=== PATIENT | male | born 1945 | race Caucasian/White ===

== ENCOUNTER 2024-08-31 13:39 | Inpatient (IN) ==
[2024-08-31] MEDS: OPTIRAY 320 125ml IV ONE (13:58)
--- NOTE | 2024-08-31 14:08 | CT Scan Report ---
CT head/brain wo con CLINICAL HISTORY: 79 years-old Male with neuro deficit, acute stroke suspected. Acute stroke like sy mptoms TECHNIQUE: Multiple axial CT images of the head were obtained without contrast. A dose lowering tech nique was utilized adhering to the principles of ALARA. COMPARISON: None FINDINGS: No acute intracranial hemorrhage, midline shift, intracranial mass, hydrocephalus, territorial ischem ia or abnormal extra-axial collection. Involutional changes with chronic microvascular ischemic disea se. Cerebral vascular calcifications. Calcifications are noted within the right lentiform nucleus. 12 mm hypodense focus in the posterior right mid cerebellar hemisphere on image 7 series 2. The calvarium is intact. The paranasal sinuses, mastoid air cells, and middle ear cavities are clear . IMPRESSION: 1. No acute intracranial hemorrhage, midline shift or acute territorial infarct. 2. Involutional changes with chronic microvascular ischemic disease. 3. Age-indeterminate right cerebellar lacunar infarct. ACT 112: Negative or not required by law. The above report was generated using voice recognition software. It may contain grammatical, syntax o r spelling errors. Electronically signed by: Fredis Teixeira M.D. 08/31/2024 2:06 PM
--- NOTE | 2024-08-31 14:16 | Emergency Department Note ---
Impression & Plan Stroke-like symptom, Second degree heart block, Elevated troponin I level, Carotid artery stenosis ED Provider Note NAME: JANELL MARION AGE: 79 SEX: M : 1945 ARRIVES VIA: Walk-In INFORMANT: Patient, the patient's significant other ED PROVIDER(S): Erich Zapien DO CHIEF COMPLAINT: Strokelike symptoms HPI: The patient is an 79-year-old male who presented to the emergency department for an evaluation of strokelike symptoms. The patient started having symptoms at approximately noon today. The patient was doing work with his significant other as well as his stepdaughter. 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 They got back together again approximately 1 PM. That is when they noticed that the patient was not acting appropriately. He seemed to be having difficulty speaking. He seemed to have weakness and was leaning to the side and was having trouble ambulating. The patient has a history of TIA. He does take Plavix. Reportedly he does not take any other blood thinners. His last known well was when they were split up at approximately noon. The patient himself denies having any headache. He denies having any nausea or vomiting. ROS: See above HPI for pertinent positives & negatives. A total of 10 systems reviewed and were otherwise negative. PAST MEDICAL HISTORY: See Below PAST SURGICAL HISTORY: See Below FAMILY HISTORY: See Below SOCIAL HISTORY: See Below HOME MEDICATIONS: See Below ALLERGIES: See Below VITALS: See Below PHYSICAL EXAMINATION: GENERAL: The patient is awake and alert. The patient is somewhat anxious appearing. EYES: The conjunctivae are clear. The pupils are round and reactive. EARS, NOSE, MOUTH AND THROAT: The nose is without any evidence of any deformity. NECK: The neck is nontender and supple. RESPIRATORY: Normal respiratory effort is noted there is no evidence of wheezing rhonchi or rales CARDIOVASCULAR: Irregular heart sounds were noted to auscultation. There is no definite murmur. GASTROINTESTINAL: The abdomen is soft. Abdomen is nontender. MUSCULOSKELETAL/EXTREMITIES: There is no evidence of gross deformity full range of motion is noted in the hips and shoulders. SKIN: There is no obvious evidence of any rash. There are no petechiae, pallor or cyanosis noted. NEUROLOGIC: Patient is awake alert and oriented x3. There was a slight right- sided facial droop. There appears to be forehead sparing. Speech is pressured but the words that the patient is able to make are clear. Upon standing the patient has difficulty with his right leg. The patient is able to hold each leg off of the bed for greater than 5 seconds. [employer]st strength is diminished in the right hand compared to the left. MEDICAL DECISION MAKING: The patient is an 79-year-old male who presented to the emergency department for an evaluation of strokelike symptoms. The patient had a last known well time that was approximately noon. He was inside the TNK window. On my initial evaluation the patient did have findings of right sided weakness and some word finding. The patient was made a stroke alert from triage. I evaluated the patient in CAT scan. I talked to the telestroke neurologist and when the patient was evaluated in the resuscitation room he appeared to have significant improvement of his symptoms. On my evaluation he was speaking normally. He was answering questions well. He had no further weakness in either upper or lower extremity. His significant other states that his symptoms did return at 1 point and he had some pressured speech but it quickly resolved. The patient was not a candidate for TNK because of his rapidly improving symptoms. Blood pressure did not require intervention. I discussed the patient's other laboratory and radiographic studies with him. He appears to have right-sided carotid artery disease. He also has an elevated troponin. He was found to be in second-degree heart block which could explain the patient's TIA. Ultimately I discussed his case with the on-call [facility] hospitalist. They have agreed to evaluate the patient in the emergency department for further management and disposition. Triage Nursing notes reviewed. Prior medical records reviewed Vital Signs: reviewed and remarkable for elevated blood pressure Differential diagnosis: Infection, dehydration, metabolic abnormality, hypo/hyperglycemia, electrolyte disturbance, anemia, hypoxia, cardiac sources, intracerebral event, toxicologic, neurologic, as well as other pathologies. ER treatment provided: See below Diagnostics interpreted by me: ECG: EKG was obtained in the emergency department. My interpretation is sinus rhythm at 61 bpm. No PVCs were noted. LVH was suggested by voltage criteria. There was a right bundle branch block pattern noted. No previous tracing was available. Cardiac Monitoring: An order was placed for continuous cardiac monitoring. The monitor shows a rate of 73 bpm with sinus rhythm. Second-degree heart block was noted at times. Laboratory studies: As stated above and show below. Imaging studies: See below. Radiographic imaging was reviewed by myself Consultation(s): I discussed this case with Dr. Lovelace who is on for telestroke neurology. I discussed this case with Mellissa who is on for the [facility] hospitalist group. ED COURSE: Procedures: none Critical Care: I have personally spent greater than 35 minutes of critical care time in the direct management of this patient. This includes bedside care, interpretation of diagnostic studies, and testing, discussion with consultants, patient, and family members, and other required patient management activities. This 35 minutes is in excess of all separately billable procedures. Past Med/Surg History Problem List (Updated 08/31/24 @ 15:06 by Erich Zapien DO) Carotid artery stenosis (Acute) Elevated troponin I level (Acute) Second degree heart block (Acute) Stroke-like symptom (Acute) Medical History Hypertension TIA (transient ischemic attack) Social History Smoking Status: Never smoker Preferred Language: Norwegian Feels Safe at Home: Yes Home Meds Home Medications Medication Instructions Recorded Confirmed clopidogrel 75 mg tablet 75 mg PO DAILY 08/31/24 doxycycline hyclate 20 mg tablet 20 mg PO BID 08/31/24 lisinopril 20 1 tab PO DAILY 08/31/24 mg-hydrochlorothiazide 12.5 mg tablet mirabegron 50 mg tablet,extended 50 mg PO DAILY 08/31/24 release 24 hr (Myrbetriq) pantoprazole 40 mg tablet,delayed 40 mg PO DAILY 08/31/24 release Results & Data (ED) Vital Signs Vital Signs - 24 hr 08/31/24 13:44 08/31/24 14:05 08/31/24 14:16 Temperature 36.6 C Temperature Source Temporal Artery Scan Pulse Rate 72 Pulse Rate [Apical] 62 65 Pulse Rhythm [Apical] Regular Pulse Strength [Apical] Normal Respiratory Rate 20 22 20 Respiratory Effort / Characteristics Non-Labored Spontaneous Non-Labored Spontaneous Non-Labored Spontaneous Respiratory Depth Normal Normal Normal Respiratory Pattern Regular Regular Blood Pressure [Right Arm] 141/110 H 145/94 H Blood Pressure Mean [Right Arm] 120 111 Blood Pressure Position [Right Arm] Sitting Pulse Oximetry 94 96 Oxygen Delivery Method Room Air Room Air Room Air Sepsis Recent Fever Within 48 Hours No Sepsis New/Unexplained Change in Mental Status No Sepsis Action Taken by Nursing No Action Required Home Medications Current Medication List: was personally reviewed by me Laboratory Data Attestation: I reviewed the patient's lab results. 08/31/24 14:04 08/31/24 14:04 Lab Results 08/31/24 08/31/24 Range/Units 14:04 14:11 WBC 9.21 (4.8-10.8) K/ul RBC 4.97 (4.70-6.10) M/uL Hgb 14.5 (14.0-18.0) g/dl Hct 43.4 (42.0-52.0) % MCV 87.3 (80.0-100.0) fL MCH 29.2 (25.0-34.0) pg MCHC 33.4 (32.0-36.0) g/dL RDW Std Deviation 45.9 (36.4-46.3) fL RDW Coeff of Jhoan 14.4 (11.5-14.5) % Plt Count 273 (130-400) K/uL MPV 11.5 (9.4-12.4) fL Immature Gran % (Auto) 0.4 % Neut % (Auto) 60.0 % Lymph % (Auto) 24.1 % [place] % (Auto) 11.4 % Eos % (Auto) 3.1 % Baso % (Auto) 1.0 % Neut # (Auto) 5.52 (1.40-6.50) K/uL Lymph # (Auto) 2.22 (1.20-3.40) K/uL [place] # (Auto) 1.05 H (0.11-0.59) K/uL Eos # (Auto) 0.29 (0.00-0.50) K/uL Baso # (Auto) 0.09 (0.00-0.20) K/uL Immature Gran # (Auto) 0.04 (0.01-0.20) K/uL PT 11.2 (9.0-12.0) Seconds INR 1.0 (0.9-1.1) APTT 27 (21-31) Seconds PTT Ratio 1.0 Sodium 138 (136-145) mmol/L Potassium 3.8 (3.5-5.1) mmol/L Chloride 105 (98-107) mmol/L Carbon Dioxide 25 (21-32) mmol/L Anion Gap 8 (3-11) BUN 19 (6-23) mg/dl Creatinine 1.14 (0.6-1.4) mg/dl Est Cr Clr Drug Dosing 60.7 ml/min eGFR 64.61 BUN/Creatinine Ratio 16.7 (10-20) Glucose 102 H (70-99(Fasting)) mg/dl POC Glucose 113 H (70-99) mg/dl Calcium 8.9 (8.6-10.3) mg/dl Magnesium 1.9 (1.7-2.4) mg/dl Total Bilirubin 1.8 H (0.2-1.0) mg/dl AST 32 (13-39) U/L ALT 22 (7-52) U/L Alkaline Phosphatase 69 (34-104) U/L Troponin I High Sens 503.0 H* (0-20) pg/ml Total Protein 6.9 (6.0-8.3) gm/dl Albumin 4.1 (3.4-5.0) gm/dl Globulin 2.8 (2.5-4.0) gm/dl Albumin/Globulin Ratio 1.5 (0.9-2) Administered Medications Discontinued Medications Ioversol (Optiray 320 125ml) 120 ml IV ONCE ONE Stop: 08/31/24 13:59 Last Admin: 08/31/24 13:58 Dose: 120 ml Documented By: EDK Imaging Data Attestation: I personally reviewed and interpreted this imaging study as follows: My Impression: 1 view chest x-ray was obtained in the emergency department. My interpretation is no free air or definite infiltrate, final report below. CT the brain was obtained in the emergency department. My interpretation is no intracranial hemorrhage or mass effect, final report below. Radiologist's Impression: Chest X-Ray 08/31/24 13:49 XR chest 1V portable HISTORY: 79 years-old Male neuro deficit, acute stroke suspected COMPARISON: None TECHNIQUE: AP view of the chest FINDINGS: Cardiac silhouette is enlarged. Descending thoracic aortic tortuosity. Mild coarsening of interstitium is likely chronic. No pneumothorax, pleural effusion or airspace consolidation. Bones appear grossly intact. Mild right hemidiaphragmatic elevation. IMPRESSION: Cardiomegaly without acute process. ACT 112: Negative or not required by law. The above report was generated using voice recognition software. It may contain grammatical, syntax or spelling errors. Electronically signed by: Fredis Teixeira M.D. 08/31/2024 2:[address] 08/31/24 13:49 CT head/brain wo con CLINICAL HISTORY: 79 years-old Male with neuro deficit, acute stroke suspected. Acute stroke like symptoms TECHNIQUE: Multiple axial CT images of the head were obtained without contrast. A dose lowering technique was utilized adhering to the principles of ALARA. COMPARISON: None FINDINGS: No acute intracranial hemorrhage, midline shift, intracranial mass, hydrocephalus, territorial ischemia or abnormal extra-axial collection. Involutional changes with chronic microvascular ischemic disease. Cerebral vascular calcifications. Calcifications are noted within the right lentiform nucleus. 12 mm hypodense focus in the posterior right mid cerebellar hemisphere on image 7 series 2. The calvarium is intact. The paranasal sinuses, mastoid air cells, and middle ear cavities are clear. IMPRESSION: 1. No acute intracranial hemorrhage, midline shift or acute territorial infarct. 2. Involutional changes with chronic microvascular ischemic disease. 3. Age-indeterminate right cerebellar lacunar infarct. ACT 112: Negative or not required by law. The above report was generated using voice recognition software. It may contain grammatical, syntax or spelling errors. Electronically signed by: Fredis Teixeira M.D. 08/31/2024 2:06 PM Head CTA 08/31/24 13:49 CT angio head w con, CT angio neck with con CLINICAL HISTORY: 79 years-old Male with neuro deficit, acute stroke suspected. Acute strokelike symptoms COMPARISON STUDY: Head CT same day TECHNIQUE: Following the IV administration of 120 cc of Optiray, CT angiogram of the head and neck was performed. Images are reviewed in the axial, sagittal, and coronal planes. 3-D MIPS images are created and assessed. IV contrast was administered without complication. All measurements were obtained according to NASCET criteria. A dose lowering technique was utilized adhering to the principles of ALARA. CT DOSE: 1126.42 mGy.cm FINDINGS: CT ANGIOGRAM OF THE HEAD AND NECK: Patent common carotid arteries. Atherosclerosis of the carotid bulbs, right greater than left. There is less than 50% stenosis of the proximal cervical segment left ICA. There is approximately 80% stenosis at the origin of the right ICA. The remainder of the right ICA is patent. The bilateral anterior and middle cerebral arteries are also patent. The vertebrobasilar system and posterior cerebral arteries are widely patent. There is no aneurysm, high-grade stenosis, or proximal branch occlusion identified. Dural sinuses appear patent. Involutional changes with chronic microvascular ischemic disease. Multilevel degenerative changes of the cervical spine. When apices are clear without pneumothorax. IMPRESSION: 1. High-grade stenosis of the proximal cervical segment right ICA secondary to prominent atherosclerotic plaque. 2. No additional high-grade stenosis, aneurysm, dissection or arterial occlusion identified within the head or neck. ACT 112: Negative or not required by law. The above report was generated using voice recognition software. It may contain grammatical, syntax or spelling errors. Electronically signed by: Fredis Teixeira M.D. 08/31/2024 2:17 PM Neck CTA 08/31/24 13:49 CT angio head w con, CT angio neck with con CLINICAL HISTORY: 79 years-old Male with neuro deficit, acute stroke suspected. Acute strokelike symptoms COMPARISON STUDY: Head CT same day TECHNIQUE: Following the IV administration of 120 cc of Optiray, CT angiogram of the head and neck was performed. Images are reviewed in the axial, sagittal, and coronal planes. 3-D MIPS images are created and assessed. IV contrast was administered without complication. All measurements were obtained according to NASCET criteria. A dose lowering technique was utilized adhering to the principles of ALARA. CT DOSE: 1126.42 mGy.cm FINDINGS: CT ANGIOGRAM OF THE HEAD AND NECK: Patent common carotid arteries. Atherosclerosis of the carotid bulbs, right greater than left. There is less than 50% stenosis of the proximal cervical segment left ICA. There is approximately 80% stenosis at the origin of the right ICA. The remainder of the right ICA is patent. The bilateral anterior and middle cerebral arteries are also patent. The vertebrobasilar system and posterior cerebral arteries are widely patent. There is no aneurysm, high-grade stenosis, or proximal branch occlusion identified. Dural sinuses appear patent. Involutional changes with chronic microvascular ischemic disease. Multilevel degenerative changes of the cervical spine. When apices are clear without pneumothorax. IMPRESSION: 1. High-grade stenosis of the proximal cervical segment right ICA secondary to prominent atherosclerotic plaque. 2. No additional high-grade stenosis, aneurysm, dissection or arterial occlusion identified within the head or neck. ACT 112: Negative or not required by law. The above report was generated using voice recognition software. It may contain grammatical, syntax or spelling errors. Electronically signed by: Fredis Teixeira M.D. 08/31/2024 2:17 PM Discharge Plan Visit Data Chief Complaint: TIA Symptoms Stated Complaint: WEAKNESS, DIZZINESS, SLURRED SPEECH, NUMBNESS ED Provider: Erich Zapien Discharge Problem: Stroke-like symptom, Second degree heart block, Elevated troponin I level, Carotid artery stenosis Patient Disposition: Being Evaluated by Hospitalist Forms Stand Alone Forms: My [facility] Prescriptions Prescriptions: No Action lisinopril-hydrochlorothiazide 20-12.5 mg tablet 1 tab PO DAILY clopidogrel 75 mg tablet 75 mg PO DAILY pantoprazole 40 mg tablet,delayed release (DR/EC) 40 mg PO DAILY doxycycline hyclate 20 mg tablet 20 mg PO BID mirabegron [Myrbetriq] 50 mg tablet extended release 24 hr 50 mg PO DAILY Referrals Referrals: PCP,NO [Physician] - Discharge Problem: Carotid artery stenosis Qualifiers: Laterality: right Qualified Code(s): I65.21 - Occlusion and stenosis of right carotid artery
[2024-08-31 14:17] LABS: Basophils # (auto) 0.09 K/uL (0.00-0.20); Eosinophils # (auto) 0.29 K/uL (0.00-0.50); Eosinophils % (auto) 3.1 %; Hematocrit (blood only) 43.4 % (42.0-52.0); Hemoglobin 14.5 g/dl (14.0-18.0); Immature Granulocytes # (auto) 0.04 K/uL (0.01-0.20); Immature Granulocytes % (auto) 0.4 %; Lymphocytes # (auto) 2.22 K/uL (1.20-3.40); Lymphocytes % (auto) 24.1 %; Mean Corpuscular Hemoglobin 29.2 pg (25.0-34.0); Mean Corpuscular Hgb Conc 33.4 g/dL (32.0-36.0); Mean Corpuscular Volume 87.3 fL (80.0-100.0); Mean Platelet Volume 11.5 fL (9.4-12.4); Monocytes # (auto) 1.05 K/uL (0.11-0.59); Monocytes % (auto) 11.4 %; Neutrophils # (auto) 5.52 K/uL (1.40-6.50); Platelet Count 273 K/uL (130-400); RDW Coefficient of Variation 14.4 % (11.5-14.5); RDW Standard Deviation 45.9 fL (36.4-46.3); Red Blood Count 4.97 M/uL (4.70-6.10); White Blood Count 9.21 K/ul (4.8-10.8)
--- NOTE | 2024-08-31 14:19 | CT Scan Report ---
CT angio head w con, CT angio neck with con CLINICAL HISTORY: 79 years-old Male with neuro deficit, acute stroke suspected. Acute strokelike s ymptoms COMPARISON STUDY: Head CT same day TECHNIQUE: Following the IV administration of 120 cc of Optiray, CT angiogram of the head and neck wa s performed. Images are reviewed in the axial, sagittal, and coronal planes. 3-D MIPS images are crea lisa and assessed. IV contrast was administered without complication. All measurements were obtained a ccording to NASCET criteria. A dose lowering technique was utilized adhering to the principles of ALA RA. CT DOSE: 1126.42 mGy.cm FINDINGS: CT ANGIOGRAM OF THE HEAD AND NECK: Patent common carotid arteries. Atherosclerosis of the carotid bulbs, right greater than left. There is less than 50% stenosis of the proximal cervical segment left ICA. There is approximately 80% steno sis at the origin of the right ICA. The remainder of the right ICA is patent. The bilateral anterior and middle cerebral arteries are also patent. The vertebrobasilar system and posterior cerebral arter ies are widely patent. There is no aneurysm, high-grade stenosis, or proximal branch occlusion identi fied. Dural sinuses appear patent. Involutional changes with chronic microvascular ischemic disease. Multilevel degenerative changes of the cervical spine. When apices are clear without pneumothorax. IMPRESSION: 1. High-grade stenosis of the proximal cervical segment right ICA secondary to prominent atherosclero tic plaque. 2. No additional high-grade stenosis, aneurysm, dissection or arterial occlusion identified within th e head or neck. ACT 112: Negative or not required by law. The above report was generated using voice recognition software. It may contain grammatical, syntax o r spelling errors. Electronically signed by: Fredis Teixeira M.D. 08/31/2024 2:17 PM
[2024-08-31 14:35] LABS: Albumin Globulin Ratio 1.5 (0.9-2); Albumin Level 4.1 gm/dl (3.4-5.0); BUN Creatinine Ratio 16.7 (10-20); Bilirubin,Total 1.8 mg/dl (0.2-1.0); Calcium 8.9 mg/dl (8.6-10.3); Creatinine Clr Calc Pharmacy 60.7 ml/min; Globulin 2.8 gm/dl (2.5-4.0); Magnesium 1.9 mg/dl (1.7-2.4); Potassium 3.8 mmol/L (3.5-5.1); Total Protein 6.9 gm/dl (6.0-8.3)
[2024-08-31 14:44] LABS: Partial Thromboplastin Time 27 Seconds (21-31); Prothrombin Time 11.2 Seconds (9.0-12.0)
--- NOTE | 2024-08-31 14:48 | XRay Report ---
XR chest 1V portable HISTORY: 79 years-old Male neuro deficit, acute stroke suspected COMPARISON: None TECHNIQUE: AP view of the chest FINDINGS: Cardiac silhouette is enlarged. Descending thoracic aortic tortuosity. Mild coarsening of interstitiu m is likely chronic. No pneumothorax, pleural effusion or airspace consolidation. Bones appear grossl y intact. Mild right hemidiaphragmatic elevation. IMPRESSION: Cardiomegaly without acute process. ACT 112: Negative or not required by law. The above report was generated using voice recognition software. It may contain grammatical, syntax o r spelling errors. Electronically signed by: Fredis Teixeira M.D. 08/31/2024 2:46 PM
--- NOTE | 2024-08-31 15:09 | History & Physical Report ---
Date of Service August 31, 2024 Assessment & Plan (1) Stroke-like symptoms: (2) Elevated troponin I level: Plan Roldan Raphael is an 79y/o M with PMHx significant for hypertensive heart disease without evidence of congestive heart failure, history of cryptogenic CVA/TIA in 2017 chronically treated with dual antiplatelet therapy, moderate right internal carotid artery stenosis, underlying conduction disease (right bundle branch block, left anterior fascicular block, first-degree AV block), moderate aortic root enlargement, mild ascending aortic enlargement, dyslipidemia, GERD, history of prostate cancer s/p radiation therapy, urinary incontinence and HTN who presented to the ED for evaluation of stroke-like symptoms. Patient was made a stroke alert on arrival to the ED. Telestroke was consulted and recommended against TNK use given that his last known well was around 12PM this afternoon. Stroke-Like Symptoms & High-Grade Right Internal Carotid Artery Stenosis: Vitals stable on presentation. Labs rather unremarkable except for elevated trop onin I level as per below. Head CT negative for acute intracranial hemorrhage or territorial infarct but does note involutional changes with chronic microvascular ischemic disease in addition to an age-indeterminate right cerebellar lacunar infarct. Head and neck CTA imaging revealed high-grade stenosis (80%) of the proximal cervical segment right ICA secondary to prominent atherosclerotic plaque. Lyme screen negative. Brain MRI pending. Echocardiogram pending. Neuro consult pending. Routine neurochecks, speech evaluation pending. NPO for now pending speech evaluation. Continue home Plavix and ASA. Starting patient on atorvastatin 40mg daily tomorrow morning - he was not previously on any cholesterol medications. Follow AM labs including lipid panel, Hgb A1c. PT/OT evaluations pending. Elevated Troponin I Level, Hypertensive Heart Disease & Conduction Disease: Troponin 503 on presentation. Initial EKG showed sinus rhythm with marked sinus arrhythmia with first-degree AV block and bifascicular block. Patient is without any chest pain. CXR revealed cardiomegaly without acute process. He recently established with [facility] at [facility] last month [Dr. Carpio]. Patient with known history of first-degree AV block, RBBB and left anterior fascicular block and LVH. Previous echocardiogram report from 08/28/2023 --> LVEF of 55 to 60%, mildly dilated left ventricle, moderate left ventricular hypertrophy, mild left atrial dilatation, moderately dilated aortic root and mildly dilated ascending aorta and arch. Will continue to trend troponin closely. If troponin were to rise any further, patient will most likely need to be started on IV heparin. Cardiology consult pending for further input/recommendations. EKG with chest pain PRN. Repeat EKG tomorrow AM. Updated echocardiogram pending as per above. Other Chronic Medical Conditions: GERD, urinary incontinence --> Can continue home medications for these specific conditions. DVT Prophylaxis: SCDs for now in addition to ASA/Plavix. Code Status: FULL CODE PCP: Snow Aguayo DO Disposition: Admit to PCU/Telemetry Patient seen in collaboration with Dr. Weaver. Please see addendum. I spent a total of 60 minutes coordinating, documenting, and providing care for this patient excluding time spent in the performance of separately billed services. This included personally reviewing all current laboratories and imaging studies, medical reconciliation, outpatient chart review and discussion with specialists. This chart was completed in part utilizing Speech Voice Recognition Software. Grammatical errors, random word insertions, pronoun errors, and incomplete sentences are an occasional consequence of this system due to software limitations, ambient noise, and hardware issues. Any formal questions or concerns about the content, text, or information contained within the body of this dictation should be directly addressed to the provider for clarification. History of Present Illness Chief Complaint: Stroke-Like Symptoms Primary Care Provider: Snow Aguayo DO Roldan Raphael is an 79y/o M with PMHx significant for hypertensive heart disease without evidence of congestive heart failure, history of cryptogenic CVA/TIA in 2017 chronically treated with dual antiplatelet therapy, moderate right internal carotid artery stenosis, underlying conduction disease (right bundle branch block, left anterior fascicular block, first-degree AV block), moderate aortic root enlargement, mild ascending aortic enlargement, dyslipidemia, GERD, peripheral neuropathy, history of prostate cancer s/p radiation therapy, urinary incontinence and HTN who presented to the ED for evaluation of stroke-like symptoms. History obtained from patient, family at bedside and associated chart review. Symptoms seemed to have started around 1PM this afternoon. Family at bedside mentions he had some slurring of his speech in addition to a delay in his speech during conversation. He also had some numbness and tingling in both of his upper extremities (R>L) - which has not yet fully resolved. Family noticed some lower right-sided facial drooping once they got to the ED but mentions it has seemed to improve. Patient had previously noticed some brightness in his vision yesterday that lasted approximately 45 minutes to an hour and resolved without any intervention. The visual disturbance eventually did reoccur later in the day and lasted for about 45 minutes before resolving without any intervention once again. He was having trouble walking when this all started around 1PM. Family reports that he had no balance at all when this started, mentions he couldn't even take a step forward or move around without leaning on nearby objects for support in order to prevent him from falling. No loss of bladder or bowel control after this all started. Patient reports that he has some balance issues at baseline due to his peripheral neuropathy, family mentions that he frequently stumbles at baseline. Patient did have some lightheadedness when his other symptoms started this afternoon. He does have a history of TIA but no known history of CVA. He denies any chest pain or discomfort. Patient was actually made a stroke alert on arrival to the ED. Telestroke was consulted and recommended against TNK use given that his last known well was around 12PM this afternoon. Allergies Allergy/AdvReac Type Severity Reaction Status Date / Time No Known Allergies Allergy Verified 08/31/24 16:29 Home Medications Medication Instructions Recorded Confirmed Type amlodipine 5 mg tablet 5 mg PO QAM 08/31/24 08/31/24 History aspirin 81 mg PO DAILY 08/31/24 08/31/24 History clopidogrel 75 mg tablet 75 mg PO DAILY 08/31/24 08/31/24 History lisinopril 20 1 tab PO DAILY 08/31/24 08/31/24 History mg-hydrochlorothiazide 12.5 mg tablet mirabegron 50 mg tablet,extended 50 mg PO DAILY 08/31/24 08/31/24 History release 24 hr (Myrbetriq) pantoprazole 40 mg tablet,delayed 40 mg PO DAILY 08/31/24 08/31/24 History release Past Med/Surg History Problem List Stroke-like symptoms Carotid artery stenosis (Acute) Elevated troponin I level (Acute) Second degree heart block (Acute) Stroke-like symptom (Acute) Medical History Hypertension TIA (transient ischemic attack) Social History Smoking Status: Never smoker Hx Alcohol Use: Yes Alcohol type: hard liquor Hx Substance Use: No Preferred Language: Mosotho Communication Ability: Effective Cuff Runner Required: No Beliefs That Will Affect Care: None Current Living Situation: Spouse Other Information That Helps Us Care for You: No Feels Safe at Home: Yes Safety Concerns: Feels Safe At This Time Assistive Devices: Glasses Review of Systems Review of Systems: At least ten systems reviewed and negative, except as noted in the HPI. Physical Exam Physical Exam: Please refer to Dr. Weaver's addendum for physical examination findings. Results & Data Results & Data Vital Signs (Past 12 Hours) Vital Signs Temp Pulse Pulse Resp BP Pulse Ox O2 Del Method 08/31/24 14:16 65 20 145/94 H 96 Room Air 08/31/24 14:05 62 22 141/110 H Room Air 08/31/24 13:44 36.6 C 72 20 94 Room Air Laboratory Results Short CBC 08/31/24 Range/Units 14:04 WBC 9.21 (4.8-10.8) K/ul Hgb 14.5 (14.0-18.0) g/dl Hct 43.4 (42.0-52.0) % Plt Count 273 (130-400) K/uL BMP 08/31/24 14:04 Sodium 138 Potassium 3.8 Chloride 105 Carbon Dioxide 25 BUN 19 Creatinine 1.14 Glucose 102 H Calcium 8.9 Liver Function 08/31/24 Range/Units 14:04 Total Bilirubin 1.8 H (0.2-1.0) mg/dl AST 32 (13-39) U/L ALT 22 (7-52) U/L Alkaline Phosphatase 69 (34-104) U/L Albumin 4.1 (3.4-5.0) gm/dl Diagnostic Findings Chest X-Ray 08/31/24 13:49 XR chest 1V portable HISTORY: 79 years-old Male neuro deficit, acute stroke suspected COMPARISON: None TECHNIQUE: AP view of the chest FINDINGS: Cardiac silhouette is enlarged. Descending thoracic aortic tortuosity. Mild coarsening of interstitium is likely chronic. No pneumothorax, pleural effusion or airspace consolidation. Bones appear grossly intact. Mild right hemidiaphragmatic elevation. IMPRESSION: Cardiomegaly without acute process. ACT 112: Negative or not required by law. The above report was generated using voice recognition software. It may contain grammatical, syntax or spelling errors. Electronically signed by: Fredis Teixeira M.D. 08/31/2024 2:[address] 08/31/24 13:49 CT head/brain wo con CLINICAL HISTORY: 79 years-old Male with neuro deficit, acute stroke suspected. Acute stroke like symptoms TECHNIQUE: Multiple axial CT images of the head were obtained without contrast. A dose lowering technique was utilized adhering to the principles of ALARA. COMPARISON: None FINDINGS: No acute intracranial hemorrhage, midline shift, intracranial mass, hydrocephalus, territorial ischemia or abnormal extra-axial collection. Involutional changes with chronic microvascular ischemic disease. Cerebral vascular calcifications. Calcifications are noted within the right lentiform nucleus. 12 mm hypodense focus in the posterior right mid cerebellar hemisphere on image 7 series 2. The calvarium is intact. The paranasal sinuses, mastoid air cells, and middle ear cavities are clear. IMPRESSION: 1. No acute intracranial hemorrhage, midline shift or acute territorial infarct. 2. Involutional changes with chronic microvascular ischemic disease. 3. Age-indeterminate right cerebellar lacunar infarct. ACT 112: Negative or not required by law. The above report was generated using voice recognition software. It may contain grammatical, syntax or spelling errors. Electronically signed by: Fredis Teixeira M.D. 08/31/2024 2:06 PM Head CTA 08/31/24 13:49 CT angio head w con, CT angio neck with con CLINICAL HISTORY: 79 years-old Male with neuro deficit, acute stroke suspected. Acute strokelike symptoms COMPARISON STUDY: Head CT same day TECHNIQUE: Following the IV administration of 120 cc of Optiray, CT angiogram of the head and neck was performed. Images are reviewed in the axial, sagittal, and coronal planes. 3-D MIPS images are created and assessed. IV contrast was administered without complication. All measurements were obtained according to NASCET criteria. A dose lowering technique was utilized adhering to the principles of ALARA. CT DOSE: 1126.42 mGy.cm FINDINGS: CT ANGIOGRAM OF THE HEAD AND NECK: Patent common carotid arteries. Atherosclerosis of the carotid bulbs, right greater than left. There is less than 50% stenosis of the proximal cervical segment left ICA. There is approximately 80% stenosis at the origin of the right ICA. The remainder of the right ICA is patent. The bilateral anterior and middle cerebral arteries are also patent. The vertebrobasilar system and posterior cerebral arteries are widely patent. There is no aneurysm, high-grade stenosis, or proximal branch occlusion identified. Dural sinuses appear patent. Involutional changes with chronic microvascular ischemic disease. Multilevel degenerative changes of the cervical spine. When apices are clear without pneumothorax. IMPRESSION: 1. High-grade stenosis of the proximal cervical segment right ICA secondary to prominent atherosclerotic plaque. 2. No additional high-grade stenosis, aneurysm, dissection or arterial occlusion identified within the head or neck. ACT 112: Negative or not required by law. The above report was generated using voice recognition software. It may contain grammatical, syntax or spelling errors. Electronically signed by: Fredis Teixeira M.D. 08/31/2024 2:17 PM Neck CTA 08/31/24 13:49 CT angio head w con, CT angio neck with con CLINICAL HISTORY: 79 years-old Male with neuro deficit, acute stroke suspected. Acute strokelike symptoms COMPARISON STUDY: Head CT same day TECHNIQUE: Following the IV administration of 120 cc of Optiray, CT angiogram of the head and neck was performed. Images are reviewed in the axial, sagittal, and coronal planes. 3-D MIPS images are created and assessed. IV contrast was administered without complication. All measurements were obtained according to NASCET criteria. A dose lowering technique was utilized adhering to the principles of ALARA. CT DOSE: 1126.42 mGy.cm FINDINGS: CT ANGIOGRAM OF THE HEAD AND NECK: Patent common carotid arteries. Atherosclerosis of the carotid bulbs, right greater than left. There is less than 50% stenosis of the proximal cervical segment left ICA. There is approximately 80% stenosis at the origin of the right ICA. The remainder of the right ICA is patent. The bilateral anterior and middle cerebral arteries are also patent. The vertebrobasilar system and posterior cerebral arteries are widely patent. There is no aneurysm, high-grade stenosis, or proximal branch occlusion identified. Dural sinuses appear patent. Involutional changes with chronic microvascular ischemic disease. Multilevel degenerative changes of the cervical spine. When apices are clear without pneumothorax. IMPRESSION: 1. High-grade stenosis of the proximal cervical segment right ICA secondary to prominent atherosclerotic plaque. 2. No additional high-grade stenosis, aneurysm, dissection or arterial occlusion identified within the head or neck. ACT 112: Negative or not required by law. The above report was generated using voice recognition software. It may contain grammatical, syntax or spelling errors. Electronically signed by: Fredis Teixeira M.D. 08/31/2024 2:17 PM Medications Administered Discontinued Medications Ioversol (Optiray 320 125ml) 120 ml IV ONCE ONE Stop: 08/31/24 13:59 Last Admin: 08/31/24 13:58 Dose: 120 ml Documented By: EDK Code Status & VTE Plan Code Status FULL CODE Supervising Physician Co-Signing Physician Notes Patient is an 79-year-old male with history of hypertension, TIA, hyperlipidemia, right carotid artery stenosis, bifascicular block, aortic root enlargement, prostate cancer s/p radiation and other medical problems presents with history of strokelike symptoms. Patient states that he first noticed to have bright light " flares" of both eyes yesterday transiently and resolved spontaneously. At around 1 PM today patient had slurring of speech, numbness and tingling of both legs upper extremities right greater than left and some right facial droop which resolved while in ED. He still have some right upper extremity tingling sensation. Family also noted to have balance issues associated with ambulatory dysfunction and has been leaning to objects while ambulating. 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 He did not admit to have some dizziness this afternoon as well. Please review HPI for complete details of presentation. He denies any chest pain, dyspnea, nausea, vomiting, abdominal pain, fever, chills. I personally reviewed blood work and imaging studies. Blood work showed elevated total bilirubin 1.8, elevated troponin 503. Lyme screen is negative. Chest x- ray showed no acute process. CT head showed findings suggestive of chronic microvascular ischemic disease, age indeterminant right cerebellar lacunar infarct. Head and neck CTA showed high-grade stenosis of the proximal cervical segment of the right RCA. EKG showed sinus rhythm with marked sinus arrhythmia with first-degree AV block, right bundle branch block, left anterior fascicular block, QTc 469, nonspecific ST-T wave changes. Physical Exam: Vitals signs as noted above General Appearance:Moderately built and nourished, no apparent distress Head: normocephalic, Atraumatic Eyes: normal inspection, EOMI Neck: supple, Trachea midline Respiratory/Chest: Normal breath sounds, CTA, No accessory muscle use Cardiovascular: S1, S2, No murmur Abdomen/GI:Soft, Non tender, Bowel sounds present Extremities/Musculoskeletal:normal inspection, no edema Neurologic/Psych:AAOX3,? Minimal right facial droop, speech clear, +Dysmetria,Adiadochokinesia, gait not performed otherwise grossly no focal deficits Skin: normal color, warm Strokelike symptoms concerning for acute CVA H/O R high-grade internal carotid artery stenosis H/O TIA Age indeterminant right cerebellar lacunar infarct Ambulatory dysfunction Troponin elevation : Concern for NSTEMI Chronic bifascicular block Stroke work up including lipid panel, A1C, MRI Brain, ECHO Speech and swallow eval Continue aspirin, Plavix Discussed with neurologist on-call--given CVA likely cardioembolic, advised to start IV heparin Start on Lipitor 40 mg daily Neuro checks, Neurology consult PT/OT eval Allow permissive HTN in setting of acute CVA Trend troponins Cardiology consulted as well Fall precautions I personally interviewed and examined at bedside. Patient's care is coordinated with Mellissa Johnson PA-C. I have reviewed the advanced practitioner's documentation, and I agree with plan of care. Please refer to the documentation above for details of patient's presentation and for discussion of other issues. I spent a total [id number] coordinating, documenting, and providing care for this patient excluding time spent in the performance of separately billed services.
[2024-08-31] MEDS ORDERED: POLYETHYLENE (MIRALAX) 17 GM PACK PO PRN (16:28)
--- OUTSIDE RECORDS SUMMARY | 2024-08-31 16:29 | External Medical Summary | Summary of Care ---
Author Name Unknown Organization [facility] Address [address] [place] [address] Phone [phone] Care Team Providers Care Acid Cutter Name Role Phone Snow Aguayo DO Primary Care Provider [phone] Reason for Referral * Evaluate & Treat - Unlimited Visits (Within 30 days (routine)) - Authorized Specialty Diagnoses / Procedures Referred By Gautam viera Referred To Contact Dermatology Diagnoses Skin aging Seborrheic keratosis Skin lesion Snow Aguayo DO [address] [place] [address] Referral ID Status Reason Start Date Expiration Date Visits Requested Visits Authorized [id number] Authorized Specialty Services Required 08/14/2024 999 999 Question Answer Referral Priority Within 30 days (routine) Where should this appointment be scheduled? [facility] Are you referring the patient for Mohs Surgery and have a current positive skin cancer biopsy result? No What is the reason for the patient referral? Rash/Skin Check/Eval of Lesion or Mole Reason for Visit * Reason Onset Date Comments Follow Up Immunization RSV Vaccine 08/14/2024 Encounter Details Date Type Department Care Team (Late st Contact Info) Description 08/14/2024 11:20 AM EDT Office Visit Family Practice [address] [facility], [place] [address] [place] [address] Snow Aguayo DO [address] [place] [address] Skin aging*; Seborrheic keratosis; Skin lesion; Rib deformity; Need for RSV vaccination Allergies No known active allergiesdocumented as of this encounter (statuses as of 08/14/2024) Medications Medication Sig Dispensed Refills Start Date End Date Status Aspirin 81 MG Oral Tablet Delayed Release (Aspirin 81) Take 1 Tablet by mouth every evening. Active Myrbetriq 50 MG Oral Tablet Extended Release 24 Hour (Mirabegron ER)Indications:Histor y of prostate cancer Take 1 Tablet by mouth daily. 100 Tablet 3 01/15/2024 Active amLODIPine Besylate 5 MG Oral Tablet (Norvasc)Indications: Hypertension goal BP (blood pressure) < 140/90 Take 1 Tablet by mouth in the morning. 100 Tablet 3 01/17/2024 Active Clopidogrel Bisulfate 75 MG Oral Tablet (pLAVix)Indications:H istory of TIA (transient ischemic attack) Take 1 Tablet by mouth in the morning. 100 Tablet 3 01/17/2024 Active Doxycycline Hyclate 20 MG Oral Tablet Take 1 Tablet by mouth in the morning and 1 Tablet before bedtime. 200 Tablet 3 01/17/2024 Active Lisinopril 20 MG Oral Tablet (Prinivil)Indications :Hypertension goal BP (blood pressure) < 140/90 Take 1 Tablet by mouth every evening. 100 Tablet 3 01/17/2024 Active Pantoprazole Sodium 40 MG Oral Tablet Delayed Release (Protonix)Indications :Gastroesophageal reflux disease, unspecified whether esophagitis present Take 1 Tablet by mouth in the morning. 100 Tablet 3 01/17/2024 Active Metamucil 4 in 1 Fiber 43 % Oral Powder (Psyllium) Take by mouth daily. Active Lisinopril-hydroCHLOR Othiazide 20-12.5 MG Oral TabletIndications:Ess ential hypertension with goal blood pressure less than 140/90 Take 1 Tablet by mouth in the morning. 100 Tablet 1 04/09/2024 Active RSV Pre-Fusion F A&B Vac Rcmb 120 MCG/0.5ML Intramuscular Solution Reconstituted (Abrysvo)Indications: Need for RSV vaccination Inject 0.5 mL into a large muscle once for 1 dose. 1 Each 08/14/2024 08/15/2024 Active documented as of this encounter (statuses as of 08/14/2024) Active Problems Problem Noted Date Diagnosed Date Aortic dilatation 01/09/2024 History of TIA (transient ischemic attack) 01/09 Essential hypertension with goal blood pressure less than 140/90 01/08/2024 History of prostate cancer 01/08/2024 GERD (gastroesophageal reflux disease) 4 documented as of this encounter (statuses as of 08/14/2024) Immunizations Name Administration Dates Next Due COVID-19 mRNA, LNP-s, No Pre serve, 2-Dose Series (Moderna) 10/08/2021,02/05/2021,01/08/2021 Pneumococcal Conjugate Vacci ne, 20-valent ([id number]) 10/02/2022 RSV Vac., Bivalent, Perfusio n F, Pf,0.5 Ml (Abrysvo) 08/14/2024 Seasonal Influenza, Quadriva lent Hd (Fluzone Hd) 10/16/2023 TDAP (age 10 and older)(Boostrix) 01/15/2024 Zoster Vaccine Recombinant (Shingrix) 02/12/2023 ,09/25/2019 documented as of this encounter Social History Tobacco Use Types Packs/Day Years Used Date Smoking Tobacco: Former Cigarettes 0.3 42.9 1 11/1980 - 09/1979 Passive Smoke Exposure: Never Smokeless Tobacco: Never Tobacco Cessation:Counseling Given: Yes Alcohol Use Standard Drinks/Week Comments Yes 7 (1 standard drink = 0.6 oz pur e alcohol) 1 bourbon drink a day PHQ-2 Answer Date Recorded PHQ Adult Total Score 0 05/27/2024 Hunger Vital Sign Answer Date Recorded Within the past 12 months, y ou worried that your food would run out before you got the money to buy more. Never true 01/08/20 24 Within the past 12 months, t he food you bought just didn't last and you didn't have money to get more. Never true 01/08/2024 Childcare Answer Date Recorded Do you feel overwhelmed with taking care of a child, family member or friend? No 01/08/2024 Does your family need help f inding childcare? (Household - for ages 0-17 years) Not on file 01/08/2024 Clothing Answer Date Recorded Have you been unable to get clothing when it was really needed? No 01/08/2024 Is your family able to get c lothes or diapers when needed? (Household - for ages 0-17 years) Not on file 01/08/2024 Personal Safety Answer Date Recorded Do you feel unsafe or have concerns for your saf ety? No 01/08/2024 Do you have concerns for you r family's safety? (Household - for ages 0-17 years) Not on file 01/08/2024 Utilities Answer Date Recorded Do you have trouble paying y our heating, water, or electric bill? No 01/08/2024 Is your family able to pay t he heat, water, or electric bill? (Household - for ages 0-17 years) Not on file 01/08/2024 Does your family have access to good internet? (Household - for ages 0-17 years) Not on file 01/08/2024 Employment Status Answer Date Recorded Are you unemployed or without regular income? No 01/08/2024 [facility] the [facility] have a [facility] income? (Household - for ages 0-17 years) Not on file 01/08/2024 Social Connections Answer Date Recorded How often do you feel lonely or isolated from th ose around you? Never 01/08/2024 Financial Resource Strain Answer Date R ecorded Do you have any trouble payi ng for your medications, or do you think you might in the future? No 01/08/2024 Does your family have troubl e paying for medicine? (Household - for ages 0-17 years) Not on file 01/08/2024 Transportation Needs Answer Date Record ed READ ONLY Do you have troubl e getting a ride to medical visits or work? Never True 01/08/2024 Does your family have a hard time getting a ride to doctors visits? (Household - for ages 0-17 years) Not on file 01/08/2024 Has lack of transportation k ept you from medical appointments, meetings, work, or from getting things needed for daily living? Check all that apply. (Adult - for ages 18 years and over) Not on file 01/08/2024 Do you (or your family) have trouble finding or paying for a ride (transportation)? (Household - for ages 0-17 years) Not on file 01/08/2024 Housing Stability Answer Date Recorded Do you currently live in a s helter or have no steady place to sleep at night? No 01/08/2024 READ ONLY Do you think you a re at risk of becoming homeless? No 01/08/2024 Does your family worry about paying for your home or becoming homeless? (Household - for ages 0-17 years) Not on file 0 01/08/2024 Are you homeless or worried that you might be in the future? (Adult - for ages 18 years and over) Not on file Are you (or your family) alejandra eless or worried that you might be in the future? (Household - for ages 0-17 years) Not on file Food Insecurity Answer Date Recorded Do you need food for this week? No 01/08/2024 Are you able to get enough f ood for your family? (Household - for ages 0-17 years) Not on file 01/08/2024 Does your family need food t his week? (Household - for ages 0-17 years) Not on file 01/08/2024 Do you always have enough fo od for your family? (Household - for ages 0-17 years) Not on file 01/08/2024 Sex and Gender Information Value Date Recorded Sex Assigned at Male 04/18/2024 4:35 PM EDT Gender Identity Male 04/18/2024 4:35 PM EDT Sexual Orientation Straight 04/18/2024 4: 35 PM EDT Job Start Date Occupation Industry Not on file Not on file Not on file documented as of this encounter Last Filed Vital Signs Vital Sign Reading Time Taken Comments Blood Pressure 132/88 08/14/2024 11:25 AM EDT Pulse 70 08/14/2024 11:25 AM EDT Temperature 36.6 C (97.8 F) 08/14/2024 11:25 AM E DT Respiratory Rate 16 08/14/2024 11:25 AM EDT Oxygen Saturation 95% 08/14/2024 11:25 AM EDT Inhaled Oxygen Concentration - - Weight 104 kg (229 lb 3.2 oz) 08/14/2024 11:25 A M EDT Height 176.5 cm (5' 9.5") 08/14/2024 11:25 AM ED T Body Mass Index 33.36 08/14/2024 11:25 AM EDT documented in this encounter Patient Instructions * Patient Instructions* Spencer, Aneta, PEACE OFFICER - 08/14/2024 11:58 AM EDT Possible side effects of RSV vaccine, (Respiratory Syncytial Virus), are usually mild and can include: Soreness, swelling or redness at injection site Low grade fever Body aches or joint pain Headache Nausea or diarrhea You may use a fever/pain reducing medication for these symptoms. LET YOUR DOCTOR KNOW IMMEDIATELY IF YOU HAVE DIFFICULTY BREATHING OR SWALLOWING, EXPERIENCE ITCHINGOF FEET OR HANDS, HAVE SWELLING OF EYES, FACE OR INSIDE OF NOSE. documented in this encounter Progress Notes * Aneta Palmer LPN - 08/14/2024 11:58 AM EDT Does the patient have an illness today with a fever more than 101F? No Has the patient ever had a serious allergic reaction after receiving a vaccination? No Does the patient have Medicare Part D? No Verified patient has prescription/drug coverage. Patient has been informed that [employer] co-pays are close to $0. In most cases co-pays will be around $10. The maximum co-pay patients may get could be as high as $200 not applicable. RSV Vaccine Information Sheet has been provided. Aneta Palmer LPN 08/14/2024 11:58 AM IMMUNIZATION ADMINISTRATION DOCUMENTATION Time Out Procedure Performed: Yes Patient Identified (Ask Name/Date of ): Yes Patient allergic to latex?No VFC Stock? No Immunization(s) verified: Yes, Immunization Name: RSV, VIS Sheet(s) given: Yes Verified Side and Site: Yes Verified Shot(s) with Parent(s)/Patient: Yes RSV was administered per clinic protocol. Patient received the RSV VIS (Vaccine Information Sheet). Aneta Palmer LPN, 08/14/2024, 11:58 AM * Snow Aguayo DO - 08/14/2024 11:15 AM EDT SUBJECTIVE: Chief Complaint Patient presents with Follow Up HPI: Roldan Raphael is a 79 year old male who presents today for regular return. Pt states that he would like to see a monologist. He notes a number of lesions on his skin that he would like removed. He notes he is using a liquid every day that is not working. It was OTC. Pt would like to establish in this area. Pt notes that his left rib cage. He notes that it sticks out further. Has a history of rib fracture. Not sure which side. Pt had his flu vaccine at [facility]. He would like RSV vaccine today. PHM: Patient Active Problem List Diagnosis Essential hypertension with goal blood pressure less than 140/90 History of prostate cancer GERD (gastroesophageal reflux disease) Aortic dilatation (HCC) History of TIA (transient ischemic attack) Current Outpatient Medications Medication Sig Dispense Refill Aspirin 81 MG Oral Tablet Delayed Release (Aspirin 81) Take 1 Tablet by mouth every evening. Myrbetriq 50 MG Oral Tablet Extended Release 24 Hour (Mirabegron ER) Take 1 Tablet by mouth daily. 100 Tablet 3 amLODIPine Besylate 5 MG Oral Tablet (Norvasc) Take 1 Tablet by mouth in the morning. 100 Tablet 3 Clopidogrel Bisulfate 75 MG Oral Tablet (pLAVix) Take 1 Tablet by mouth in the morning. 100 Tablet 3 Doxycycline Hyclate 20 MG Oral Tablet Take 1 Tablet by mouth in the morning and 1 Tablet before bedtime. 200 Tablet 3 Lisinopril 20 MG Oral Tablet (Prinivil) Take 1 Tablet by mouth every evening. 100 Tablet 3 Pantoprazole Sodium 40 MG Oral Tablet Delayed Release (Protonix) Take 1 Tablet by mouth in the morning. 100 Tablet 3 Metamucil 4 in 1 Fiber 43 % Oral Powder (Psyllium) Take by mouth daily. Lisinopril-hydroCHLOROthiazide 20-12.5 MG Oral Tablet Take 1 Tablet by mouth in the morning. 100 Tablet 1 No current facility-administered medications for this visit. Past Medical History: Diagnosis Date GERD (gastroesophageal reflux disease) History of prostate cancer Hypertension goal BP (blood pressure) < 140/90 Peripheral neuropathy TIA (transient ischemic attack) x2, he feels it was stress related Past Surgical History: Procedure Laterality Date CATARACT SURGERY[place] [address] - REMOVE TONSILS INFORMATION prostate radiation INFORMATION bilateral knee replacements INFORMATION cut thumb off with a saw, does well Review of patient's allergies indicates: No Known Allergies Family History Problem Relation Name Age of Onset Other (Other) Mother Occipital glioma Diabetes Father Hypertension Brother Diabetes Brother Family Status Relation Status Mo (Not Specified) Fa (Not Specified) Bro (Not Specified) Bro Alive Beau Alive Beau Alive Social History Tobacco Use Smoking status: Former Current packs/day: 0.25 Average packs/day: 0.3 packs/day for 42.9 years (10.7 ttl pk-yrs) Types: Cigarettes Start date: 09/1981 Quit date: 09/1979 Passive exposure: Never Smokeless tobacco: Never Substance Use Topics Alcohol use: Yes Alcohol/week: 7.0 standard drinks of alcohol Types: 7 1.5 oz of liquor per week Comment: 1 bourbon drink a day Vaping/E-Cigarette Use Vaping/E-Cigarette Use Never User Vaping/E-Cigarette Substances Vaping/E-Cigarette Devices REVIEW OF SYSTEMS: Review of Systems Constitutional: Negative for chills, fatigue, fever and unexpected weight change. Respiratory: Negative for cough, chest tightness, shortness of breath and wheezing. Cardiovascular: Negative for chest pain, palpitations and leg swelling. Gastrointestinal: Negative for abdominal pain, constipation, diarrhea, nausea and vomiting. Musculoskeletal: Negative for arthralgias, gait problem and joint swelling. As per HPI Skin: Negative for color change, pallor and rash. As per HPI OBJECTIVE: BP 132/88 (BP Site: Left Arm, BP Position: Sitting, BP Cuff Size: Large) | Pulse 70 | Temp 36.6 C(97.8 F) (Tympanic) | Resp 16 | Ht 1.765 m (5' 9.5") | Wt 104 kg (229 lb 3.2 oz) | SpO2 95% | BMI33.36 kg/m | BSA 2.26 m PHYSICAL EXAM: Physical Exam Constitutional: General: He is not in acute distress. Appearance: He is well-developed. Cardiovascular: Rate and Rhythm: Normal rate and regular rhythm. Heart sounds: Normal heart sounds. No murmur heard. No friction rub. No gallop. Pulmonary: Effort: Pulmonary effort is normal. No respiratory distress. Breath sounds: Normal breath sounds. No wheezing or rales. Abdominal: General: Bowel sounds are normal. There is no distension. Palpations: Abdomen is soft. Tenderness: There is no abdominal tenderness. There is no guarding. Musculoskeletal: General: Deformity (lower left ribcage sticking out some) present. No tenderness. Normal range of motion. Skin: General: Skin is warm and dry. Coloration: Skin is not pale. Findings: No erythema or rash. Neurological: Mental Status: He is alert and oriented to person, place, and time. ASSESSMENT/PLAN: (L90.8) Skin aging (primary encounter diagnosis) (L82.1) Seborrheic keratosis (L98.9) Skin lesion Plan: DERMATOLOGY REFERRAL OP Multiple skin tags and SKs noted. ?some actinic keratosis on scalp. Pt would like to establish withdermatology here. (M95.4) Rib deformity Plan: XR RIBS UNILATERAL W/PA CHEST MINIMUM 3 VIEWS Pt will complete rib x-ray. ?if related to previous rib fractures. (Z29.11) Need for RSV vaccination Plan: RSV Pre-Fusion F A&B Vac Rcmb 120 MCG/0.5ML Intramuscular Solution Reconstituted (Abrysvo), RSV VAC, BIVALENT, PERF, PF, 0.5 ML, 60YRS AND ABOVE Vaccine given. See admin record. Follow-up: 4 months Total time today including reviewing chart before the visit, pertinent labs, imaging reports, face to face time, and documentation time was 34 minutes. Snow Aguayo DO documented in this encounter Nursing Notes * Aneta Palmer LPN - 08/14/2024 11:19 AM EDT Patient here for routine follow up visit. Pt reports he is taking a supplement for neuropathy - does not know the name of it. Would like derm referral for exam of skin tags. Reports incontinence since prostate radiation. Pt thinks he had Flu vaccine at [facility] this season. Declined COVID vaccine. Will consider RSV vaccine. documented in this encounter Plan of Treatment Upcoming Encounters Date Type Department Care Team (Late st Contact Info) Description 08/14/2024 12:30 PM EDT Imaging XR Imaging [address], [place] [address] [place] [address] Arrived 09/02/2024 11:00 AM EDT Office Visit Urology, [facility] [address] [facility] [place] [id number] Teddy Steinberg MD [address] [place] [address] 10/07/2024 2:30 PM EST Cardiac Studies Cardiac Studies, [facility] [address] [facility] [place] [address] 10/07/2024 3:30 PM EST Imaging Vascular Lab, [facility] 2nd Floor, [place] [address] [facility] [place] [address] 11/10/2024 9:20 AM EST Office Visit Family Practice [address], [place] [address] [place] [address] Snow Aguayo, DO [address] [place] [address] 02/12/2025 3:30 PM EDT Office Visit Cardiology, [facility] [address] [facility] [place] [address] En Carpio, DO [address] [facility] [address] Pending Results Name Type Priority Associated Diagnoses Date /Time XR RIBS UNILATERAL W/PA CHEST MINIMUM 3 VIEWS Medical Imaging Routine Rib deformity 08/14/2024 12:18 PM EDT Scheduled Referrals Name Type Priority Associated Diagnoses Orde r Schedule DERMATOLOGY REFERRAL OP Referral Within 30 days (routine) Skin aging Seborrheic keratosis Skin lesion Ordered: 08/14/2024 Health Maintenance Due Date Last Done Comments Influenza Vaccine (FLU shot) (#1) 2024 10/16/2023 COVID-19 Vaccine (2023-2 5 season) 2024 10/08/2021, 02/05/2021, 01/08/2021 Postponed from 07/20/2024 (Patient Declined After Education) GFR 04/09/2025 04/09/2024, 02/27/2019, 02/27/2019 Adult Wellness Visit 05/27/2025 05/27/2024 Depression Screening 05/27/2025 05/27/2024, 04/09/2024 Albumin/Creatinine Ratio 04/09/2027 04/09/2024 DTap/Tdap Vaccines (2 - Td o r Tdap) 01/15/2034 01/15/2024 Pneumococcal Vaccine: 65+ Years Completed 10/02/2022 Zoster Vaccines Completed 02/12/2023, 09/25/2019 HPV (Gardasil) Vaccine Aged Out No lo nger eligible based on patient's age to complete this topic Hepatitis B Vaccine Aged Out No longe r eligible based on patient's age to complete this topic MENINGOCOCCAL (MENACTRA/MENVEO) Aged Out No longer eligible b ased on patient's age to complete this topic documented as of this encounter Medical Devices Not on filedocumented as of this encounter Visit Diagnoses Diagnosis Skin aging- Primary Other specified hypertrophic and atrophic condition of skin Seborrheic keratosis Other seborrheic keratosis Skin lesion Unspecified disorder of skin and subcutaneous tissue Rib deformity Acquired deformity of chest and rib Need for RSV vaccination Need for prophylactic vaccination and inoculation against respiratory syncytial virus documented in this encounter Care Teams Acid Cutter Relationship Specialty Start Date End Date Snow Aguayo DO [address] [place] [address] PCP - General Family Medicine 05/26/24 documented as of this encounter
--- OUTSIDE RECORDS SUMMARY | 2024-08-31 16:30 | External Medical Summary | Summary of Care ---
Author Name Unknown Organization [facility] Address [address] [facility] [address] Phone [phone] Care Team Providers Care Dispatch Manager Name Role Phone Dede Snow Tristan DO Primary Care Provider + [phone] Reason for Visit * Reason Onset Date Comments Adult Annual Wellness Visit, Initial Visit Adult Annual Wellness Visit, Initial Visit 05/27 Encounter Details Date Type Department Care Team (Late st Contact Info) Description 05/27/2024 10:00 AM EDT Nurse Only Ancillary [facility] [address] [place] [address] College, Nurse Annual Wellness Visit [address] [address] Adult Annual Wellness Visit, Initial Visit... Allergies No known active allergiesdocumented as of this encounter (statuses as of 05/27/2024) Medications Medication Sig Dispensed Refills Start Date [...] 43 % Oral Powder (Psyllium) Take by mouth. Act malcolm Lisinopril-hydroCHLOR Othiazide 20-12.5 MG Oral TabletIndications:Ess ential hypertension with goal blood pressure less than 140/90 Take 1 Tablet by mouth in the morning. 100 Tablet 1 04/09/2024 Active documented as of this encounter (statuses as of 05/27/2024) Active Problems Problem Noted Date Diagnosed Date Aortic dilatation 01/09/2024 History of TIA (transient ischemic attack) 01/09 Essential hypertension with goal blood pressure less than 140/90 01/08/2024 History of prostate cancer 01/08/2024 GERD (gastroesophageal reflux disease) 4 documented as of this encounter (statuses as of 05/27/2024) Immunizations Name Administration Dates Next Due COVID-19 mRNA, LNP-s, No Pre serve, 2-Dose Series (Moderna) 10/08/2021,02/05/2021,01/08/2021 Pneumococcal Conjugate Vacci ne, 20-valent ([id number]) 10/02/2022 Seasonal Influenza, Quadriva lent Hd (Fluzone Hd) 10/16/2023 TDAP (age 10 and older)(Boostrix) 01/15/2024 Zoster Vaccine Recombinant (Shingrix) 02/12/2023 ,09/25/2019 documented as of this encounter Social History Tobacco Use Types Packs/Day Years Used Date Smoking Tobacco: Former Cigarettes 0.3 42.7 1 11/1980 - 09/1979 Passive Smoke Exposure: Never Smokeless Tobacco: Never Tobacco Cessation:Counseling Given: Not Answered Alcohol Use Standard Drinks/Week Comments Yes 7 [...] No 01/08/2024 Does the household have a re gular source of income? (Household - for ages [...] Sign Reading Time Taken Comments Blood Pressure 122/78 05/27/2024 10:35 AM EDT Pulse 68 05/27/2024 10:35 AM EDT Temperature 35.8 C (96.5 F) 05/27/2024 10:35 AM E DT Respiratory Rate - - Oxygen Saturation 97% 05/27/2024 10:35 AM EDT Inhaled Oxygen Concentration - - Weight 101 kg (222 lb 9.6 oz) 05/27/2024 10:35 A M EDT Height 176.5 cm (5' 9.5") 05/27/2024 10:35 AM ED T Body Mass Index 32.4 05/27/2024 10:35 AM EDT documented in this encounter Patient Instructions * Patient Instructions* India Hawk RN - 05/27/2024 11:06 AM EDT Hi Mr. Raphael, As your primary care physician, I know that regular visits with my patients who have several chronic conditions can go a long way in helping you stay healthy. Many times, the clinic team and I are in touch with you and/or other care team members between office visits to adjust medications, discuss any changes in your health, and review our care plan to make sure it is still meeting your needs. I am dedicated to helping you take a more active role in your overall care. It is important that there are resources available to you, so I created a personalized plan of care with a Health Calendar for you, which is included on the next page of this letter. Below is a list that summarizes your electronic health record: Health Maintenance Due: There are no preventive care reminders to display for this patient. Current Medication List: (as of Visit date not found (in office), Visit date not found (telemedicine) ) Current Outpatient Medications Medication Sig Dispense Refill [...] mouth in the morning and 1 Tablet beforebedtime. 200 Tablet 3 Lisinopril 20 MG Oral Tablet (Prinivil) Take 1 Tablet by mouth every evening. 100 Tablet 3 Pantoprazole Sodium 40 MG Oral Tablet Delayed Release (Protonix) Take 1 Tablet by mouth in the morning. 100 Tablet 3 Metamucil 4 in 1 Fiber 43 % Oral Powder (Psyllium) Take by mouth. Lisinopril-hydroCHLOROthiazide 20-12.5 MG Oral Tablet Take 1 Tablet by mouth in the morning. 100 Tablet 1 No current facility-administered medications for this visit. Current List of Allergies: (as of Visit date not found (in office), Visit date not found (telemedicine) ) Review of patient's allergies indicates: No Known Allergies Most Recent Lab Results: Results for orders placed or performed in visit on 05/01/24 BILIRUBIN, TOTAL Result Value Ref Range Bilirubin, Total 1.3 (H) <=1.2 mg/dL Sincerely, Snow Aguayo, DO 05/27/2024 [facility] (as of Visit date not found (in office), Visit date not found (telemedicine) ) Care needs Care needs Last completed Due next COVID-19 Vaccine ( season) 2021 05/28/2024 (Originally 07/20/2023) Flu vaccine (recommended) (1) 10/16/2023 07/20/2024 Kidney Function Test 04/09/2024 04/09/2025 Urine albumin/creatinine test 04/09/2024 04/09/2027 Diphtheria, tetanus & pertussis vaccines (2 - Td or Tdap) 01/15/2024 01/15/2034 As you look over the recommended services, be sure to check with your insurance company to determine what's covered. [employer] is a great tool that helps you review your medical record online, including test results, doctor notes and your health summary. You can also schedule appointments with me and other members of your care team, request prescription refills and ask for advice related to your medical conditions at [email or web address]. documented in this encounter Progress Notes * India Hawk RN - 05/27/2024 10:37 AM EDT AD8 Dementia Screening Interview Person answering questions: patient Remember, "Yes, a change" indicates that there has been a change in the last several years caused by cognitive (thinking and memory) problems 1. Problems with judgement (eg: problems making decisions, bad financial decisions, problems with thinking). No (0) 2. Less interest in hobbies/activities. No (0) 3. Repeats the same things over and over (questions, stories, or statements). No (0) 4. Trouble learning how to use a tool, appliance, or gadget (eg: VCR, computer, microwave, remote control). No (0) 5. Forgets correct month or year. No (0) 6. Trouble handling complicated financial affairs (eg: balancing checkbook, income taxes, paying bills). No (0) 7. Trouble remembering appointments. No (0) 8. Daily problems with thinking and/or memory. No (0) TOTAL AD8: 0 - AD8 Dementia Screening Score The final score is a sum of the number items marked "Yes, A Change". 0 - 1: Normal cognition; 2 or greater: Cognitive impairments is likely to be present - further testing required Adult Annual Wellness Visit: Roldan Raphael is a 79 year old male who presents for an Adult Annual Wellness Visit. Depression Screening: Did the patient complete the screening questionnaire for Depression? Yes Is the patient's total score for Depression 15 or greater? No, no further intervention needed, unless requested by patient. Did the patient answer positively to the suicide question? No, no further intervention needed, unless requested by patient. In general, compared to other people your age, what would you say that your health is? Excellent Ht Readings from Last 1 Encounters: 05/27/24 1.765 m (5' 9.5") Wt Readings from Last 1 Encounters: 05/27/24 101 kg (222 lb 9.6 oz) Body Mass Index: BMI Greater than 30 Body mass index is 32.4 kg/m. BP Readings from Last 1 Encounters: 05/27/24 122/78 Medical/Surgical/Family History Reviewed: Yes Past Medical History: Diagnosis Date GERD (gastroesophageal reflux disease) History of prostate cancer Hypertension goal BP (blood pressure) < 140/90 Peripheral neuropathy TIA (transient ischemic attack) x2, he feels it was stress related Past Surgical History: Procedure Laterality Date CATARACT SURGERY[place] [address] - REMOVE TONSILS INFORMATION prostate radiation INFORMATION bilateral knee replacements INFORMATION cut thumb off with a saw, does well Family History Problem Relation Name Age of Onset Other (Other) Mother Occipital glioma Diabetes Father Hypertension Brother Diabetes Brother Has patient ever had cancer? History of cancer, type: prostate and location: prostate Social History Tobacco Use Smoking status: Former Current packs/day: 0.25 Average packs/day: 0.3 packs/day for 42.7 years (10.7 ttl pk-yrs) Types: Cigarettes Start date: 09/1981 Quit date: 09/1979 Passive exposure: Never Smokeless tobacco: Never Substance Use Topics Alcohol use: Yes Alcohol/week: 7.0 standard drinks of alcohol Types: 7 1.5 oz of liquor per week Comment: 1 bourbon drink a day Vaping/E-Cigarette Use Vaping/E-Cigarette Use Never User Vaping/E-Cigarette Substances Vaping/E-Cigarette Devices Tobacco/Alcohol screening completed today? Yes Hospital Care: Admissions (within the last year): Not Applicable ER within 30 days: No Does the patient have an Advance Directives/Living Will? Yes Last Physical Exam: Last physical exam: 04/09/2024 Does patient see primary provider regularly? Yes Does patient see other providers? Yes, Specialist Patient Care Team updated? Yes Review of patient's allergies indicates: No Known Allergies Immunization History Administered Date(s) Administered COVID-19 mRNA, LNP-s, No Preserve, 2-Dose Series (Moderna) 01/08/2021, 02/05/2021, 10/08/2021 Pneumococcal Conjugate Vaccine, 20-valent ([id number]) 10/02/2022 Seasonal Influenza, Quadrivalent Hd (Fluzone Hd) 10/16/2023 TDAP (age 10 and older)(Boostrix) 01/15/2024 Zoster Vaccine Recombinant (Shingrix) 09/25/2019, 02/12/2023 Current Outpatient Medications Medication Sig Dispense Refill [...] 43 % Oral Powder (Psyllium) Take by mouth. Lisinopril-hydroCHLOROthiazide 20-12.5 MG Oral Tablet Take 1 Tablet by mouth in the morning. 100 Tablet 1 No current facility-administered medications for this visit. Patient Active Problem List Diagnosis Essential hypertension with goal blood pressure less than 140/90 History of prostate cancer GERD (gastroesophageal reflux disease) Aortic dilatation (HCC) History of TIA (transient ischemic attack) Medication Compliance: Patient is able to obtain all of his medications? Yes Patient takes medications as prescribed? Yes Patient manages own medications: Yes Patient uses a pill box? Yes, refill(s) completed by self Dental Exam: Yes: Every 6 Months Eye Screening: Yes: Every year Are you having trouble with hearing? Yes Do you use an assistive device to help your hearing? Yes Exercise Screening: exercises 1-2 times per week Nutrition Assessment: Eats a balanced diet and Eats three meals a day Pain Screening: Are you having any pain? No Sleep Screening Tool 'STOP': Do you snore? No Do you feel fatigued during the day? No Do you wake up feeling like you haven't slept? No Have you been told you stop breathing at night? No Do you gasp for air or choke while sleeping? No Have you been told you have Sleep Apnea? No Do you have high blood pressure or are on medication(s) to control high blood pressure? Yes SCORE: If you check YES to two or more questions, make a referral for Obstructive Sleep Apnea Patient and Caregiver Support System: Patient lives with a spouse Means of Transportation: Drives. Concerns identified are: neuropathy in feet Patient lives in Two Story - How many stairs: 16 steps-has hand rail Community Resources: Not Applicable Functional Status and ADL Skills: Has patient ever had an amputation? No Functional Assessment: 90- Able to carry on normal activity, minor symptoms of disease Ambulation: Patient ambulates without assistive device. Independent Dressing: Gets clothes and dresses without any assistance: Independent Able to move freely in chair or bed including turning over: Independent Repositioning (bed or chair): Not applicable Transfers: Independent Toileting: Goes to bathroom, uses toilet, arranges clothes and returns without any assistance: Independent Toileting: continent of bowel and incontinent of bladder-some bladder leakage Feeding: Self Bathing: Self; shower inside tub, rubber mat in tub, steps out onto a mat/rug Requires none assistance with ADLs. Instrumental ADL's: Shopping: Independent Housekeeping: Independent Handling Finances: Independent DME Vendor Name: Not Applicable Fall Risk Assessment: Can the patient demonstrate that he can stand from a sitting position? Yes Has the patient had a fall within the last 6 months? Yes Does the patient have a problem with his gait or balance? Yes Does the patient take 4 or more prescription medicines? Yes Does the patient use sedatives or narcotics? No Fall Risk Factors Present: History of falls within the past 6 months Yes Uses more than 4 medications Balance or gait disturbances Older than age 70 Mwd-Tc-tye-Go Test: Time began at 10;00. Patient stood from sitting position and walked approximately 10 feet, returnedand sat down. Total time for xke-qw-qkm-go test was 7.48 seconds. Jlk-Ef-oym-Go Test completed? Yes Gender Specific Preventative Plan: Health Maintenance Topic Date Due COVID-19 Vaccine (2022- season) 2024 (Originally 07/20/2023) Influenza Vaccine (FLU shot) (1) 07/20/2024 GFR 04/09/2025 Depression Screening 05/27/2025 Albumin/Creatinine Ratio 04/09/2027 DTaP,Tdap,and Td Vaccines (2 - Td or Tdap) 01/15/2034 Zoster Vaccines Completed Pneumococcal Vaccine: 65+ Years Completed Hepatitis B Vaccine Aged Out MENINGOCOCCAL (MENACTRA/MENVEO) Aged Out HPV (Gardasil) Vaccine Aged Out Follow Up/ Referrals/Handouts: No further action needed Routine general medical examination at a health care facility (Primary) Discussed bringing in a copy of his living will to have scanned into his chart. Pt states he has some balance issues-pt agreeable to a balance evaluation with Donna. Pt did have a fall states was working in he garage and foot got tangled in an extension cord-no injury. Pt hashistory of peripheral neuropathy Patient has been verbally educated on the need or importance of Immunizations: covid and has declined topic(s). Pt will consider in future but declines today India Hawk RN documented in this encounter Miscellaneous Notes * Pt Handout (on AVS) - India Hawk RN - 05/27/2024 10:51 AM EDT Images from the original note were not included. [id number] Preventing Falls: Making Changes in Your Living Space Is your living space filled with hazards that could cause you to fall? Changes can make you safer. They could even save your life. Take a careful look around your home. Change what you can on your own. Hire someone or ask friends or family to help with harder tasks. Be sure to add a nonslip mat to the inside of your shower or bathtub. Always keep a nightlight on. Keep a clear path from your bed to the bathroom. Move items from higher shelves to lower ones. Remove hazards Remove things that can trip you, like throw rugs, boxes, piles of paper, or cords. Nail down rugs or carpeting if you don't want to remove them. Use slip- resistant backing. Don't store items on stairs. Keep walkways clear. Clean up spills right away. Replace glass tables with wooden ones. They're safer if you fall. Add safety devices Add handrails to both sides of stairs. Buy a raised toilet seat. Add grab bars near the toilet and in the shower. Get grabbers to help you reach things and avoid climbing. Improve lighting Add nightlights to halls, bedrooms, and bathrooms. Put light switches at the top and bottom of stairs. Be sure each room and flight of stairs has proper lighting. Use shades or curtains to cut glare from windows. Put flashlights in each room. Replace burned-out bulbs. Get glowing light switches for room entrances. Take other precautions Use nonskid floor wax. Buy a nonslip mat and a liquid soap dispenser for the shower. Put most-used items within easy reach. Add bright paint or tape on the top front edge of steps. Save big jobs, such as moving furniture or other heavy objects, for family or friends. Get professional help installing grab bars. They can be unsafe if not installed the right way. Fix riskier rooms first Don't tackle everything at once. Focus on one room at a time. The bathroom is a common spot for falls, so you may want to start there. Or start with a room you spend lots of time in, such as your bedroom. Make only a few changes at once. This will give you time to adjust to them. Outside safety You might arrange for these changes yourself, or you might need to talk to your building energy consultant or[employer] association about them. Have loose boards on porches or damaged stairs repaired. Have rough edges, holes, or large cracks in sidewalks or driveways repaired. Remove hazards that could trip you, such as hoses or merari. Use high-wattage light bulbs (100 sanon or greater) near outside doors and stairs. Add handrails to outside stairs. Have them extend beyond the bottom step. Get help in winter weather with ice or snow removal. Last Reviewed Date: 10/19/202219990388-5566 [employer]. All rights reserved. This information is not intended as a substitute for professional medical care. Always follow your healthcare professional's instructions. * Pt Handout (on AVS) - India Hawk RN - 05/27/2024 10:51 AM EDT [id number] Fall Prevention Falls often take place due to slipping, tripping, or losing your balance. Millions of people fall every year and injure themselves. Among older adults in the [place] falls are the most common cause of traumatic brain injuries. Every 20 minutes, an older adult dies from a fall. Here are ways to reduceyour risk of falling again: Think about your fall. Was there anything that caused your fall that can be fixed, removed, or replaced? Make your home safe by keeping walkways clear of objects you may trip over, such as electrical cords. Use nonslip pads under rugs. Don't use area rugs or small throw rugs. Use nonslip mats in bathtubs and showers. Hang grab rails by the toilet and inside and outside the shower. Install handrails and lights on staircases. The handrails should be on both sides of the stairs. Use night lights. Don't walk in poorly lit areas. Don't stand on chairs or wobbly ladders. Use care when reaching overhead or looking up. This position can cause a loss of balance. Be sure your shoes fit well, are in good condition, and have nonslip bottoms. Wear shoes both inside and outside of your home. Don't go barefoot or wear slippers. Be cautious when going up and down stairs, curbs, and when walking on uneven sidewalks. If your balance is poor, consider using a cane or walker. Talk with your healthcare provider about having a balance assessment. If your fall was related to alcohol use, stop or limit alcohol intake. Ask your provider for help if you think you may overuse alcohol and can't stop. If your fall was related to use of sleeping medicines, talk with your provider about this. You may need to reduce your dosage at bedtime if you wake up during the night to go to the bathroom. To reduce the need for nighttime bathroom trips: o Don't drink fluids for several hours before going to bed o Empty your bladder before going to bed o Men can keep a urinal at the bedside Stay as active as you can. Balance, flexibility, strength, and endurance all come from exercise.They all play a role in preventing falls. Ask your provider which types of activity are right for you. Try to do some type of exercise every day. Get your eyes checked once a year or more often if your vision changes If you have pets, know where they are before you stand up or walk so you don't trip over them. Go over all your medicines with a pharmacist or other provider. This is to see if any of them could make you more likely to fall. Have this type of medicine review at least once every year. If your provider advises a new medicine, ask if the side effects will affect your balance. Don't move quickly from one position to another. For instance, don't stand up fast from sitting.This can cause dizziness and may lead to a fall. Sit down when putting on pants, socks, and shoes. This will make you less likely to lose your balance and fall. Always let your provider know if you have fallen since your last visit. Contact your provider right away if you're having balance problems or falling more often. Last Reviewed Date: 11/19/202119992384-1708 [employer]. All rights reserved. This information is not intended as a substitute for professional medical care. Always follow your healthcare professional's instructions. documented in this encounter Plan of Treatment Upcoming Encounters Date Type Department Care Team (Late st Contact Info) Description 08/04/2024 10:00 AM EDT Office Visit Cardiology, [facility] [address] [facility] [place] [address] En Carpio, DO [address] [facility] [place] [address] 08/14/2024 11:20 AM EDT Office Visit Family Practice [address] [place] [address] [address] [place] [address] Snow Aguayo, DO [address] [facility] [place] [address] 09/02/2024 11:00 AM EDT Office Visit Urology, [facility] [address] [facility] [place] [address] Teddy Steinberg MD [address] [place] [id number] Health Maintenance Due Date Last Done Comments COVID-19 Vaccine (4 - 2022-2 4 season) 2024 10/08/2021, 02/05/2021, 01/08/2021 Postponed from 07/20/2023 (Patient Declined After Education) Influenza Vaccine (FLU shot) (#1) 2024 10/16/2023 GFR 04/09/2025 04/09/2024, 02/27/2019, 02/27/2019 Depression Screening 05/27/2025 05/27/2024, 04/09/2024 Albumin/Creatinine Ratio 04/09/2027 04/09/2024 DTaP,Tdap,and Td Vaccines (2 - Td or Tdap) 01/15/2034 01/15/2024 Pneumococcal Vaccine: 65+ Years [...] as of this encounter Visit Diagnoses Diagnosis Routine general medical examination at a health care facility- Primary documented in this encounter Care Teams Dispatch Manager Relationship Specialty Start Date End Date Snow Aguayo DO [address] [place] [address] PCP - General Family Medicine 05/26/24 documented as of this encounter
--- OUTSIDE RECORDS SUMMARY | 2024-08-31 16:30 | External Medical Summary ---
Author Name Unknown Address Unknown Organization [id number]:[facility] [place] - [address] [facility] [address] Laboratory Report Ordering Provider Test Date Status BOOGIE GUEVARASAIDAFIOR 04/09/2024 08:53:52 Final Observation Date Value Abnormality Reference (Units ) Status BUN 04/09/2024 08:53:52 18 6-20 (mg/dL) Final Creatinine 04/09/2024 08:53:52 1.1 0.6-1.2 (mg/dL) Final Glomerular filtration rate/1.73 sq M.predicted [Volume Rate/Area] in Serum, Plasma or Blood by Creatinine-based formula (CKD-EPI) 04/09/2024 08:53:52 71 >=60 (mL/min) Final eGFR is calculated based on the CKD-EPI 2020 equation Sodium 04/09/2024 08:53:52 138 135-146 (m mol/L) Final Potassium 04/09/2024 08:53:52 4.4 3.5-5.1 (m mol/L) Final Cl 04/09/2024 08:53:52 103 98-107 (mm ol/L) Final CO2 04/09/2024 08:53:52 26 22-32 (mmo l/L) Final Anion gap 04/09/2024 08:53:52 9 7-15 (mmol /L) Final Glucose 04/09/2024 08:53:52 75 70-120 (mg /dL) Final Albumin 04/09/2024 08:53:52 4.3 3.8-5.0 (g /dL) Final AST (Aspartate aminotransferase) 04/09/2024 08:53:52 32 10-50 (U/L) Fin al Alk Phos 04/09/2024 08:53:52 89 35-130 (U/ L) Final Bilirubin, Total 04/09/2024 08:53:52 1.4 Above high no rmal <=1.2 (mg/dL) Final Calcium 04/09/2024 08:53:52 9.5 8.4-10.2 ( mg/dL) Final Protein 04/09/2024 08:53:52 6.7 6.0-8.3 (g /dL) Final ALT (Alanine aminotransferase) 04/09/2024 08:53:52 25 10-50 (U/L) Bang morton Performing Location [facility] [place] - [facility] [address] [facility] [address]
--- OUTSIDE RECORDS SUMMARY | 2024-08-31 16:30 | External Medical Summary ---
Author Name Unknown Address Unknown Organization [id number]:[facility] [address] [place] [address] Laboratory Report Ordering Provider Test Date Status AMBER GUEVARA 04/09/2024 08:53:52 Final Observation Date Value Abnormality Reference (Units ) Status PSA 04/09/2024 08:53:52 0.06 <4.10 (ng/ mL) Final Performing Location [facility] - [address] [place] [address]
--- OUTSIDE RECORDS SUMMARY | 2024-08-31 16:30 | External Medical Summary ---
Author Name Unknown Address Unknown Organization [id number]:[facility] - [address] [place] [address] Laboratory Report Ordering Provider Test Date Status BOOGIE GUEVARASAIDAFIOR 04/09/2024 09:00:59 Final Normal: <30 mg/g creatinine< br/>High: 30-300 mg/g creatinine
Very High: >300 mg/g creatinine
Nephrotic: >2200 mg/g creatinine Observation Date Value Abnormality Reference (Units ) Status Albumin, Urine 04/09/2024 09:00:59 2.00 (mg/dL) Final Creatinine, Urine 04/09/2024 09:00:59 113 (mg/dL) Final Albumin/Creatinine [Mass Ratio] in Urine 04/09/2024 09:00:59 18 <30 (mg/g Creat) Final Performing Location [facility] - [address] [place] [address]
--- OUTSIDE RECORDS SUMMARY | 2024-08-31 16:30 | External Medical Summary | Summary of Care ---
Author Name Unknown Organization [facility] Address [address] [place] [address] Phone [phone] Care Team Providers Care Associate Doctor Name Role Phone Snow Aguayo DO Primary Care Provider [phone] Reason for Visit * Reason Onset Date Comments Advice 01/09/2024 Encounter Details Date Type Department Care Team (Late st Contact Info) Description 01/09/2024 Telephone Family Practice [address], [place] [address] [place] [address] Snow Aguayo DO [address] [place] [address] Advice Allergies No known active allergiesdocumented as of this encounter (statuses as of 04/09/2024) Medications Medication Sig Dispensed Refills Start Date End Date Status Aspirin 81 MG Oral Tablet Delayed Release (Aspirin 81) Take 1 Tablet by mouth every evening. Active documented as of this encounter (statuses as of 04/09/2024) Active Problems Problem Noted Date Diagnosed Date Aortic dilatation 01/09/2024 History of TIA (transient ischemic attack) 01/09 Essential hypertension with goal blood pressure less than 140/90 01/08/2024 History of prostate cancer 01/08/2024 GERD (gastroesophageal reflux disease) 4 documented as of this encounter (statuses as of 04/09/2024) Immunizations Name Administration Dates Next Due COVID-19 mRNA, LNP-s, No Pre serve, 2-Dose Series (Moderna) 10/08/2021 Pneumococcal Conjugate Vaccine, 20-valent (Prevn ar20) 10/02/2022 Seasonal Influenza, Quadrivalent Hd (Fluzone Hd) 10/16/2023 Zoster Vaccine Recombinant (Shingrix) 02/12/2023 ,09/25/2019 documented as of this encounter Social History Tobacco Use Types Packs/Day Years Used Date Smoking Tobacco: Former Cigarettes 0.3 42.6 1 11/1980 - 09/1979 Smokeless Tobacco: Never Alcohol Use Standard Drinks/Week Comments Yes 7 (1 standard drink = 0.6 oz pur e alcohol) 1 bourbon drink a day PHQ-2 Answer Date Recorded PHQ Adult Total Score 0 04/09/2024 Hunger Vital Sign Answer Date Recorded Within the past 12 months, y ou worried that your food would run out before you got the money to buy more. Never true 01/08/20 24 Within the past 12 months, t he food you bought just didn't last and you didn't have money to get more. Never true 01/08/2024 Sex and Gender Information Value Date Recorded Sex Assigned at Not on file Gender Identity Not on file Sexual Orientation Not on file Job Start Date Occupation Industry Not on file Not on file Not on file documented as of this encounter Miscellaneous Notes * Telephone Encounter - Isabel Rich RPh - 01/09/2024 2:29 PM EST Provided patient with cost of mail order versus retail at visit 01/08. $47 locally for 30 ds, $117.50 for 90 ds locally, $70.50 at mail order for 100 ds. * Telephone Encounter - Snow Aguayo DO - 01/09/2024 2:08 PM EST Isabel, can you please rene out the myrbetriq at local pharmacy vs mail order? documented in this encounter Plan of Treatment Upcoming Encounters Date Type Department Care Team (Late st Contact Info) Description 08/14/2024 11:20 AM EDT Office Visit Family Practice [address], [place] 293 [facility] [place] [address] Snow Aguayo DO 293 [place] [address] 09/02/2024 11:00 AM EDT Office Visit Urology, [facility] [address] [facility] [place] [address] Teddy Steinberg MD [address] [facility] [place] [place] [place] [address] Health Maintenance Due Date Last Done Comments GFR 02/28/2020 04/09/2024, 02/27/2019, 02/27/2019 COVID-19 Vaccine (2 - 2022-2 4 season) 2024 10/08/2021 Postponed from 07/20 (Patient Declined After Education) Depression Screening 04/09/2025 04/09/2024 Albumin/Creatinine Ratio 04/09/2027 04/09/2024 DTaP,Tdap,and Td Vaccines (2 - Td or Tdap) 01/15/2034 01/15/2024 Pneumococcal Vaccine: 65+ Years Completed 10/02/2022 Zoster Vaccines Completed 02/12/2023, 09/25/2019 Influenza Vaccine (FLU shot) Completed 10/16/2023 GARDASIL-HPV IMMUNIZATION SERIES Aged Out No longer eligible b ased on patient's age to complete this topic Hepatitis B Aged Out No longer eligi ble based on patient's age to complete this topic MENINGOCOCCAL (MENACTRA/MENVEO) Aged Out No longer eligible b ased on patient's age to complete this topic documented as of this encounter Medical Devices Not on filedocumented as of this encounter Care Teams Associate Doctor Relationship Specialty Start Date End Date Snow Aguayo DO [address] [place] [address] PCP - General Family Medicine 01/09/24 documented as of this encounter
--- OUTSIDE RECORDS SUMMARY | 2024-08-31 16:30 | External Medical Summary ---
Author Name Unknown Address Unknown Organization K01:[facility] [place] [address] [place] [address] Laboratory Report Ordering Provider Test Date Status AMBER GUEVARA 05/01/2024 12:31:11 Final Observation Date Value Abnormality Reference (Units ) Status Bilirubin, Total 05/01/2024 12:31:11 1.3 Above high no rmal <=1.2 (mg/dL) Final Performing Location [facility] - [address] [place] [address]
--- OUTSIDE RECORDS SUMMARY | 2024-08-31 16:30 | External Medical Summary | Summary of Care ---
Author Name Unknown Organization [facility] Address [address] [facility] [address] Phone [phone] Care Team Providers Care Quality Assurance Assistant Name Role Phone Snow Aguayo DO Primary Care Provider [phone] Reason for Visit * Reason Comments Follow Up Encounter Details Date Type Department Care Team (Late st Contact Info) Description 04/09/2024 8:00 AM EDT Office Visit Family Practice [address], [place] [address] [place] [phone] Snow Aguayo DO 293 [place] [address] Essential hypertension with goal blood pressure less than 140/90*; History of TIA (transient ischemic attack); LBBB (left bundle branch block); Aortic dilatation (HCC); History of prostate cancer Allergies No known active allergiesdocumented as of this encounter (statuses as of 04/09/2024) Medications Medication Sig Dispensed Refills Start Date End Date Status Aspirin 81 MG Oral Tablet Delayed Release (Aspirin 81) Take 1 Tablet by mouth every evening. Active Myrbetriq 50 MG Oral Tablet Extended Release 24 Hour (Mirabegron ER)Indications:His tory of prostate cancer Take 1 Tablet by mouth daily. 100 Tablet 3 01/15/2024 Active amLODIPine Besylate 5 MG Oral Tablet (Norvasc)Indicatio ns:Hypertension goal BP (blood pressure) < 140/90 Take 1 Tablet by mouth in the morning. 100 Tablet 3 01/17/2024 Active Clopidogrel Bisulfate 75 MG Oral Tablet (pLAVix)Indication s:History of TIA (transient ischemic attack) Take 1 Tablet by mouth in the morning. 100 Tablet 3 01/17/2024 Active Doxycycline Hyclate 20 MG Oral Tablet Take 1 Tablet by mouth in the morning and 1 Tablet before bedtime. 200 Tablet 3 01/17/2024 Active Lisinopril 20 MG Oral Tablet (Prinivil)Indicati ons:Hypertension goal BP (blood pressure) < 140/90 Take 1 Tablet by mouth every evening. 100 Tablet 3 01/17/2024 Active Pantoprazole Sodium 40 MG Oral Tablet Delayed Release (Protonix)Indicati ons:Gastroesophage al reflux disease, unspecified whether esophagitis present Take 1 Tablet by mouth in the morning. 100 Tablet 3 01/17/2024 Active Metamucil 4 in 1 Fiber 43 % Oral Powder (Psyllium) Take by mouth. Active Lisinopril-hydroCH LOROthiazide 20-12.5 MG Oral TabletIndications: Essential hypertension with goal blood pressure less than 140/90 Take 1 Tablet by mouth in the morning. 100 Tablet 1 04/09/2024 Active Lisinopril-hydroCH LOROthiazide 20-12.5 MG Oral TabletIndications: Hypertension goal BP (blood pressure) < 140/90 Take 1 Tablet by mouth in the morning. 90 Tablet 01/17/2024 04/09/2024 Discontinued (Refill) documented as of this encounter (statuses as [...] 1 11/1980 - 09/1979 Smokeless Tobacco: Never Tobacco Cessation:Counseling Given: Yes Alcohol Use Standard Drinks/Week Comments Yes 7 (1 standard drink = 0.6 oz pur e alcohol) 1 bourbon drink a day Hunger Vital Sign Answer Date Recorded Within [...] Sign Reading Time Taken Comments Blood Pressure 118/74 04/09/2024 8:07 AM EDT Pulse 69 04/09/2024 8:07 AM EDT Temperature 36.2 C (97.2 F) 04/09/2024 8:07 AM ED T Respiratory Rate 12 04/09/2024 8:07 AM EDT Oxygen Saturation 98% 04/09/2024 8:07 AM EDT Inhaled Oxygen Concentration - - Weight 101.2 kg (223 lb) 04/09/2024 8:07 AM EDT Height 175.3 cm (5' 9") 04/09/2024 8:07 AM EDT Body Mass Index 32.93 04/09/2024 8:07 AM EDT documented in this encounter Patient Instructions * Patient Instructions* Snow Aguayo DO - 04/09/2024 8:25 AM EDT - rAmani Curran Sheldon Henry documented in this encounter Progress Notes * Snow Aguayo DO - 04/09/2024 8:05 AM EDT SUBJECTIVE: Chief Complaint Patient presents with Follow Up HPI: Roldan Raphael is a 79 year old male who presents today for regular return. Pt would like to see a onion topper here. He has not yet scheduled. He notes that he did f/u with his onion topper in the last week or so. Pt feels that the myrbetriq is working well enough. He notes that he typically has enough warning. He does occasionally have some incontinence if he bends or lifts as this can cause some issue for him. He notes that he really cannot delay getting to a bathroom when needed. PHM: Patient Active Problem List Diagnosis Hypertension goal BP (blood pressure) < 140/90 History of prostate cancer GERD (gastroesophageal [...] by mouth every evening. 100 Tablet 3 Lisinopril-hydroCHLOROthiazide 20-12.5 MG Oral Tablet Take 1 Tablet by mouth in the morning. 90 Tablet 0 Pantoprazole Sodium 40 MG Oral Tablet Delayed Release (Protonix) Take 1 Tablet by mouth in the morning. 100 Tablet 3 Metamucil 4 in 1 Fiber 43 % Oral Powder (Psyllium) Take by mouth. No current facility-administered medications for this visit. Past Medical History: Diagnosis Date GERD (gastroesophageal reflux disease) History of prostate cancer Hypertension goal BP (blood pressure) < 140/90 TIA (transient ischemic attack) x2, he feels it was stress related Past Surgical History: [place] [address] - REMOVE TONSILS INFORMATION prostate radiation INFORMATION [...] packs/day: 0.25 Average packs/day: 0.3 packs/day for 42.6 years (10.6 ttl pk-yrs) Types: Cigarettes Start date: 09/1981 Quit date: 09/1979 Smokeless tobacco: Never Substance Use Topics Alcohol use: Yes Alcohol/week: 7.0 standard drinks of alcohol Types: 7 1.5 oz of liquor per week Comment: 1 bourbon drink a day Vaping/E-Cigarette Use Vaping/E-Cigarette Substances Vaping/E-Cigarette Devices REVIEW OF SYSTEMS: Review of Systems Constitutional: Negative for chills, fatigue, fever and unexpected weight change. Respiratory: Negative for cough, chest tightness, shortness of breath and wheezing. Cardiovascular: Negative for chest pain, palpitations and leg swelling. Gastrointestinal: Negative for abdominal pain, constipation, diarrhea, nausea and vomiting. Genitourinary: As per HPI Musculoskeletal: Negative for arthralgias, gait problem and joint swelling. Skin: Negative for color change, pallor and rash. OBJECTIVE: BP 118/74 (BP Site: Left Arm, BP Position: Sitting, BP Cuff Size: Regular) | Pulse 69 | Temp 36.2 C (97.2 F) (Tympanic) | Resp 12 | Ht 1.753 m (5' 9") | Wt 101.2 kg (223 lb) | SpO2 98% | BMI 32.93 kg/m | BSA 2.22 m PHYSICAL EXAM: Physical Exam Constitutional: General: [...] tenderness. There is no guarding. Musculoskeletal: General: No tenderness or deformity. Normal range of motion. Skin: General: Skin is warm and dry. Coloration: Skin is not pale. Findings: No erythema or rash. Neurological: Mental Status: He is alert and oriented to person, place, and time. ASSESSMENT/PLAN: (I10) Essential hypertension with goal blood pressure less than 140/90 (primary encounter diagnosis) Plan: EKG, ALBUMIN / CREATININE RATIO, URINE, COMPREHENSIVE METABOLIC PANEL, Lisinopril-hydroCHLOROthiazide 20-12.5 MG Oral Tablet EKG with bifascicular block. Will get old EKG from cardiology. Will complete lab studies. He will remain on current regimen. (Z86.73) History of TIA (transient ischemic attack) Plan: No changes. To remain on current regimen. (I44.7) LBBB (left bundle branch block) Plan: CBC WITH WBC DIFFERENTIAL, LIPID PANEL WITH DIRECT LDL IF TG IS HIGH As above. Will await records. (I77.819) Aortic dilatation (HCC) Plan: CBC WITH WBC DIFFERENTIAL, LIPID PANEL WITH DIRECT LDL IF TG IS HIGH Pt follows with a onion topper in [place]. Has not yet established here. (Z85.46) History of prostate cancer Plan: PSA Pt will complete PSA. Follow-up: 3 months Total time today including reviewing chart before the visit, pertinent labs, imaging reports, face to face time, and documentation time was 43 minutes. Snow Aguayo DO * Aneta Palmer LPN - 04/09/2024 8:04 AM EDT EKG done today. documented in this encounter Nursing Notes * Aneta Palmer LPN - 04/09/2024 8:01 AM EDT Patient here for routine follow up visit. Reports ongoing peripheral neuropathy - no worse. Has notfound local onion topper - still traveling to see previous onion topper. Needs to find local dentist. Does have Urology appt coming up in August with Dr. Steinberg. Declined COVID vaccine today. documented in this encounter Plan of Treatment Upcoming Encounters Date Type Department Care Team (Late st Contact Info) Description 07/14/2024 8:00 AM EDT Office Visit Family Practice [address] [facility], [place] 293 [place] [address] Snwo Aguayo DO 293 [facility] [place] [address] 09/02/2024 11:00 AM EDT Office Visit Urology, [facility] [address] [facility] [place] [address] Teddy Steinberg MD 27 [facility] [address] [place] [place] [address] Pending Results Name Type Priority Associated Diagnoses Date /Time ALBUMIN / CREATININE RATIO, URINE Lab Routine Essential hypertension with goal blood pressure less than 140/90 04/09/2024 9:00 AM EDT CBC WITH WBC DIFFERENTIAL Lab Routine LBBB (left bundle branch block) Aortic dilatation (HCC) 04/09/2024 8:53 AM EDT COMPREHENSIVE METABOLIC PANEL Lab Routine Essential hypertension with goal blood pressure less than 140/90 04/09/2024 8:53 AM EDT LIPID PANEL WITH DIRECT LDL IF TG IS HIGH Lab Routine LBBB (left bundle branch block) Aortic dilatation (HCC) 04/09/2024 8:53 AM EDT PSA Lab Routine History of prostate cancer 04/09/2024 8:53 AM EDT CBC Lab Routine LBBB (left bundle branch block) Aortic dilatation (HCC) 04/09/2024 8:53 AM EDT DIFFERENTIAL, AUTOMATED Lab Routine LBBB (left bundle branch block) Aortic dilatation (HCC) 04/09/2024 8:53 AM EDT Scheduled Orders Name Type Priority Associated Diagnoses Orde r Schedule EKG EKG Routine Essential hypertension with goal blood pressure less than 140/90 Ordered: 04/09/2024 ALBUMIN / CREATININE RATIO, URINE Lab Routine Essential hypertension with goal blood pressure less than 140/90 Expected: 04/09/2024, Expires: 04/09/2025 CBC WITH WBC DIFFERENTIAL Lab Routine LBBB (left bundle branch block) Aortic dilatation (HCC) Expected: 04/09/2024 (Approximate), Expires: 04/09/2025 COMPREHENSIVE METABOLIC PANEL Lab Routine Essential hypertension with goal blood pressure less than 140/90 Expected: 04/09/2024 (Approximate), Expires: 04/09/2025 LIPID PANEL WITH DIRECT LDL IF TG IS HIGH Lab Routine LBBB (left bundle branch block) Aortic dilatation (HCC) Expected: 04/09/2024, Expires: 04/09/2025 PSA Lab Routine History of prostate cancer Expected: 04/09/2024 (Approximate), Expires: 04/09/2025 Health Maintenance Due Date Last Done Comments Albumin/Creatinine Ratio 1961 GFR 02/28/2020 02/27/2019, 02/27/2019 COVID-19 Vaccine (2 - 2022-2 4 season) 2024 10/08/2021 Postponed from 07/20 (Patient Declined After Education) Depression Screening 04/09/2025 04/09/2024 DTaP,Tdap,and Td Vaccines (2 - Td [...] as of this encounter Visit Diagnoses Diagnosis Essential hypertension with goal blood pressure less than 140/90- Primary History of TIA (transient ischemic attack) Transient ischemic attack (TIA), and cerebral infarction without residual deficits LBBB (left bundle branch block) Other left bundle branch block Aortic dilatation (HCC) Aortic ectasia, unspecified site History of prostate cancer Personal history of malignant neoplasm of prostate documented in this encounter Care Teams Quality Assurance Assistant Relationship Specialty Start Date End Date Snow Aguayo DO [address] [place] [address] PCP - General Family Medicine 01/09/24 documented as of this encounter
--- OUTSIDE RECORDS SUMMARY | 2024-08-31 16:30 | External Medical Summary | Summary of Care ---
Author Name Unknown Organization [facility] Address [address] [facility] [place] [address] Phone [phone] Care Team Providers Care Route Carrier Name Role Phone Snow Aguayo DO Primary Care Provider + [phone] Reason for Visit * Reason Onset Date Comments Appointment 05/27/2024 balance evaluati on Encounter Details Date Type Department Care Team (Late st Contact Info) Description 05/27/2024 Telephone Family Practice [address] [facility] [place] [address] [place] [phone] Snow Aguayo DO 293 [place] [address] Appointment (balance evaluation) Allergies No known active allergiesdocumented as of this encounter (statuses as of 05/29/2024) Medications Medication Sig Dispensed Refills Start Date [...] as of this encounter (statuses as of 05/29/2024) Active Problems Problem Noted Date Diagnosed Date Aortic dilatation 01/09/2024 History of TIA (transient ischemic attack) 01/09 Essential hypertension with goal blood pressure less than 140/90 01/08/2024 History of prostate cancer 01/08/2024 GERD (gastroesophageal reflux disease) documented as of this encounter (statuses as of 05/29/2024) Immunizations Name Administration Dates Next Due COVID-19 mRNA, LNP-s, No Pre serve, 2-Dose Series (Moderna) 10/08/2021,02/05/2021,01/08/2021 Pneumococcal Conjugate Vacci ne, 20-valent ([id number]) 10/02/2022 Seasonal Influenza, Quadriva lent Hd (Fluzone Hd) 10/16/2023 TDAP (age 10 and older)(Boostrix) 01/15/2024 Zoster Vaccine Recombinant (Shingrix) 02/12/2023 ,09/25/2019 documented as of this encounter Social History Tobacco Use Types Packs/Day Years Used Date Smoking Tobacco: Former Cigarettes 0.3 42.7 1 11/1980 - 09/1979 Passive Smoke Exposure: Never Smokeless Tobacco: Never Alcohol Use Standard Drinks/Week [...] encounter Miscellaneous Notes * Telephone Encounter - Trisha Luis OSA - 05/27/2024 3:24 PM EDT Please call with date and time documented in this encounter Plan of Treatment Upcoming Encounters Date Type Department Care Team (Late st Contact Info) Description 08/04/2024 10:00 AM EDT Office Visit Cardiology, [facility] 132 [place] [address] En Carpio, DO [address] [place] [address] 08/14/2024 11:20 AM EDT Office Visit Family Practice [address] [place] [address] 293 [place] [address] Snow Aguayo DO 293 [place] [address] 09/02/2024 11:00 AM EDT Office Visit Urology, [facility] [address] [place] [address] Teddy Steinberg MD [address] [phone] Health Maintenance Due Date Last Done Comments COVID-19 Vaccine (2022-2 4 season) 2024 10/08/2021, 02/05/2021, 01/08/2021 Postponed [...] filedocumented as of this encounter Care Teams Route Carrier Relationship Specialty Start Date End Date Snow Aguayo DO [address] [place] [address] PCP - General Family Medicine 05/26/24 documented as of this encounter
--- OUTSIDE RECORDS SUMMARY | 2024-08-31 16:30 | External Medical Summary | Summary of Care ---
Author Name Unknown Organization [facility] Address [address] [facility] [place] [address] Phone [phone] Care Team Providers Care Haul Truck Driver Name Role Phone GriishSnow galan Azalea SMITH Primary Care Provider + [phone] Reason for Referral * Precert (Diagnostic Medical) (Within 10 days (routine)) - Authorized Specialty Diagnoses / Procedures Referred By Contac t Referred To Contact Cardiac Studies Diagnoses Hypertensive heart disease without congestive heart failure Aortic root enlargement (HCC) Procedures ECHO, COMPLETE (2D), TRANS-THORACIC En Carpio DO [address] [place] [address] Referral ID Status Reason Start Date Expiration Date V isits Requested Visits Authorized [id number] Authorized Precert 08/04/2024 999 999 Reason for Visit * Reason Comments NEW PATIENT Previously followed by Dr. Elliott, Encounter Details Date Type Department Care Team (Late st Contact Info) Description 08/04/2024 10:00 AM EDT Office Visit Cardiology, [facility] [address] [place] [address] En Carpio DO [address] [place] [address] Hypertensive heart disease without congestive heart failure*; Carotid stenosis, non-symptomatic, right; Aortic root enlargement (HCC); Dyslipidemia, goal LDL below 100 Allergies No known active allergiesdocumented as of this encounter (statuses as of 08/04/2024) Medications Medication Sig Dispensed Refills Start Date [...] as of this encounter (statuses as of 08/04/2024) Active Problems Problem Noted Date Diagnosed Date Aortic dilatation 01/09/2024 History of TIA (transient ischemic attack) 01/09 Essential hypertension with goal blood pressure less than 140/90 01/08/2024 History of prostate cancer 01/08/2024 GERD (gastroesophageal reflux disease) 4 documented as of this encounter (statuses as of 08/04/2024) Immunizations Name Administration Dates Next Due COVID-19 mRNA, LNP-s, No Pre serve, 2-Dose Series (Moderna) 10/08/2021,02/05/2021,01/08/2021 Pneumococcal Conjugate Vacci ne, 20-valent (Hyputdp16) 10/02/2022 Seasonal Influenza, Quadriva lent Hd (Fluzone [...] Sign Reading Time Taken Comments Blood Pressure 124/80 08/04/2024 9:53 AM EDT Pulse 72 08/04/2024 9:53 AM EDT Temperature - - Respiratory Rate 16 08/04/2024 9:53 AM EDT Oxygen Saturation - - Inhaled Oxygen Concentration - - Weight 102.4 kg (225 lb 12.8 oz) 08/04/2024 9:53 AM EDT Height - - Body Mass Index 32.87 05/27/2024 10:35 AM EDT documented in this encounter Progress Notes * En Carpio, - 08/04/2024 10:10 AM EDT Cardiology Consultation Reason for consult: Hypertension Referring physician: Dr. Snow Aguayo History of Present Illness: 79 year old male relocating from [place] presents to establish care with [facility]. History of unspecified TIA status post LINQ implantation 08/2017, left ventricular hypertrophy, hypertensive heart disease, aortic root and ascending aortic enlargement, first-degree AV block, right bundle branch block, and PVCs. Activity/exercise limited by peripheral neuropathy. Denies any recent falls or injuries. Spends hisday working on home projects and woodworking. Denies orthopnea, PND, or lower extremity edema. No palpitations, lightheadedness, dizziness, syncope, or near syncope. Previously followed by zipper machine operator in [place]. ECG: Sinus rhythm, first-degree AV block, right bundle branch block with occasional PVCs. Left anterior fascicular block. Voltage criteria for left ventricular hypertrophy. Cardiac Studies: 2D echo report August 28, 2023: LVEF 55-60% Mildly dilated left ventricle. Moderate left ventricular hypertrophy. Mild left atrial dilation. Moderately dilated aortic root. Mildly dilated ascending aorta and arch. Past Medical History: Patient Active Problem List Diagnosis Essential hypertension with goal blood pressure less than 140/90 History of prostate cancer GERD (gastroesophageal reflux disease) Aortic dilatation (HCC) History of TIA (transient ischemic attack) Past Surgical History: Procedure Laterality Date CATARACT SURGERY[place] [address] - REMOVE TONSILS INFORMATION prostate radiation INFORMATION bilateral knee replacements INFORMATION cut thumb off with a saw, does well Family History: Family History Problem Relation Name Age of Onset Other (Other) Mother Occipital glioma Diabetes Father Hypertension Brother Diabetes Brother Family Status Relation Status Mo (Not Specified) Fa (Not Specified) Bro (Not Specified) Bro Alive Beau Alive Beau Alive Social History: Social History Socioeconomic History Marital status: Spouse name: Not on file Number of children: Not on file Years of education: Not on file Highest education level: Not on file Occupational History Not on file Tobacco Use Smoking status: Former Current packs/day: 0.25 Average packs/day: 0.3 packs/day for 42.9 years (10.7 ttl pk-yrs) Types: Cigarettes Start date: 09/1981 Quit date: 09/1979 Passive exposure: Never Smokeless tobacco: Never Vaping Use Vaping status: Never Used Substance and Sexual Activity Alcohol use: Yes Alcohol/week: 7.0 standard drinks of alcohol Types: 7 1.5 oz of liquor per week Comment: 1 bourbon drink a day Drug use: Never Sexual activity: Not on file Other Topics Concern Not on file Social History Narrative Not on file Social Determinants of Health Financial Resource Strain: Low Risk (01/08/2024) Financial Resource Strain Do you have any trouble paying for your medications, or do you think you might in the future? (Adult - for ages 18 years and over): No Does your family have trouble paying for medicine? (Household - for ages 0-17 years): Not on file Food Insecurity: No Food Insecurity (01/08/2024) Food Insecurity Do you need food for this week? (Adult - for ages 18 years and over): No Are you able to get enough food for your family? (Household - for ages 0-17 years): Not on file Does your family need food this week? (Household - for ages 0-17 years): Not on file Do you always have enough food for your family? (Household - for ages 0-17 years): Not on file Transportation Needs: No Transportation Needs (01/08/2024) Transportation Needs Do you have trouble getting a ride to medical visits or work? (Adult - for ages 18 years and over):Never True Does your family have a hard time getting a ride to doctors visits? (Household - for ages 0-17 years): Not on file Has lack of transportation kept you from medical appointments, meetings, work, or from getting things needed for daily living? Check all that apply. (Adult - for ages 18 years and over): Not on file Do you (or your family) have trouble finding or paying for a ride (transportation)? (Household - for ages 0-17 years): Not on file Social Connections: Socially Integrated (01/08/2024) Social Connections How often do you feel lonely or isolated from those around you? (Adult - for ages 18 years and over): Never Housing Stability: Low Risk (01/08/2024) Housing Stability Do you currently live in a longterm or have no steady place to sleep at night? (Adult - for ages 18 years and over): No Do you think you are at risk of becoming homeless? (Adult - for ages 18 years and over): No Does your family worry about paying for your home or becoming homeless? (Household - for ages 0-17 years): Not on file Are you homeless or worried that you might be in the future? (Adult - for ages 18 years and over): Not on file Are you (or your family) homeless or worried that you might be in the future? (Household - for ages0-17 years): Not on file Social History Social History Narrative Not on file ROS: All others negative other than those noted in the HPI. Review of patient's allergies indicates: No Known Allergies Current Outpatient Medications Medication Sig Dispense Refill [...] No current facility-administered medications for this visit. OBJECTIVE/PHYSICAL EXAMINATION: BP 124/80 (BP Site: Left Arm, BP Position: Sitting, BP Cuff Size: Large) | Pulse 72 | Resp 16 | Wt 102.4 kg (225 lb 12.8 oz) | BMI 32.87 kg/m | BSA 2.24 m General: NAD, AAO x3, well nourished. HEENT: Normocephalic. Atraumatic. Conjunctiva pink, no scleral icterus. No carotid bruits, the carotid upstrokes are brisk. No JVD. No HJR Heart: Regular normal S-1 and S-2 no S-3 or S-4 gallop. No murmurs or rubs appreciated. PMI is not displaced. No RV heave.Lungs: Clear bilateral without rales , rhonchi, or wheeze. Abdomen: Normal bowel sounds. Soft. Nontender. No masses or organomegaly. No abdominal bruits. Extremities: No clubbing, cyanosis, or edema.Pulses: radial=2/4, Dorsalis pedis =2/4, posterior tibial=2/4. Neuro: No focal deficits. IMPRESSION: 1. Hypertensive heart disease without evidence of congestive heart failure. - BP controlled 2. History of cryptogenic CVA/TIA 2016 -no evidence of atrial fibrillation per prior LINQ recorder implantation 2016 -chronically treated with dual antiplatelet therapy 3. Moderate right internal carotid artery stenosis - asymptomatic 4. Underlying conduction disease, right bundle branch block, left anterior fascicular block, first-degree AV block. 5. Moderate aortic root enlargement, mild ascending aortic enlargement per echocardiogram. 6. Dyslipidemia with statin intolerance RECOMMENDATIONS/PLAN: [facility] duplex carotid bilat Echo, complete (2d), trans-thoracic Consider repeat Zio monitor with any recurrent palpitations, neurologic symptoms, lightheadedness, dizziness, syncope, or near syncope. Continue current cardiac medications including lisinopril, hydrochlorothiazide, amlodipine, low-dose aspirin, and clopidogrel. Encouraged patient to remain active. Fall precautions advised. All questions answered to patient's satisfaction. Follow Up: Return in about 6 months (around 02/01/2025). En Carpio DO, [facility] Associate Cardiology - Cooper Mancilla documented in this encounter Nursing Notes * Nancy Barker CMA - 08/04/2024 10:08 AM EDT Chief Complaint Patient presents with NEW PATIENT Previously followed by Dr. Elliott, Examination Room: 11 Name: Roldan Raphael Date of : (1945). Reason for Visit: New patient Interim Hospitalization(s): none Problems/Concerns: Denies current cardiac issues or concerns. Chest Pain/SOB: denies [facility] Discussed: No My [facility] is a way you can talk to your provider online through e-mail. Would you like to sign up? I can activate it for you? ALREADY ACTIVE Patient was instructed to not get up on the exam table until directed and assisted by their provider; patient is to remain seated in the chair/ wheelchair/ exam table for fall prevention and safety reasons. Patient is aware to have assistance to step down off exam table with personnel. Patient voiced full comprehension of instructions. documented in this encounter Plan of Treatment Upcoming Encounters Date Type Department Care Team (Late st Contact Info) Description 08/14/2024 11:20 AM EDT Office Visit Family [facility] [address], [place] [address] [place] [address] Snow Aguayo DO [address] [place] [address] 09/02/2024 11:00 AM EDT Office Visit Urology, [facility] [address] [place] [address] Teddy Steinberg MD [address] [place] [address] 10/07/2024 2:30 PM EST Cardiac Studies Cardiac Studies, [facility] [address] [facility] [place] [address] 10/07/2024 3:30 PM EST Imaging Vascular Lab, [facility] [address] 2nd Floor, [place] [address] [facility] [address] [facility] [address] 02/12/2025 3:30 PM EDT [facility] [address] En Carpio DO [address] [facility] [place] [address] Scheduled Orders Name Type Priority Associated Diagnoses Orde r Schedule ECHO, COMPLETE (2D), TRANS-THORACIC Echocardiology Routine Hypertensive heart disease without congestive heart failure Aortic root enlargement (HCC) Expected: 08/04/2024 (Approximate), Expires: 09/03/2026 VASC DUPLEX CAROTID BILAT Medical Imaging Routine Carotid stenosis, non-symptomatic, right Expected: 08/11/2024, Expires: 09/03/2025 EKG EKG Routine Hypertensive heart disease without congestive heart failure Carotid stenosis, non-symptomatic, right Aortic root enlargement (HCC) Dyslipidemia, goal LDL below 100 Ordered: 08/04/2024 Health Maintenance Due Date Last Done Comments COVID-19 Vaccine (2023-2 5 season) 2024 10/08/2021, 02/05/2021, 01/08/2021 Influenza Vaccine (FLU shot) (#1) 2024 10/16/2023 GFR 04/09/2025 04/09/2024, 02/27/2019, 02/27/2019 Adult Wellness [...] as of this encounter Visit Diagnoses Diagnosis Hypertensive heart disease without congestive heart failure- Primary Unspecified hypertensive heart disease without heart failure Carotid stenosis, non-symptomatic, right Aortic root enlargement (HCC) Other specified disorders of arteries and arterioles Dyslipidemia, goal LDL below 100 Other and unspecified hyperlipidemia documented in this encounter Care Teams Haul Truck Driver Relationship Specialty Start Date End Date Snow Aguayo DO [address] [place] [address] PCP - General Family Medicine 05/26/24 documented as of this encounter"
--- OUTSIDE RECORDS SUMMARY | 2024-08-31 16:30 | External Medical Summary ---
Author Name Unknown Address Unknown Organization [id number]:[facility] [place] [address] [facility] [address] Laboratory Report Ordering Provider Test Date Status AMBER GUEVARA 04/09/2024 08:53:52 Final Observation Date Value Abnormality Reference (Units ) Status WBC, Total 04/09/2024 08:53:52 7.62 4.00-10.80 (K/uL) Final RBC 04/09/2024 08:53:52 4.87 4.50-5.25 (M/uL) Final Hemoglobin 04/09/2024 08:53:52 13.8 Below low normal 14.0-16.8 (g/dL) Final HCT 04/09/2024 08:53:52 41.7 40.0-48.4 (%) Final MCV 04/09/2024 08:53:52 85.6 82.0-99.5 (fL) Final MCH 04/09/2024 08:53:52 28.3 27.0-34.0 (pg) Final MCHC 04/09/2024 08:53:52 33.1 32.0-36.0 (g/dL) Final RDW 04/09/2024 08:53:52 15.4 11.5-15.5 (%) Final Platelets 04/09/2024 08:53:52 264 140-400 (K/uL) Final MPV 04/09/2024 08:53:52 12.4 6.6-11.1 (fL) Final Nucleated erythrocytes/100 leukocytes [Ratio] in Blood by Automated count 04/09/2024 08:53:52 0 <=0 (/100 WBCs) Final Performing Location [facility] [place] [address] [place] [address]
--- OUTSIDE RECORDS SUMMARY | 2024-08-31 16:30 | External Medical Summary | Summary of Care ---
Author Name Unknown Organization [facility] Address [address] [place] [facility] [place] [address] Phone [phone] Care Team Providers Care Book Solicitor Name Role Phone Snow Aguayo DO Primary Care Provider + [phone] Reason for Visit * Reason Onset Date Comments Test Results 04/16/202404/16 Encounter Details Date Type Department Care Team (Late st Contact Info) Description 04/16/2024 Telephone Family Practice [address], [place] [address] [place] [id number] Snow Aguayo DO [address] [place] [address] Test Results (04/16) Allergies No known active allergiesdocumented as of this encounter (statuses as of 04/16/2024) Medications Medication Sig Dispensed Refills Start Date [...] as of this encounter (statuses as of 04/16/2024) Active Problems Problem Noted Date Diagnosed Date Aortic dilatation 01/09/2024 History of TIA (transient ischemic attack) 01/09 Essential hypertension with goal blood pressure less than 140/90 01/08/2024 History of prostate cancer 01/08/2024 GERD (gastroesophageal reflux disease) documented as of this encounter (statuses as of 04/16/2024) Immunizations Name Administration Dates Next Due COVID-19 [...] encounter Miscellaneous Notes * Telephone Encounter - Aneta Palmer LPN - 04/16/2024 3:37 PM EDT Call placed to patient and relayed information from Dr. Aguayo. Pt acknowledged understanding andwill comply. No questions at this time. * Telephone Encounter - Snow Aguayo DO - 04/16/2024 3:06 PM EDT Please let pt know: His lab studies looked ok with exception of his bilirubin which was slightly up. We will repeat in 2 weeks. Order in. documented in this encounter Plan of Treatment Upcoming Encounters Date Type Department Care Team (Late st Contact Info) Description 08/14/2024 11:20 AM EDT Office Visit Family Practice [address] [facility], [place] [address] [facility] [place] [address] Snow Aguayo DO [address] [facility] [place] [address] 09/02/2024 11:00 AM EDT Office Visit Urology, [facility] [address] [facility] [place] [address] Teddy Steinberg MD [address] [facility] [address] [place] [address] Scheduled Orders Name Type Priority Associated Diagnoses Orde r Schedule BILIRUBIN, TOTAL Lab Routine Elevated bilirubin Expected: 04/30/2024 (Approximate), Expires: 04/16/2025 Health Maintenance Due Date Last Done Comments COVID-19 Vaccine (2 - 2022-2 4 season) 2023 10/08/2021 Depression Screening 04/09/2025 04/09/2024 GFR 04/09/2025 04/09/2024, 02/27/2019, 02/27/2019 Albumin/Creatinine Ratio 04/09/2027 04/09/2024 DTaP,Tdap,and Td Vaccines [...] as of this encounter Visit Diagnoses Diagnosis Elevated bilirubin- Primary Jaundice, unspecified, not of documented in this encounter Care Teams Book Solicitor Relationship Specialty Start Date End Date Snow Aguayo DO [address] [place] [address] PCP - General Family Medicine 01/09/24 documented as of this encounter
--- OUTSIDE RECORDS SUMMARY | 2024-08-31 16:30 | External Medical Summary ---
Author Name Unknown Address Unknown Organization K01[place] [place] [address] [facility] [address] Laboratory Report Ordering Provider Test Date Status BOOGIE GUEVARASAIDAFIOR 04/09/2024 08:53:52 Final Observation Date Value Abnormality Reference (Units ) Status SYNC LEUKOCYTES IN BLOOD BY AUTOMATED COUNT 04/09/2024 08:53:52 7.62 4.00-10.80 (K/uL) Final Segs 04/09/2024 08:53:52 55.3 40.0-75.0 (%) Final Lymphs % 04/09/2024 08:53:52 25.5 18.0-42.0 (%) Final Monos 04/09/2024 08:53:52 13.0 Above high normal 1.0-11.0 (%) Final Eosinophils 04/09/2024 08:53:52 4.6 0.0-6.0 (%) Final Basos 04/09/2024 08:53:52 1.3 0.0-2.0 (%) Final Immature Granulocyte, Percent 04/09/2024 08:53:52 0.3 0.0-2.0 (%) Final Absolute Segs 04/09/2024 08:53:52 4.22 1.80-7.70 (K/uL) Final Lymphs, absolute 04/09/2024 08:53:52 1.94 1.00-4.80 (K/ul) Final Monos, Abs 04/09/2024 08:53:52 0.99 0.00-1.10 (K/uL) Final Eos, Abs 04/09/2024 08:53:52 0.35 0.00-0.70 (K/uL) Final Basos, Abs 04/09/2024 08:53:52 0.10 0.00-0.20 (K/uL) Final Immature Granulocytes, Number 04/09/2024 08:53:52 0.02 0.00-0.20 (K/uL) Final Performing Location [facility] [place] [address] [facility] [address]
--- OUTSIDE RECORDS SUMMARY | 2024-08-31 16:30 | External Medical Summary | Summary of Care ---
Author Name Unknown Organization [facility] Address [address] [place] [address] Phone [phone] Care Team Providers Care Gravity Prospecting Observer Helper Name Role Phone GirishSnow galan Primary Care Provider + [phone] Reason for Visit * Reason Onset Date Comments Referral 04/28/2024 Encounter Details Date Type Department Care Team (Late st Contact Info) Description 04/28/2024 New Patient Triage (NUCLEAR SPECTROSCOPIST USE ONLY) Cardiology, [facility] [address] [place] [address] India Bang CRNP [address] [place] [address] Referral Allergies No known active allergiesdocumented as of this encounter (statuses as of 05/02/2024) Medications Medication Sig Dispensed Refills Start Date [...] as of this encounter (statuses as of 05/02/2024) Active Problems Problem Noted Date Diagnosed Date Aortic dilatation 01/09/2024 History of TIA (transient ischemic attack) 01/09 Essential hypertension with goal blood pressure less than 140/90 01/08/2024 History of prostate cancer 01/08/2024 GERD (gastroesophageal reflux disease) documented as of this encounter (statuses as of 05/02/2024) Immunizations Name Administration Dates Next Due COVID-19 [...] on file documented as of this encounter Progress Notes * Catrachito Sofia PA-C - 04/28/2024 5:46 PM EDT Does patient need to be seen?: Yes Modality: Office visit Urgency: Within 30 days (routine) Discussed care plan with patient or proxy?: Yes, Mannie Communicated with patient on Date (mm/dd/yyyy): 04/28/2024 at Time ([facility]): 10:28 AM Outside records notable for the following: Previously followed by [facility] - Dr. Heladio Serrano MD. Problem List: History of hypertension, hypertensive heart disease Cardiomyopathy, LVEF 40 to 45% in 2021, resolved. 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, left anterior fascicular block Moderate right internal carotid artery stenosis History of transient ischemic attack/CVA, undefined History of loop recorder implantation in 2017, extracted Dyslipidemia, statin myalgias Peripheral neuropathy Prostate cancer, status post radiation GERD Former smoke, quit in 1980 Moderate alcohol use Chronic fatigue disorder Osteoarthritis Neuropathy Bilateral knee surgery Catrachito Sofia PA-C Department of Cardiology * Marian Mullins LPN - 04/28/2024 10:27 AM EDT * Harpreet Mariankash Tristan LPN - 04/28/2024 10:05 AM EDT New Patient Triage What is the diagnosis/reason for referral?: Hypertension goal BP (blood pressure) < 140/90 [I10] Enter order ID here: [id number] Specialty specific documentation: Cardiology Structural Heart Discussed care plan with patient or proxy?: Yes mychart Communicated with patient on Date (mm/dd/yyyy): 04/28/24 at Time ([facility]): 1006 INFO FROM CARDIAC REFERRAL pt wants to research docs first, will call when ready to set up 01.08.24 tet (Pt recently moved to [facility] from [place] would like to establish with abrasives sales representative) APPOINTMENT INFO: Date & Time 08/04/2024 10:00 AM Provider En Carpio DO Department Cardiology, [facility] PCP/REFERRING From 04/09/[address] Aguayo note: HPI: Roldan Raphael is a 79 year old male who presents today for regular return. Pt would like to see a abrasives sales representative here. He has not yet scheduled. He notes that he did f/u with his abrasives sales representative in the last week or so. Pt feels that the myrbetriq is working well enough. He notes that he typically has enough warning. He does occasionally have some incontinence if he bends or lifts as this can cause some issue for him. He notes that he really cannot delay getting to a bathroom when needed. 04/09/24 BP 118/74 EKG/ECHO/ZIO/CARDIAC TESTING 04/09/24 REASON FOR STUDY: Hypertension;Hypertension CONCLUSIONS: Sinus rhythm with 1st degree AV block Right bundle branch block Left anterior fascicular block Bifascicular block Left ventricular hypertrophy Abnormal ECG No previous ECGs available Ventricular Rate: 60 Atrial Rate: 60 IL Interval: 290 QRS Duration: 158 QT/QTc: 468/468 ms P-R-T [place]: 52 : -58 : -3 degrees LABS Results for orders placed or performed in visit on 04/09/24 COMPREHENSIVE METABOLIC PANEL Result Value Ref Range BUN 18 6 - 20 mg/dL Creatinine 1.1 0.6 - 1.2 mg/dL Estimated Glomerular Filtration Rate 71 >=60 mL/min Sodium 138 135 - 146 mmol/L Potassium 4.4 3.5 - 5.1 mmol/L Chloride 103 98 - 107 mmol/L CO2 26 22 - 32 mmol/L Anion Gap 9 7 - 15 mmol/L Glucose 75 70 - 120 mg/dL Albumin 4.3 3.8 - 5.0 g/dL AST 32 10 - 50 U/L Alkaline Phosphatase 89 35 - 130 U/L Bilirubin, Total 1.4 (H) <=1.2 mg/dL Calcium 9.5 8.4 - 10.2 mg/dL Protein 6.7 6.0 - 8.3 g/dL ALT 25 10 - 50 U/L LIPID PANEL WITH DIRECT LDL IF TG IS HIGH Result Value Ref Range Triglycerides 81 <=174 mg/dL Cholesterol 157 <200 mg/dL HDL Cholesterol 53 >39 mg/dL Non-HDL Cholesterol 104 <=159 mg/dL LDL Cholesterol 88 <=129 mg/dL PSA Result Value Ref Range PSA 0.06 <4.10 ng/mL CBC Result Value Ref Range WBC 7.62 4.00 - 10.80 K/uL RBC 4.87 4.50 - 5.25 M/uL HGB 13.8 (L) 14.0 - 16.8 g/dL HCT 41.7 40.0 - 48.4 % MCV 85.6 82.0 - 99.5 fL MCH 28.3 27.0 - 34.0 pg MCHC 33.1 32.0 - 36.0 g/dL RDW 15.4 11.5 - 15.5 % PLT 264 140 - 400 K/uL MPV 12.4 6.6 - 11.1 fL nRBCs 0 <=0 /100 WBCs DIFFERENTIAL, AUTOMATED Result Value Ref Range WBC 7.62 4.00 - 10.80 K/uL Neutrophils % 55.3 40.0 - 75.0 % Lymphocytes % 25.5 18.0 - 42.0 % Monocytes % 13.0 (H) 1.0 - 11.0 % Eosinophils % 4.6 0.0 - 6.0 % Basophils % 1.3 0.0 - 2.0 % Immature Granulocytes % 0.3 0.0 - 2.0 % Absolute Neutrophils 4.22 1.80 - 7.70 K/uL Absolute Lymphocytes 1.94 1.00 - 4.80 K/ul Absolute Monocytes 0.99 0.00 - 1.10 K/uL Absolute Eosinophils 0.35 0.00 - 0.70 K/uL Absolute Basophils 0.10 0.00 - 0.20 K/uL Absolute Immature Granulocytes 0.02 0.00 - 0.20 K/uL ALBUMIN / CREATININE RATIO, URINE Result Value Ref Range Albumin, Random Urine 2.00 mg/dL Creatinine, Random Urine 113 mg/dL Albumin / Creatinine Ratio, Urine 18 <30 mg/g Creat MEDICATIONS Pt is currently taking; Amlodipine 5mg daily lisinopril 20mg daily HS lisinopril-HCTZ 20-12.5mg daily AM Also taking myrbetriq extended release 50mg Lisinopril-hydroCHLOROthiazide 20-12.5 MG Oral Tablet Metamucil 4 in 1 Fiber 43 % Oral Powder (Psyllium) amLODIPine Besylate 5 MG Oral Tablet (Norvasc) Clopidogrel Bisulfate 75 MG Oral Tablet (pLAVix) Doxycycline Hyclate 20 MG Oral Tablet Lisinopril 20 MG Oral Tablet (Prinivil) Pantoprazole Sodium 40 MG Oral Tablet Delayed Release (Protonix) Myrbetriq 50 MG Oral Tablet Extended Release 24 Hour (Mirabegron ER) Aspirin 81 MG Oral Tablet Delayed Release (Aspirin 81) documented in this encounter Plan of Treatment Upcoming Encounters Date Type Department Care Team (Late st Contact Info) Description 05/27/2024 10:00 AM EDT Nurse Only Ancillary [address] [place] [address] College, Nurse Annual Wellness Visit [address] [address] 08/04/2024 10:00 AM EDT Office Visit Cardiology, [facility] 132 [facility] [place] [address] En Carpio, 132 [facility] [place] [address] 08/14/2024 11:20 AM EDT Office Visit Family Practice [address] [address] Snow Aguayo DO [address] [place] [address] 09/02/2024 11:00 AM EDT Office Visit Urology, [facility] [address] [place] [address] Teddy Steinberg MD [address] [place] [address] Health Maintenance Due Date Last Done Comments [...] filedocumented as of this encounter Care Teams Gravity Prospecting Observer Helper Relationship Specialty Start Date End Date Snow Aguayo DO PCP - General Family Medicine 01/09/24 documented as of this encounter
--- OUTSIDE RECORDS SUMMARY | 2024-08-31 16:30 | External Medical Summary ---
Author Name Unknown Address Unknown Organization K01:[facility] - [address] [facility] [address] Laboratory Report Ordering Provider Test Date Status BOOGIE GUEVARASAIDAIK 04/09/2024 08:53:52 Final Observation Date Value Abnormality Reference (Units ) Status Triglyceride 04/09/2024 08:53:52 81 <=174 ( mg/dL) Final Triglyceride Reference Range s (mg/dL):
<150 Acceptable
150-174 Borderline high
175-499 High
>=500 Very high Cholesterol 04/09/2024 08:53:52 157 <200 (mg /dL) Final Total Cholesterol Reference Ranges (mg/dL):
<200 Desirable
200-239 Borderline high
>=240 High HDL 04/09/2024 08:53:52 53 >39 (mg/dL ) Final HDL Cholesterol Reference Ra nges (mg/dL):
>=60 High (Desirable)
<50 Low (Undesirable) For Females
<40 Low (Undesirable) For Males NON-HDL CHOLESTEROL 04/09/2024 08:53:52 104 <=159 (mg/dL) Final Non-HDL Cholesterol Referenc e Range (mg/dL):
<100 Target level for high risk ASCVD patient
<130 Optimal for general population
130-159 Near optimal for general population
160-189 Borderline High
190-219 High
>=220 Very High LDL, (calculated) 04/09/2024 08:53:52 88 <= 129 (mg/dL) Final LDL Cholesterol Reference Ra nges (mg/dL):
<70 Target level for high risk ASCVD patient
<100 Optimal for general population
100-129 Near optimal for general population
130-159 Borderline high
160-189 High
>=190 Very high Performing Location [facility] - [address] [facility] [address]
--- OUTSIDE RECORDS SUMMARY | 2024-08-31 16:30 | External Medical Summary | Summary of Care ---
Author Name Unknown Organization [facility] Address [address] [place] [place] [place] [address] Phone [phone] Care Team Providers Care Engineer/Conductor Name Role Phone Snow Aguayo DO Primary Care Provider [phone] Reason for Visit * Reason Onset Date Comments Appointment 05/27/2024 balance evaluati on Encounter Details Date Type Department Care Team (Late st Contact Info) Description 05/27/2024 Telephone Family Practice 65 [facility] [place] [address] [place] [phone] Snow Aguayo DO [address] [place] [address] Appointment (balance evaluation) Allergies No known active allergiesdocumented as of this encounter (statuses as of 05/30/2024) Medications Medication Sig Dispensed Refills Start Date [...] as of this encounter (statuses as of 05/30/2024) Active Problems Problem Noted Date Diagnosed Date Aortic dilatation 01/09/2024 History of TIA (transient ischemic attack) 01/09 Essential hypertension with goal blood pressure less than 140/90 01/08/2024 History of prostate cancer 01/08/2024 GERD (gastroesophageal reflux disease) 4 documented as of this encounter (statuses as of 05/30/2024) Immunizations Name Administration Dates Next Due COVID-19 mRNA, LNP-s, No Pre serve, 2-Dose Series (Moderna) 10/08/2021,02/05/2021,01/08/2021 Pneumococcal Conjugate Vacci ne, 20-valent ([id number]) 10/02/2022 Seasonal Influenza, Quadriva lent Hd (Fluzone Hd) 10/16/2023 TDAP (age 10 and older)(Boostrix) 01/15/2024 Zoster Vaccine Recombinant (Shingrix) 02/12/2023 ,09/25/2019 documented as of this encounter Social History Tobacco Use Types Packs/Day Years Used Date Smoking Tobacco: Former Cigarettes 0.2 42.7 1 11/1980 - 09/1979 Passive Smoke [...] encounter Miscellaneous Notes * Telephone Encounter - [facility] Rock Splitter - 05/30/2024 1:48 PM EDT Called and LVM for patient to return my call to schedule balance evaluation. * Telephone Encounter - Trisha Luis OSA - 05/27/2024 3:24 PM EDT Please call with date and time documented in this encounter Plan of Treatment Upcoming Encounters Date Type Department Care Team (Late st Contact Info) Description 08/04/2024 10:00 AM EDT Office Visit Cardiology, [facility] 132 [facility] [place] [address] En Carpio, DO 132 [facility] [place] [address] 08/14/2024 11:20 AM EDT Office Visit Family Practice [address] [place] [address] 293 [facility] [address] Snow Aguayo, DO 293 [facility] [place] [address] 09/02/2024 11:00 AM EDT Office Visit Urology, [facility] [place] [address] Teddy Steinberg MD [address] [place] [address] Health Maintenance Due Date Last Done Comments COVID-19 Vaccine (4 - 2022-2 4 season) 2023 10/08/2021, 02/05/2021, 01/08/2021 Influenza Vaccine (FLU shot) [...] filedocumented as of this encounter Care Teams Engineer/Conductor Relationship Specialty Start Date End Date Snow Aguayo DO [address] [place] [address] PCP - General Family Medicine 05/26/24 documented as of this encounter
--- OUTSIDE RECORDS SUMMARY | 2024-08-31 16:30 | External Medical Summary | Summary of Care ---
Author Name Unknown Organization [facility] Address [address] [place] [facility] [place] [address] Phone [phone] Care Team Providers Care Tool Coordinator Name Role Phone Snow Aguayo DO Primary Care Provider + [phone] Reason for Visit * Reason Onset Date Comments Appointment 04/21/2024 Needs for follow up from [place] Encounter Details Date Type Department Care Team (Late st Contact Info) Description 04/21/2024 Telephone Family Practice 65 [facility] [place] [address] [place] [address] Snow Aguayo DO [address] [place], [place] [phone] Appointment (Needs for follow up from [facility] ... Allergies No known active allergiesdocumented as of this encounter (statuses as of 04/23/2024) Medications Medication Sig Dispensed Refills Start Date [...] as of this encounter (statuses as of 04/23/2024) Active Problems Problem Noted Date Diagnosed Date Aortic dilatation 01/09/2024 History of TIA (transient ischemic attack) 01/09 Essential hypertension with goal blood pressure less than 140/90 01/08/2024 History of prostate cancer 01/08/2024 GERD (gastroesophageal reflux disease) 4 documented as of this encounter (statuses as of 04/23/2024) Immunizations Name Administration Dates Next Due COVID-19 [...] encounter Miscellaneous Notes * Telephone Encounter - Tone Foley OSA - 04/21/2024 11:39 AM EDT Right now, I am very very tight with getting sooner appointments. I am currently working on gettingthis changed. And my hope is to be able to schedule sooner, in situations like this. The patient has been placed on the Wait List. Thank you. 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 * Telephone Encounter - Trisha Luis OSA - 04/21/2024 11:10 AM EDT Would like to establish with Dr Carpio Saw cardiology in [place] I scheduled for 08/04/2024 Can he have sooner with him? documented in this encounter Plan of Treatment Upcoming Encounters Date Type Department Care Team (Late st Contact Info) Description 05/27/2024 10:00 AM EDT Nurse Only Ancillary 65 [facility] 293 [place] [address] College, Nurse Annual Wellness Visit 65 [facility] 293 [place] [address] 08/04/2024 10:00 AM EDT Office Visit Cardiology, [facility] 132 [facility] [place] [address] En Carpio, DO 132 [facility] [place] [address] 08/14/2024 11:20 AM EDT Office Visit Family Practice 65 [facility] 293 [place] [address] Snow Aguayo, DO 293 [facility] [address] 09/02/2024 11:00 AM EDT Office Visit Urology, [facility] 132 [facility] [place] [address] Teddy Steinberg MD 27 [facility] [address] [place] [id number] Health Maintenance Due Date Last Done Comments [...] filedocumented as of this encounter Care Teams Tool Coordinator Relationship Specialty Start Date End Date Snow Aguayo DO [address] [place] [address] PCP - General Family Medicine 01/09/24 documented as of this encounter
--- OUTSIDE RECORDS SUMMARY | 2024-08-31 16:30 | External Medical Summary | Summary of Care ---
Author Name Unknown Organization [facility] Address [address] [facility] [place] [address] Phone [phone] Care Team Providers Care Tire Adjuster Name Role Phone Snow Aguayo DO Primary Care Provider + [phone] Reason for Visit * Reason Comments Follow Up Encounter Details Date Type Department Care Team (Late st Contact Info) Description 04/09/2024 8:00 AM EDT Office Visit Family Practice [address] [facility], [place] [address] [place] [phone] Snow Aguayo DO [address] [place] [address] Essential hypertension with goal blood pressure less [...] DO - 04/09/2024 8:25 AM EDT - Armani Curran Sheldon Henry documented in this encounter Progress Notes * Snow Aguayo DO - 04/09/2024 8:05 AM EDT SUBJECTIVE: Chief Complaint Patient presents with Follow Up HPI: Roldan Raphael is a 79 year old male who presents today for regular return. Pt would like to see a tie in hand here. He has not yet scheduled. He notes that he did f/u with his tie in hand in the last week or so. Pt [...] Surgical History: [place] [address] - REMOVE TONSILS INFORMATION prostate radiation INFORMATION [...] TG IS HIGH Pt follows with a tie in hand in [place]. Has not yet established here. (Z85.46) History [...] neuropathy - no worse. Has notfound local tie in hand - still traveling to see previous tie in hand. Needs to find local dentist. Does have Urology appt coming up in [place] with Dr. Steinberg. Declined COVID vaccine today. documented in this encounter Plan of Treatment Upcoming Encounters Date Type Department Care Team (Late st Contact Info) Description 07/14/2024 8:00 AM EDT Office Visit Family Practice 65 [facility] [place] 293 [facility] [place] [address] Snow Aguayo DO 293 [facility] [address] 09/02/2024 11:00 AM EDT Office Visit Urology, [facility] 132 [facility] [place] [address] Teddy Steinberg MD 27 [facility] [address] [place] [address] Pending Results Name Type Priority Associated Diagnoses [...] prostate documented in this encounter Care Teams Tire Adjuster Relationship Specialty Start Date End Date Snow Aguayo DO [address] [place] [address] PCP - General Family Medicine 01/09/24 documented as of this encounter
[2024-08-31] MEDS: GADOBUTROL 30ML VIAL IV ONE (17:22)
[2024-08-31] MEDS ORDERED: Heparin IV Adult Wt-Based Standard *NO* INITIAL Bolus Protocol IV SCH (17:48)
--- NOTE | 2024-08-31 18:17 | Magnetic Resonance Report ---
MR brain wo/w con HISTORY: 79 years-old Male CVA acute stroke like symptoms COMPARISON: Head CT, CTA head and neck studies of same day TECHNIQUE: Multiplanar multisequence MRI of the brain was obtained with and without IV contrast. FINDINGS: There are numerous scattered punctate foci of restricted diffusion noted within and multiple vascular territory distribution. This includes the centrum semiovale of the frontal and parietal lobes with a dditional foci within the temporal lobes, brainstem, left brachium pontis and bilateral cerebellar he mispheres. The largest focus measures 1.3 cm in left cerebellum on image 6 series 5. These foci demon strate intermediate to decreased signal on the ADC map. No acute or subacute territorial infarct. Mid line structures are unremarkable. No acute intracranial hemorrhage, midline shift, abnormal extra-axi al collection, hydrocephalus or intra-axial mass. No pathologic blooming artifact on the T2*series. Cerebral venous sinuses and major arterial flow voids appear patent. The skull and soft tissues are u nremarkable. Prior bilateral lens repair. Involutional changes with moderate T2/FLAIR hyperintense fo ci throughout the white matter compatible with chronic microvascular ischemic disease. Small focus of chronic encephalomalacia of the anteroinferior left frontal lobe. Postcontrast images are motion deg raded. No abnormal enhancement identified. IMPRESSION: 1. Multiple vascular territory foci of mostly subcentimeter restricted diffusion noted throughout the cerebrum, brainstem and cerebellum. Findings compatible with acute versus subacute lacunar infarcts, likely from a proximal thromboembolic source. Correlation with echocardiogram recommended. 2. No acute or subacute territorial infarct, midline shift or intracranial hemorrhage. 3. No abnormal enhancement. 4. Involutional changes with chronic microvascular ischemic disease. ACT 112: Negative or not required by law. The above report was generated using voice recognition software. It may contain grammatical, syntax o r spelling errors. Electronically signed by: Fredis Teixeira M.D. 08/31/2024 6:15 PM
--- NOTE | 2024-08-31 18:22 | Neurology Consultation ---
Date of Consultation August 31, 2024 Assessment & Plan (1) Embolic stroke: Roldan Raphael is an 79 yo M presenting with widely scattered embolic stroke concerning for cardioembolism, not related to the R ICA. Given the troponin elevation beyond what would be expected for stroke alone I would suspect there is structural heart disease as the cause. Agree with cardiology consult and at least TTE, with low threshold to proceed to AMEYA if TTE is unrevealing. In the meantime would do heparin gtt no bolus and aspirin unless directed otherwise by cardiology. -- Cardiology consult -- Heparin gtt no bolus -- Aspirin 81mg daily, stop plavix -- Agree with lipitor 40, LDL <70 -- TTE, possible progression to AMEYA depending on results and cards input -- Telemetry -- Therapy evals, expect some sx fluctuation given pontine stroke -- Outpatient referral to neurosurgery/vasc surgery for currently asymptomatic carotid stenosis -- We will continue to follow, please contact us with questions Telehealth Consultation Telehealth Information Telehealth Information: I performed this visit using a real-time telehealth connection between my location and the patients location ([facility]). After connecting through interactive tele-video, patient was identified by name and date of and/or wristband check.Patient (or authorized healthcare sales representative facility services) was informed that this was a telemedicine visit and it was being conducted confidentially over secure lines. My office door was closed and no one else was present in the room with me.Patient (or authorized healthcare sales representative facility services) provided consent to proceed with the visit, expressed an understanding of privacy and security of the telemedicine visit, and gave permission to have a hospital sales representative facility services in the room in order to assist with the visit and to conduct portions of the visit, as needed. I informed the patient (or authorized healthcare sales representative facility services) that I reviewed their record and presented the opportunity for them to ask any questions regarding the visit today. The patient agreed to participate. History of Present Illness Reason for Consultation: R hand numbness, stroke Requesting Physician: Dr. Weaver Attending Physician: Jean Weaver MD History of Present Illness Roldan Raphael is an 79 yo M presenting with acute onset gait instability, R hand numbness and slurred speech around noon today. He presented to [facility] and was seen by [facility] who advised no TNK given his improving symptoms. He does have a history of TIA in the past with trouble word finding that resolved and since then he has been on aspirin and plavix. Currently he reports that his numbness is improved but continues to have mild slurred speech and difficulty with coordination though hasnt tried to walk. He otherwise denies any chest pain and reports that an echo in the past did not show a PFO. Allergies Allergy/AdvReac Type Severity Reaction Status Date / Time No Known Allergies Allergy Verified 08/31/24 16:29 Home Medications Medication Instructions Recorded Confirmed Type amlodipine 5 mg tablet 5 mg PO QAM 08/31/24 08/31/24 History aspirin 81 mg PO DAILY 08/31/24 08/31/24 History clopidogrel 75 mg tablet 75 mg PO DAILY 08/31/24 08/31/24 History lisinopril 20 1 tab PO DAILY 08/31/24 08/31/24 History mg-hydrochlorothiazide 12.5 mg tablet mirabegron 50 mg tablet,extended 50 mg PO DAILY 08/31/24 08/31/24 History release 24 hr (Myrbetriq) pantoprazole 40 mg tablet,delayed 40 mg PO DAILY 08/31/24 08/31/24 History release Patient History Medical History Hypertension TIA (transient ischemic attack) Social History Smoking Status: Never smoker Hx Alcohol Use: Yes Alcohol type: hard liquor Hx Substance Use: No Preferred Language: Iraqi Communication Ability: Effective Real Estate Accountant Required: No Beliefs That Will Affect Care: None Current Living Situation: Spouse Other Information That Helps Us Care for You: No Feels Safe at Home: Yes Safety Concerns: Feels Safe At This Time Assistive Devices: Glasses Review of Systems +numbness, dysarthria Physical Exam Neurological Examination: Mental Status: Awake and alert. Oriented to person, place, and time. Fluent with mild dysarthria. Comprehension intact. Affect appropriate. Cranial Nerves: II: Reads NIHSS cards, pupils 3/3 to 2/2, harris grossly intact. III/IV/: Versions intact without nystagmus, no gaze preference. V: Facial sensation symmetric to light touch VII: Facial expression symmetric VIII: Hearing intact to voice IX/X: Palate elevates symmetrically XI: Shoulder shrug symmetric XII: Tongue midline Motor: Strength was symmetric and antigravity throughout. Pronator drift was absent. There were no abnormal movements. Sensory: Sensation to light touch was intact. Reflexes: Unable to assess over telemedicine Cerebellar: Ataxic with FNF on R and HTS bilaterally Results & Data Vital Signs (Past 12 Hours) Vital Signs Temp Pulse Pulse Resp BP Pulse Ox O2 Del Method 08/31/24 17:12 75 08/31/24 16:32 36.5 C 62 18 160/94 H 94 Room Air 08/31/24 15:53 75 08/31/24 15:15 67 19 134/71 95 Room Air 08/31/24 14:16 65 20 145/94 H 96 Room Air 08/31/24 14:05 62 22 141/110 H Room Air 08/31/24 13:44 36.6 C 72 20 94 Room Air Laboratory Results Abnormal lab results 08/31/24 08/31/24 08/31/24 Range/Units 14:04 14:11 16:03 [place] # (Auto) 1.05 H (0.11-0.59) K/uL Glucose 102 H (70-99(Fasting)) mg/dl POC Glucose 113 H (70-99) mg/dl Total Bilirubin 1.8 H (0.2-1.0) mg/dl Troponin I High Sens 503.0 H* 479.5 H* (0-20) pg/ml Diagnostic Findings CTA head and neck - R ICA stenosis 70-90% MRI brain - scattered multifocal ischemic stroke in multiple vascular territories. More importantly has a L paramedian pontine stroke. All appear of the same age.
[2024-08-31] MEDS: HEPARIN SODIUM/DEXTROSE 25,000 UNITS/500 ML BAG IV SCH (19:14)
[2024-09-01 01:47] LABS: Hematocrit (blood only) 39.4 % (42.0-52.0); Hemoglobin 13.7 g/dl (14.0-18.0); Mean Corpuscular Hemoglobin 29.8 pg (25.0-34.0); Mean Corpuscular Hgb Conc 34.8 g/dL (32.0-36.0); Mean Corpuscular Volume 85.7 fL (80.0-100.0); Mean Platelet Volume 11.4 fL (9.4-12.4); Platelet Count 231 K/uL (130-400); RDW Coefficient of Variation 14.3 % (11.5-14.5); RDW Standard Deviation 44.8 fL (36.4-46.3); White Blood Count 8.26 K/ul (4.8-10.8)
[2024-09-01 02:08] LABS: BUN Creatinine Ratio 14.5 (10-20); Bilirubin Direct 0.2 mg/dl (0-0.2); Bilirubin,Total 1.5 mg/dl (0.2-1.0); Calcium 8.6 mg/dl (8.6-10.3); Creatinine Clr Calc Pharmacy 55.7 ml/min; Magnesium 1.9 mg/dl (1.7-2.4); Potassium 3.6 mmol/L (3.5-5.1)
[2024-09-01 02:09] LABS: Albumin Level 3.8 gm/dl (3.4-5.0); Chol HDL Ratio 2.8 (0-5); Total Protein 6.5 gm/dl (6.0-8.3)
[2024-09-01 02:11] LABS: ANTI-Xa, UFH(UnfractionatedHep 0.46 IU/ml (0.3-0.7)
[2024-09-01 02:40] LABS: Troponin I High Sensitivity 806.4 pg/ml (0-20)
[2024-09-01 07:40] LABS: Estimated Average Glucose 120 mg/dl; Hemoglobin A1C 5.8 % (4.5-5.6)
--- NOTE | 2024-09-01 08:22 | Electrocardiogram Report ---
Test Reason : Blood Pressure : */* mmHG Vent. Rate : 61 BPM Atrial Rate : 77 BPM P-R Int : 278 ms QRS Dur : 146 ms QT Int : 466 ms P-R-T Axes : 18 -59 8 degrees QTcB Int : 469 ms Sinus rhythm with 2nd degree A-V block (Mobitz I) Right bundle branch block Left anterior fascicular block Minimal voltage criteria for LVH, may be normal variant ( R in aVL ) Abnormal ECG No previous ECGs available Confirmed by Shaun Hyde ([id number]) on 09/01/2024 8:22:18 AM Referred By: Confirmed By: Shaun Hyed
--- NOTE | 2024-09-01 08:34 | Electrocardiogram Report ---
Test Reason : Blood Pressure : */* mmHG Vent. Rate : 66 BPM Atrial Rate : 66 BPM P-R Int : 290 ms QRS Dur : 160 ms QT Int : 466 ms P-R-T Axes : 4 -59 27 degrees QTcB Int : 488 ms Sinus rhythm with 1st degree A-V block with occasional Premature ventricular complexes Right bundle branch block Left anterior fascicular block Moderate voltage criteria for LVH, may be normal variant Abnormal ECG When compared with ECG of 31-Aug-2024 14:07, Premature ventricular complexes are now Present Confirmed by Shaun Hyde ([id number]) on 09/01/2024 8:33:54 AM Referred By: REFERRED SELF Confirmed By: Shaun Hyde
--- NOTE | 2024-09-01 08:50 | Hospitalist Progress Note ---
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 Patient was made a stroke alert on arrival to the ED. Telestroke was consulted and recommended against TNK use given that his last known well was around 12PM this afternoon. Stroke-Like Symptoms & High-Grade Right Internal Carotid Artery Stenosis: Acute H/OTIA and known high grade R ICA stenosis Vitals remain stable. BP: 166/89 -Head CT negative for ICH, midline shift or SDH. Chronic microvascular ischemic disease in addition to an age-indeterminate right cerebellar lacunar infarct. -Head and neck CTA imaging revealed high-grade stenosis (80%) of the proximal cervical segment right ICA secondary to prominent atherosclerotic plaque. -Brain MRI Multiple vascular territory foci of mostly subcentimeter restricted diffusion noted throughout the cerebrum, brainstem and cerebellum. Findings compatible with acute versus subacute lacunar infarcts, likely from a proximal thromboembolic source. NO ICH, SDH, midline shift -Lyme (-) -ECHO EF 55-60%, mild LVH, mild to moderate AR PT/OT/ST Routine neurochecks Was not on a lipid lowering agent; started on atorvastatin on admission lipid panel TG 59, LDL 71, HDL 47, Hgb A1c 5.6 Elevated Troponin I Level, Hypertensive Heart Disease & Conduction Disease: Troponin 503 on presentation--->806--> 504 this AM; trend Q6 x1 Initial EKG showed sinus rhythm with marked sinus arrhythmia with first-degree AV block and bifascicular block. CXR revealed cardiomegaly without acute process. He recently established with [facility] at [place] last month [Dr. Carpio]. Known history of first-degree AVB, RBBB and left anterior fascicular block and LVH. Previous echocardiogram report from 08/28/2023 most recent today: EF 55-60%, mild LVH, mild to moderate AR If troponin were to rise any further, patient will most likely need to be started on IV heparin. Cardiology consult done; appreciate recommendations; they recommended continuing dual antiplt Keep LDL < 55; lipid panel drawn yesterday: TG 59, LDL 71, HDL 47 Zetia 10 mg added on 09/01 for adjuvant therapy AMEYA to rule out intracardiac thrombus and aortic atheroma planned for 09/03 Cards discussing with EP lab about possible implantable loop monitor (will discuss post AMEYA/findings) Will keep on IV Heparin until after AMEYA tomorrow (09/02). Cards ordered blood culture; in case mass on AMEYA, will be helpful for determining clot vs infection Vascular consultation given high-grade stenosis Other Chronic Medical Conditions: GERD, urinary incontinence --> Can continue home medications for these specific conditions. Disposition: PCP: Snow Aguayo DO Code Status: FULL CODE DVT Prophylaxis: Teds/SCDs Disposition: Admit to PCU/Telemetry I spent a total of 58 minutes coordinating, documenting, and providing care for this patient excluding time spent in the performance of separately billed services. This included personally reviewing all current laboratories and imaging studies, medical reconciliation, outpatient chart review and discussion with specialists. Admission and Anticipated Discharge Date Admission Date: August 31, 2024 Supervising Physician Co-Signing Physician Notes I have seen and discussed the case with the collaborating advanced practitioner. I agree with the above PN. I have reviewed and confirmed the patients medical history, the findings on physical examination, and the patients diagnosis and treatment plan with Isabelle BRENNAN and agree with the information documented. Neuro suspects ?cardioemboli, Cards following--continue heparin until AMEYA to r/o clot, then contingent on findings plan to resume DAPT. Plan for loop recorder as well. LE duplex ordered. rest of plan as above I spent a total of 5 minutes coordinating, documenting, and providing care for this patient excluding time spent in the performance of separately billed services. All of the aforementioned completed outside of collaborating with the assigned advanced practitioner for a full treatment plan. I have reviewed the advanced practitioner's documentation, and I agree with, and take responsibility for the plan of care Subjective pt sitting in his hospital bed in no apparent distress; has a good sense of humor pt denies LOPES, dizziness, chest pain, palpitations, swelling, N/V/D. Reports he has had 'floaters' in his eyes over the weekend, nothing today Ambulated to the bathroom with a walker; nursing reported dragging of his left foot, but I did not appreciate that observing him walking back to his bedside chair. Review of Systems Review of Systems: Neuro: (-) Falls, trauma, slurred speech HEENT: (-) LOPES, dizziness, dysphagia, visual or auditory changes CV: (-) CP, palpitations, swelling Resp: (-) SOB GI: (-) appetite changes, N/V/D, bowel changes : (-) urinary changes Skin: (-) rashes Psych: (-) anxiety, depression Physical Exam Physical Exam: Neuro: AAOx4, PERRLA, no aphagia, memory changes, CNII-XII grossly intact HEENT: head normocephalic, moist mucus membranes CV: S1/S2, (-) M/G/R, (-) edema, cap refill < 3 seconds Resp: Lungs CTA in all harris. On RA GI: Abdomen S/NT/ND, Ax4 bowel sounds, (-) CVA tenderness Musculoskeletal: 5/5 B/L UE strength, 5/5 B/L LE strength. No gait disturbance Skin: (-) rashes , (-) erythema. Psych: euthymic mood Results & Data Results & Data Vital Signs (Past 12 Hours) Vital Signs Temp Pulse Pulse Resp BP Pulse Ox O2 Del Method 09/01/24 07:45 67 09/01/24 07:22 36.9 C 65 18 166/89 H Room Air 09/01/24 03:48 36.8 C 66 16 150/95 H 92 Room Air 09/01/24 00:25 68 08/31/24 22:38 36.9 C 63 16 129/63 95 Room Air Laboratory Results Short CBC 08/31/24 09/01/24 Range/Units 14:04 01:34 WBC 9.21 8.26 (4.8-10.8) K/ul Hgb 14.5 13.7 L (14.0-18.0) g/dl Hct 43.4 39.4 L (42.0-52.0) % Plt Count 273 231 (130-400) K/uL BMP 08/31/24 09/01/24 14:04 01:34 Sodium 138 137 Potassium 3.8 3.6 Chloride 105 103 Carbon Dioxide 25 28 BUN 19 18 Creatinine 1.14 1.24 Glucose 102 H 105 H Calcium 8.9 8.6 Liver Function 08/31/24 09/01/24 Range/Units 14:04 01:34 Total Bilirubin 1.8 H 1.5 H (0.2-1.0) mg/dl Direct Bilirubin 0.2 (0-0.2) mg/dl AST 32 27 (13-39) U/L ALT 22 19 (7-52) U/L Alkaline Phosphatase 69 64 (34-104) U/L Albumin 4.1 3.8 (3.4-5.0) gm/dl
[2024-09-01] MEDS ORDERED: CLOPIDOGREL BISULFATE 75 MG TAB PO SCH (09:00)
[2024-09-01] MEDS: PANTOprazole 40 MG TAB PO SCH (09:12)
[2024-09-01] MEDS: ASPIRIN 81 MG ECTAB PO SCH (09:12)
[2024-09-01] MEDS: ATORVASTATIN 40 MG TAB PO SCH (09:12)
[2024-09-01] MEDS: VIBEGRON 75 MG TAB PO SCH (09:13)
--- NOTE | 2024-09-01 10:02 | Cardiology Consultation ---
Date of Consultation September 01, 2024 Assessment & Plan (1) Embolic stroke: (2) Carotid artery stenosis: (3) Elevated troponin I level: Plan See supervising solutions delivery consultant's documentation for recommendations and plan of care. Supervising Physician Co-Signing Physician Notes Attending Staff: * Pt seen and evaluated with [facility] staff * Concur with observations and plans 79 yo man presenting with visual disturbance + difficulty with speech + right hand numbness + gait instability * Stroke alert called on admission * Brain MRI - widely-scattered embolic CVA * No Thrombolytics given as Sx were resolving * Prior TIA * Was on ASA and Plavix * Started on IV Heparin * Neuro concerned about cardio-embolic stroke * Troponin elevation - peak 806 * EKG - no ischemic changes * Transthoracic ECHO - 09/01/2024 - Normal LVEF - no WMA - no interatrial shunt - no vegetation * Had an implantable loop monitor in the past - unclear * Right Carotid - High Grade Stenosis; Left Carotid <50% Plans: * Continue ASA * Consider continuation of DAPT until clear indiction for systemic anticoagulation * LDL 71 - + Carotid Disease * Goal LDL <55 * Continue Lipitor 40 mg po per day - Appears to have been added this admission * Add Zetia 10 mg po per day * Considering underlying conduction system disease (trifasicular block) - occasional dropped beats * Implantable Loop Monitor recommended - will call our EP service * Considering AMEYA for a more sensitive look at intracardiac thombi + Aortic Atheroma * Would review MRI with Neurology to ensure that Cerebrovascular Disease is not playing a role * Check LE Duplex to excluded DVT - recent travel * No hypercoaguable hx * Will need a coronary evaluation at some point - Coronary CTA as an outpt Mark Wooten History of Present Illness Reason for Consultation: Elevated troponin; Stroke Like Symptoms Requesting Physician: [facility] Attending Physician: Dr. Wooten History of Present Illness Patient is a 79 year old male admitted for visual disturbances, slurred speech, gait instability, right hand numbness. Stroke alert called and neuro consulted. No TNK recommended as his symptoms were resolving upon admission. Has been taking ASA and Plavix historically for prior TIA. Findings on head/neck and Brain MRI of widely scattered embolic CVA. Neuro concerned that this is cardio source and cardiology consulted. Started on IV heparin. ASA continued. Plavix discontinued. Atorvastatin started at 40 mg daily. HS troponin elevated on admission and trending [phone]. No acute ischemic EKG changes. No chest pain reported on admission. No SOB. EKG reviewed on admission NSR with probable type II AV block. Known underlying conduction system disease. Echo completed this morning with preserved LVEF, no wall motion abnormalities. EF 55-60%. Aortic sclerosis mild without significant aortic valvular stenosis. Mod to moderate AI. Aortic root measuring 4.0 and ascending aorta measuring 3.9 cm. No evidence of documented shunt. History includes: 1. History of TIA in 2017 - on chronic ASA and Plavix. 2. LINQ implantation in 2017 - no findings of atrial fibrillation 3. Hypertensive heart disease with LVH 4. Mild enlargement of ascending aorta and aortic root 5. RBBB, LAFB 6. PVC's At time of consult, patient resting in chair. Family at bedside. He reports feeling good this morning. Symptoms resolved. No chest pain, dyspnea, dizziness. No visual disturbances. Gait improved. He traveled on a bus 4 hours this week. No calf pain. No edema. Allergies Allergy/AdvReac Type Severity Reaction Status Date / Time No Known Allergies Allergy Verified 08/31/24 16:29 Home Medications Medication Instructions Recorded Confirmed Type amlodipine 5 mg tablet 5 mg PO QAM 08/31/24 08/31/24 History aspirin 81 mg PO DAILY 08/31/24 08/31/24 History clopidogrel 75 mg tablet 75 mg PO DAILY 08/31/24 08/31/24 History lisinopril 20 1 tab PO DAILY 08/31/24 08/31/24 History mg-hydrochlorothiazide 12.5 mg tablet mirabegron 50 mg tablet,extended 50 mg PO DAILY 08/31/24 08/31/24 History release 24 hr (Myrbetriq) pantoprazole 40 mg tablet,delayed 40 mg PO DAILY 08/31/24 08/31/24 History release Patient History Medical History Hypertension TIA (transient ischemic attack) Social History Smoking Status: Never smoker Hx Alcohol Use: Yes Alcohol type: hard liquor Hx Substance Use: No Preferred Language: [place]alander Communication Ability: Effective 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 Peel Operator Required: No Beliefs That Will Affect Care: None Current Living Situation: Spouse Feels Safe at Home: Yes Assistive Devices: Glasses Review of Systems Review of Systems: All systems reviewed & are unremarkable except as noted in HPI & below Physical Exam Constitutional: WD/WN, vitals as above Neck: normal visual inspection No carotid bruit Respiratory: normal respiratory effort, lungs clear to auscultation Cardiovascular: Rate/Rhythm: regular rate and regular rhythm Heart Sounds: normal S1 and normal S2; no murmur Vessels: no JVD Extremities: no edema Gastrointestinal (Abdomen): normal bowel sounds, soft, nontender, no hepatosplenomegaly Skin: no rashes, warm and dry Neurologic: PERRL, EOMI, accommodation nl, no face palsy, no dysarthria Psychiatric: A+Ox3, euthymic affect Results & Data Vital Signs (Past 12 Hours) Vital Signs Temp Pulse Pulse Resp BP Pulse Ox O2 Del Method 09/01/24 07:45 67 09/01/24 07:22 36.9 C 65 18 166/89 H Room Air 09/01/24 03:48 36.8 C 66 16 150/95 H 92 Room Air 09/01/24 00:25 68 08/31/24 22:38 36.9 C 63 16 129/63 95 Room Air Laboratory Results Cardiac Enzymes 08/31/24 08/31/24 08/31/24 Range/Units 14:04 16:03 23:08 AST 32 (13-39) U/L Troponin I High Sens 503.0 H* 479.5 H* 757.4 H* D (0-20) pg/ml 09/01/24 09/01/24 Range/Units 01:34 07:55 AST 27 (13-39) U/L Troponin I High Sens 806.4 H* 569.4 H* D (0-20) pg/ml Coagulation 08/31/24 Range/Units 14:04 PT 11.2 (9.0-12.0) Seconds APTT 27 (21-31) Seconds Lipids 09/01/24 Range/Units 01:34 Triglycerides 59 (0-150) mg/dl Cholesterol 130 (0-200) mg/dl HDL Cholesterol 47 mg/dl Cholesterol/HDL Ratio 2.8 (0-5) CBC 08/31/24 09/01/24 Range/Units 14:04 01:34 WBC 9.21 8.26 (4.8-10.8) K/ul RBC 4.97 4.60 L (4.70-6.10) M/uL Hgb 14.5 13.7 L (14.0-18.0) g/dl Hct 43.4 39.4 L (42.0-52.0) % Plt Count 273 231 (130-400) K/uL Neut # (Auto) 5.52 (1.40-6.50) K/uL Lymph # (Auto) 2.22 (1.20-3.40) K/uL Haakon # (Auto) 1.05 H (0.11-0.59) K/uL Eos # (Auto) 0.29 (0.00-0.50) K/uL Baso # (Auto) 0.09 (0.00-0.20) K/uL Comprehensive Metabolic Panel 08/31/24 09/01/24 Range/Units 14:04 01:34 Sodium 138 137 (136-145) mmol/L Potassium 3.8 3.6 (3.5-5.1) mmol/L Chloride 105 103 (98-107) mmol/L Carbon Dioxide 25 28 (21-32) mmol/L BUN 19 18 (6-23) mg/dl Creatinine 1.14 1.24 (0.6-1.4) mg/dl Glucose 102 H 105 H (70-99(Fasting)) mg/dl Calcium 8.9 8.6 (8.6-10.3) mg/dl Direct Bilirubin 0.2 (0-0.2) mg/dl AST 32 27 (13-39) U/L ALT 22 19 (7-52) U/L Alkaline Phosphatase 69 64 (34-104) U/L Total Protein 6.9 6.5 (6.0-8.3) gm/dl Albumin 4.1 3.8 (3.4-5.0) gm/dl Intake and Output 08/31/24 09/01/24 09/01/24 22:59 06:59 14:59 Intake Total 240 / 691.5 451.5 / 691.5 144 / 144 Output Total 400 / 850 450 / 850 Balance -160 / -158.5 1.5 / -158.5 144 / 144 Intake: IV 211.5 / 211.5 144 / 144 Heparin Sodium/Dextrose 25,000 211.5 / 211.5 144 / 144 units In 500 ml @ 1,500 UNITS/ HR 30 mls/hr IV .[id number] [facility] Rx #:[id number] Oral 240 / 480 240 / 480 Output: Urine 400 / 850 450 / 850 Other: Weight 104.5 kg 103.5 kg Weight Measurement Method Built in [facility] Diagnostic Findings Telemetry reviewed: NSR with occ 2nd degree AV block type II. Occ PVC. No pauses or high degree AV block. No definitive atrial fib echo reviewed and completed this morning dated 09/01/24: Normal LVEF at 55-60% No wall motion abnormalities Mild LVH Aortic valve sclerosis without significant valvular stenosis. Mild to moderate AI Aortic root is mildly enlarged at 4.0 Ascending aorta is borderline enlarged at 3.9 cm No interatrial shunt with injection of contrast EKG reviewed dated 08/31/2024: Possible atrial flutter with 2:1 AV block Repeat EKG this morning, 09/01/24: NSR with 1st degree AV block Chest X-Ray 08/31/24 13:49 XR chest 1V portable HISTORY: 79 years-old Male neuro deficit, acute stroke suspected COMPARISON: None TECHNIQUE: AP view of the chest FINDINGS: Cardiac silhouette is enlarged. Descending thoracic aortic tortuosity. Mild coarsening of interstitium is likely chronic. No pneumothorax, pleural effusion or airspace consolidation. Bones appear grossly intact. Mild right hemidiaphragmatic elevation. IMPRESSION: Cardiomegaly without acute process. ACT 112: Negative or not required by law. The above report was generated using voice recognition software. It may contain grammatical, syntax or spelling errors Electronically signed by: Fredis Teixeira M.D. 08/31/2024 2:[address] 08/31/24 13:49 CT head/brain wo con CLINICAL HISTORY: 79 years-old Male with neuro deficit, acute stroke suspected. Acute stroke like symptoms TECHNIQUE: Multiple axial CT images of the head were obtained without contrast. A dose lowering technique was utilized adhering to the principles of ALARA. COMPARISON: None FINDINGS: No acute intracranial hemorrhage, midline shift, intracranial mass, hydr ocephalus, territorial ischemia or abnormal extra-axial collection. Involutional changes with chronic microvascular ischemic disease. Cerebral vascular calcifications. Calcifications are noted within the right lentiform nucleus. 12 mm hypodense focus in the posterior right mid cerebellar hemisphere on image 7 series 2. The calvarium is intact. The paranasal sinuses, mastoid air cells, and middle ear cavities are clear. IMPRESSION: 1. No acute intracranial hemorrhage, midline shift or acute territorial infarct. 2. Involutional changes with chronic microvascular ischemic disease. 3. Age-indeterminate right cerebellar lacunar infarct. ACT 112: Negative or not required by law. The above report was generated using voice recognition software. It may contain grammatical, syntax or spelling errors. Electronically signed by: Fredis Teixeira M.D. 08/31/2024 2:06 PM Head and Neck CTA 08/31/24 13:49 CT angio head w con, CT angio neck with con CLINICAL HISTORY: 79 years-old Male with neuro deficit, acute stroke suspected. Acute strokelike symptoms COMPARISON STUDY: Head CT same day TECHNIQUE: Following the IV administration of 120 cc of Optiray, CT angiogram of the head and neck was performed. Images are reviewed in the axial, sagittal, and coronal planes. 3-D MIPS images are created and assessed. IV contrast was administered without complication. All measurements were obtained according to NASCET criteria. A dose lowering technique was utilized adhering to the principles of ALARA. CT DOSE: 1126.42 mGy.cm FINDINGS: CT ANGIOGRAM OF THE HEAD AND NECK: Patent common carotid arteries. Atherosclerosis of the carotid bulbs, right greater than left. There is less than 50% stenosis of the proximal cervical segment left ICA. There is approximately 80% stenosis at the origin of the right ICA. The remainder of the right ICA is patent. The bilateral anterior and middle cerebral arteries are also patent. The vertebrobasilar system and posterior cerebral arteries are widely patent. There is no aneurysm, high-grade stenosis, or proximal branch occlusion identified. Dural sinuses appear patent. Involutional changes with chronic microvascular ischemic disease. Multilevel degenerative changes of the cervical spine. When apices are clear without pneumothorax. IMPRESSION: 1. High-grade stenosis of the proximal cervical segment right ICA secondary to prominent atherosclerotic plaque. 2. No additional high-grade stenosis, aneurysm, dissection or arterial occlusion identified within the head or neck. ACT 112: Negative or not required by law. The above report was generated using voice recognition software. It may contain grammatical, syntax or spelling errors. Electronically signed by: Fredis Teixeira M.D. 08/31/2024 2:17 PM Brain MRI 08/31/24 16:28 MR brain wo/w con HISTORY: 79 years-old Male CVA acute stroke like symptoms COMPARISON: Head CT, CTA head and neck studies of same day TECHNIQUE: Multiplanar multisequence MRI of the brain was obtained with and without IV contrast. FINDINGS: There are numerous scattered punctate foci of restricted diffusion noted within and multiple vascular territory distribution. This includes the centrum semiovale of the frontal and parietal lobes with additional foci within the temporal lobes, brainstem, left brachium pontis and bilateral cerebellar hemispheres. The largest focus measures 1.3 cm in left cerebellum on image 6 series 5. These foci demonstrate intermediate to decreased signal on the ADC map. No acute or subacute territorial infarct. Midline structures are unremarkable. No acute intracranial hemorrhage, midline shift, abnormal extra- axial collection, hydrocephalus or intra-axial mass. No pathologic blooming artifact on the T2*series. Cerebral venous sinuses and major arterial flow voids appear patent. The skull and soft tissues are unremarkable. Prior bilateral lens repair. Involutional changes with moderate T2/FLAIR hyperintense foci throughout the white matter compatible with chronic microvascular ischemic disease. Small focus of chronic encephalomalacia of the anteroinferior left frontal lobe. Postcontrast images are motion degraded. No abnormal enhancement identified. IMPRESSION: 1. Multiple vascular territory foci of mostly subcentimeter restricted diffusion noted throughout the cerebrum, brainstem and cerebellum. Findings compatible with acute versus subacute lacunar infarcts, likely from a proximal thromboembolic source. Correlation with echocardiogram recommended. 2. No acute or subacute territorial infarct, midline shift or intracranial hemorrhage. 3. No abnormal enhancement. 4. Involutional changes with chronic microvascular ischemic disease. ACT 112: Negative or not required by law. The above report was generated using voice recognition software. It may contain grammatical, syntax or spelling errors. Electronically signed by: Fredis Teixeira M.D. 08/31/2024 6:15 PM Prior outpatient echo reviewed from Aug 2023: 2D echo report August 28, 2023: LVEF 55-60% Mildly dilated left ventricle. Moderate left ventricular hypertrophy. Mild left atrial dilation. Moderately dilated aortic root. Mildly dilated ascending aorta and arch. Medications Administered Current Inpatient Medications Acetaminophen (Acetaminophen 325 Mg Tab) 650 mg PO Q4H PRN PRN Reason: Pain or Fever Stop: 09/30/24 16:27 Aspirin (Aspirin 81 Mg Ectab) 81 mg PO DAILY [facility] Stop: 10/01/24 08:59 Last Admin: 09/01/24 09:12 Dose: 81 mg Atorvastatin Calcium (Atorvastatin 40 Mg Tab) 40 mg PO QAM [facility] Stop: 10/01/24 08:59 Last Admin: 09/01/24 09:12 Dose: 40 mg Heparin Sodium/Dextrose (Heparin Sodium/Dextrose) 25,000 units in 500 mls @ 30 mls/hr IV .[id number] [facility]; Protocol Stop: 09/30/24 17:59 Last Titration: 09/01/24 07:05 Dose: 1,500 units/hr, 30 mls/hr Pantoprazole Sodium (Pantoprazole 40 Mg Tab) 40 mg PO DAILY [facility] Stop: 10/01/24 08:59 Last Admin: 09/01/24 09:12 Dose: 40 mg Polyethylene Glycol (Polyethylene (Miralax) 17 Gm Pack) 17 gm PO DAILY PRN PRN Reason: Constipation Stop: 09/30/24 16:27 Vibegron (Vibegron 75 Mg Tab) 75 mg PO DAILY [facility] Stop: 10/01/24 08:59 Last Admin: 09/01/24 09:13 Dose: 75 mg (1) Embolic stroke Precerebral and cerebral artery: unspecified cerebral artery Qualified Code(s): I63.40 - Cerebral infarction due to embolism of unspecified cerebral artery (2) Carotid artery stenosis Laterality: right Qualified Code(s): I65.21 - Occlusion and stenosis of right carotid artery
[2024-09-01 10:35] LABS: ANTI-Xa, UFH(UnfractionatedHep 0.57 IU/ml (0.3-0.7)
--- NOTE | 2024-09-01 12:53 | Communication Note ---
Date of Service: September 01, 2024 Neurology Update: Cardiology consultation reviewed and appreciate their input. In reviewing the MRI, while he does have large artery atherosclerotic disease his infarcts are in all vessel territories and are of the same age, therefore must be cardioembolic at least for this occurrence. Would also support proceeding with AMEYA and loop recorder. Okay with DAPT, can d/c heparin. Discussed with hospital medicine.
[2024-09-01] MEDS: EZETIMIBE 10 MG TAB PO SCH (14:14)
--- NOTE | 2024-09-01 14:21 | Anesthesiology Consultation ---
Date of Service September 01, 2024 Assessment & Plan (1) Encounter for pre-operative examination: Chart Review Chart Review: Acceptable Risk for Surgery (AMEYA procedure) History Surgery Operation Date: 09/02/24 07:15 Proposed Procedures p Transesophageal Echo w/Anesthesia - En Carpio DO Height/Weight Height: 5 ft 9 in Weight: 103.5 kg Allergies Allergy/AdvReac Type Severity Reaction Status Date / Time No Known Allergies Allergy Verified 08/31/24 16:29 Medications Home Medications Medication Instructions Recorded Confirmed Last Taken amlodipine 5 mg tablet 5 mg PO QAM 08/31/24 08/31/24 Unknown aspirin 81 mg PO DAILY 08/31/24 08/31/24 Unknown clopidogrel 75 mg tablet 75 mg PO DAILY 08/31/24 08/31/24 Unknown lisinopril 20 1 tab PO DAILY 08/31/24 08/31/24 Unknown mg-hydrochlorothiazide 12.5 mg tablet mirabegron 50 mg tablet,extended 50 mg PO DAILY 08/31/24 08/31/24 Unknown release 24 hr (Myrbetriq) pantoprazole 40 mg tablet,delayed 40 mg PO DAILY 08/31/24 08/31/24 Unknown release Active Medications Generic Name Dose Route Start Last Admin Trade Name Freq PRN Reason Stop Dose Admin Aspirin 81 mg 09/01/24 09:00 09/01/24 09:12 Aspirin 81 Mg Ectab PO 10/01/24 08:59 81 mg DAILY [place] Administration Atorvastatin Calcium 40 mg 09/01/24 09:00 09/01/24 09:12 Atorvastatin 40 Mg Tab PO 10/01/24 08:59 40 mg QAM [place] Administration Ezetimibe 10 mg 09/01/24 12:15 09/01/24 14:14 Ezetimibe 10 Mg Tab PO 10/01/24 12:14 10 mg QAM [place] Administration Heparin Sodium/Dextrose 25,000 units in 500 mls @ 30 mls/hr 08/31/24 18:00 09/01/24 12:05 Heparin Sodium/Dextrose IV 09/30/24 17:59 1,500 units/hr .[id number] [place] 30 mls/hr Administration Protocol 1,500 UNITS/HR Pantoprazole Sodium 40 mg 09/01/24 09:00 09/01/24 09:12 Pantoprazole 40 Mg Tab PO 10/01/24 08:59 40 mg DAILY [place] Administration Vibegron 75 mg 09/01/24 09:00 09/01/24 09:13 Vibegron 75 Mg Tab PO 10/01/24 08:59 75 mg DAILY [place] Administration Past Medical History Medical History (Updated 09/01/24 @ 14:23 by Marcial Espitia MD) Embolic stroke Second degree heart block Hypertension TIA (transient ischemic attack) Past Surgical History Surgical History (Updated 09/01/24 @ 14:18 by Marcial Espitia MD) No pertinent past surgical history Social History Smoking Status: Never smoker Hx Alcohol Use: Yes Alcohol type: hard liquor alcohol intake frequency: 0-2 drinks per day Alcohol Intake Frequency Comment: 1 drink a day at 5pm Hx Substance Use: No Physical Exam Vital Signs Last Vital Signs Temp 36.7 C 09/01/24 11:11 Pulse 73 09/01/24 11:11 Resp 20 09/01/24 11:11 BP 137/82 09/01/24 11:11 Pulse Ox 95 09/01/24 11:11 O2 Del Method Room Air 09/01/24 11:11 Testing Laboratory Results 09/01/24 01:34 09/01/24 01:34 PT 11.2 Seconds (9.0-12.0) 08/31/24 14:04 INR 1.0 (0.9-1.1) 08/31/24 14:04 APTT 27 Seconds (21-31) 08/31/24 14:04 Hemoglobin A1c 5.8 % (4.5-5.6) H 09/01/24 01:34 Electrocardiogram Date: 09/01/24 Findings: + NSR @ (66) and + RBBB (and left anterior fascicular block) Echocardiogram Date: 09/01/24 EF: 55-60 LV Function: normal Valvular Disease: + AI (mild to moderate) aortic root dilated
[2024-09-01 15:13] LABS: Troponin I High Sensitivity 753.6 pg/ml (0-20)
[2024-09-01 15:47] LABS: Thyroid Stimulating Hormone 1.195 uIu/ml (0.300-4.500)
--- NOTE | 2024-09-01 16:24 | Ultrasound Report ---
BILATERAL LOWER EXTREMITY VENOUS DOPPLER CLINICAL HISTORY: CVA; recent travel COMPARISON STUDY: No previous studies for comparison. TECHNIQUE: Sonography of the deep venous system of the bilateral lower extremities was performed. Co mpression and augmentation were evaluated. FINDINGS: The bilateral common femoral, superficial femoral and popliteal veins were compressible. A ugmentation was normal. Flow was shown within the deep calf vessels. IMPRESSION: No evidence of deep venous thrombus within the bilateral lower extremities. ACT 112: Negative or not required by law. Electronically signed by: Martin Wesley M.D. 09/01/2024 4:23 PM
[2024-09-02] MEDS: [UNRECOGNIZED DRUG - REMARK] ONE (05:30)
[2024-09-02 05:44] LABS: Basophils # (auto) 0.07 K/uL (0.00-0.20); Basophils % (auto) 0.9 %; Eosinophils # (auto) 0.33 K/uL (0.00-0.50); Eosinophils % (auto) 4.1 %; Hematocrit (blood only) 40.9 % (42.0-52.0); Immature Granulocytes # (auto) 0.02 K/uL (0.01-0.20); Immature Granulocytes % (auto) 0.2 %; Lymphocytes # (auto) 1.77 K/uL (1.20-3.40); Mean Corpuscular Hemoglobin 29.4 pg (25.0-34.0); Mean Corpuscular Hgb Conc 34.2 g/dL (32.0-36.0); Mean Corpuscular Volume 85.7 fL (80.0-100.0); Mean Platelet Volume 11.5 fL (9.4-12.4); Monocytes # (auto) 0.89 K/uL (0.11-0.59); Neutrophils # (auto) 4.98 K/uL (1.40-6.50); Neutrophils % (auto) 61.8 %; Platelet Count 240 K/uL (130-400); RDW Coefficient of Variation 14.3 % (11.5-14.5); RDW Standard Deviation 44.5 fL (36.4-46.3); Red Blood Count 4.77 M/uL (4.70-6.10); White Blood Count 8.06 K/ul (4.8-10.8)
[2024-09-02 05:59] LABS: BUN Creatinine Ratio 13.7 (10-20); Calcium 8.7 mg/dl (8.6-10.3); Creatinine Clr Calc Pharmacy 67.3 ml/min; Potassium 3.9 mmol/L (3.5-5.1)
[2024-09-02 06:08] LABS: ANTI-Xa, UFH(UnfractionatedHep 0.59 IU/ml (0.3-0.7); Troponin I High Sensitivity 790.6 pg/ml (0-20)
--- NOTE | 2024-09-02 07:34 | Hospitalist Progress Note ---
Date of Service September 02, 2024 Assessment & Plan (1) Stroke-like symptoms: (2) Elevated troponin I level: Plan Roldan Raphael is an 79y/o M with PMHx significant for hypertensive heart disease without evidence of congestive heart failure, history of cryptogenic CVA/TIA in 2017 chronically treated with DAPT, moderate OSVALDO stenosis, underlying conduction disease (right BBB, left anterior fascicular block, first-degree AVB), moderate aortic root enlargement, mild ascending aortic enlargement, HLD, GERD, h/o prostate cancer s/p radiation therapy, urinary incontinence and HTN who presented to the ED for evaluation of stroke-like symptoms. Patient was made a stroke alert on arrival to the ED. Telestroke was consulted and recommended against TNK use given that his last known well was around 12PM this afternoon. Stroke-Like Symptoms & High-Grade Right Internal Carotid Artery Stenosis: Acute H/O TIA and known high grade R ICA stenosis Vitals remain stable. BP: 166/[address] negative for ICH, midline shift or SDH. Chronic microvascular ischemic d isease in addition to an age-indeterminate right cerebellar lacunar infarct. Head and neck CTA imaging revealed high-grade stenosis (80%) of the proximal cervical segment right ICA secondary to prominent atherosclerotic plaque. Brain MRI Multiple vascular territory foci of mostly subcentimeter restricted diffusion noted throughout the cerebrum, brainstem and cerebellum. Findings compatible with acute versus subacute lacunar infarcts, likely from a proximal thromboembolic source. NO ICH, SDH, midline shift Lyme (-) ECHO EF 55-60%, mild LVH, mild to moderate AR PT/OT/ST Routine neurochecks Was not on a lipid lowering agent; started on atorvastatin on admission lipid panel TG 59, LDL 71, HDL 47, Hgb A1c 5.6 Zetia added as adjuvant therapy to atorvastatin on 09/01 Elevated Troponin I Level, Hypertensive Heart Disease & Conduction Disease: Troponin 503 on presentation--->806--> 504 this AM, trending upward again; 790 this am 09/02 Initial EKG showed sinus rhythm with marked sinus arrhythmia with first-degree AV block and bifascicular block. CXR revealed cardiomegaly without acute process. Recently established with [employer] [facility] 08/12 [Dr. Carpio]. Known history of first-degree AVB, RBBB and left anterior fascicular block and LVH. ECHO today EF 55-60%, mild LVH, mild to moderate AR Keep LDL < 55; TG 59, LDL 71, HDL 47 from 09/01 Zetia 10 mg added on 09/01 for adjuvant therapy AMEYA ruled out intracardiac thrombus and aortic atheroma Chest CT negative for PE CK pending as differential for elevated trop EP lab do implant loop monitor tomorrow 09/03 Vascular saw patient; appreciate recommendations. Pt elects to proceed with R TCAR. Recommend office visit in 3-4 weeks to discuss further. Recommend pt remain on DAPT and statin in preparation for TCAR. Per cardiology NO further trop trending; will need to follow OPT cards on DC for possible CTA Restarted Plavix Other Chronic Medical Conditions: GERD, urinary incontinence --> Can continue home medications for these specific conditions. Disposition: PCP: Snow Aguayo DO Code Status: FULL CODE DVT Prophylaxis: Teds/SCDs Disposition: Admit to PCU/Telemetry Possible DC 09/03 I spent a total of 56 minutes coordinating, documenting, and providing care for this patient excluding time spent in the performance of separately billed services. This included personally reviewing all current laboratories and imaging studies, medical reconciliation, outpatient chart review and discussion with specialists. Admission and Anticipated Discharge Date Admission Date: August 31, 2024 Supervising Physician Co-Signing Physician Notes I have seen and discussed the case with the collaborating advanced practitioner. I agree with the above PN. I have reviewed and confirmed the patients medical history, the findings on physical examination, and the patients diagnosis and treatment plan with Isabelle BRENNAN and agree with the information documented. Neuro suspects ?cardioemboli AMEYA without thrombus, resume asa/plavix Plan for loop tomorrow No further troponin trending--asymptomatic, will need cards OP follow up for coronary CTA Outpatient script for PT/OT recommended on discharge I spent a total of 5 minutes coordinating, documenting, and providing care for this patient excluding time spent in the performance of separately billed services. All of the aforementioned completed outside of collaborating with the assigned advanced practitioner for a full treatment plan. I have reviewed the advanced practitioner's documentation, and I agree with, and take responsibility for the plan of care Subjective Pt sitting in his hospital bed in no apparent distress. Pt denies chest pain, palpitations, SOB, N/V/D, hematochezia. AMEYA performed this AM. See below for results. Please see A/P for further details. Review of Systems Review of Systems: Neuro: (-) Falls, trauma, slurred speech HEENT: (-) LOPES, dizziness, dysphagia, visual or auditory changes CV: (-) CP, palpitations, swelling Resp: (-) SOB GI: (-) appetite changes, N/V/D, bowel changes : (-) urinary changes Skin: (-) rashes Psych: (-) anxiety, depression Physical Exam Physical Exam: Neuro: AAOx4, PERRLA, no aphagia, memory changes, CNII-XII grossly intact HEENT: head normocephalic, moist mucus membranes CV: S1/S2, (-) M/G/R, (-) edema, cap refill < 3 seconds Resp: Lungs CTA in all harris. On RA GI: Abdomen S/NT/ND, Ax4 bowel sounds, (-) CVA tenderness Musculoskeletal: 5/5 B/L UE strength, 5/5 B/L LE strength. No gait disturbance Skin: (-) rashes , (-) erythema. Psych: euthymic mood Results & Data Results & Data Vital Signs (Past 12 Hours) Vital Signs Temp Pulse Pulse Resp BP Pulse Ox O2 Del Method 09/02/24 07:05 36.9 C 72 12 147/86 H 95 Room Air 09/02/24 02:39 36.7 C 69 18 155/88 H 93 Room Air 09/02/24 00:43 94 H 09/01/24 22:37 36.8 C 71 18 127/82 95 Room Air 09/01/24 19:38 36.6 C 82 18 150/92 H 94 Room Air Laboratory Results Short CBC 09/02/24 Range/Units 05:30 WBC 8.06 (4.8-10.8) K/ul Hgb 14.0 (14.0-18.0) g/dl Hct 40.9 L (42.0-52.0) % Plt Count 240 (130-400) K/uL BMP 09/02/24 05:30 Sodium 136 Potassium 3.9 Chloride 104 Carbon Dioxide 26 BUN 14 Creatinine 1.02 Glucose 103 H Calcium 8.7 Diagnostic Findings Chest CTA 09/02/24 09:50 CT ANGIOGRAPHY OF THE CHEST, PULMONARY EMBOLUS PROTOCOL CLINICAL HISTORY: Shortness of breath. Evaluate for pulmonary embolus. COMPARISON STUDY: Chest radiograph August 31, 2024. TECHNIQUE: Following IV administration of 112 mL of Optiray, helical axial images of the chest were obtained utilizing the pulmonary embolus protocol. Maximal intensity projections and sagittal and coronal reformats were viewed on an independent 3D workstation. IV contrast was administered without complication. Automated exposure control was utilized for the study. A dose lowering technique was utilized adhering to the principles of ALARA. CT DOSE: 867.17 mGy.cm FINDINGS: No pulmonary emboli are identified. The heart is moderately enlarged. There is mild aortic valvular calcification moderate mitral annular calcification. There is no pericardial effusion. No enlarged axillary, mediastinal or hilar lymph nodes are present. Ascending aorta is mildly dilated, measuring 4.3 cm at the level the main pulmonary artery. Opacification of the thoracic aorta is suboptimal but no dissection is identified. There is tortuosity and mild dilatation of the descending thoracic aorta. No pneumothorax or pleural effusion. Lungs are suboptimally assessed due to motion artifact. No consolidation to suggest pneumonia. No suspicious pulmonary nodules. Ground glass opacities favor atelectasis. A water attenuation 3.4 cm left upper pole renal lesion favors a cyst. IMPRESSION: 1. No pulmonary emboli identified. 2. No consolidation to suggest pneumonia. Groundglass opacities suggestive of atelectasis. 3. Moderate cardiomegaly. Mild dilatation of the ascending aorta, measuring 4.3 cm. ACT 112: Negative or not required by law. Electronically signed by: Martin Wesley M.D. 09/02/2024 11:18 AM
[2024-09-02] MEDS ORDERED: PROPOFOL IV EMULSION 10 MG/ML 20 ML VIAL IV ONE ×2 (08:09)
[2024-09-02] MEDS ORDERED: LIDOCAINE 2% 2 ML VIAL/AMP(20MG/ML) INFIL ONE (08:09)
[2024-09-02] MEDS ORDERED: ePHEDrine sulfate 50 MG/5 ML SYR ONE (08:09)
--- NOTE | 2024-09-02 08:13 | Cardiology Progress Note ---
Date of Service September 02, 2024 Assessment & Plan (1) Stroke-like symptoms: (2) Elevated troponin I level: Plan 79 yo man presenting with visual disturbance + difficulty with speech + right hand numbness + gait instability * Stroke alert called on admission * Brain MRI - widely-scattered embolic CVA * No Thrombolytics given as Sx were resolving * Prior TIA * Was on ASA and Plavix * Started on IV Heparin * Neuro concerned about cardio-embolic stroke * Troponin elevation - peak 806 * EKG - no ischemic changes * Transthoracic ECHO - 09/01/2024 - Normal LVEF - no WMA - no interatrial shunt - no vegetation * Had an implantable loop monitor in the past - unclear * Right Carotid - High Grade Stenosis; Left Carotid <50% Plans: * Continue ASA * Consider continuation of DAPT until clear indiction for systemic anticoagulation * LDL 71 - + Carotid Disease * Goal LDL <55 * Continue Lipitor 40 mg po per day * Continue Zetia 10 mg po per day * Considering underlying conduction system disease (trifasicular block) - occasional dropped beats * Implantable Loop Monitor recommended - plans for implantation on 09-03-2024 (Pt does not need to be NPO for this procedure) * AMEYA completed 09-02-2024 - No intracardiac thrombi or vegetations noted - aortic atheromata noted - non mobile * Would review MRI with Neurology to ensure that Cerebrovascular Disease is not playing a role * LE Duplex to excluded DVT - NEGATIVE * CT PE - negative for PE * No hypercoaguable hx * Troponin elevated and were trending downward - repeat with increased values. Patient is completely asymptomatic. Would not check additional troponin values * Will need a coronary evaluation at some point - Coronary CTA as an outpt [facility] Admission and Anticipated Discharge Date Admission Date: August 31, 2024 Subjective Events Overnight: * As per , difficulty with memory Subjective * No complaints Review of Systems Review of Systems: All systems reviewed & are unremarkable except as noted in HPI & below Physical Exam Physical Exam: Overweight No elevation in JVP S1S2 CTA B No C/C/E Warm and perfusing Results & Data Vital Signs (Past 12 Hours) Vital Signs Temp Pulse Pulse Resp BP Pulse Ox O2 Del Method 09/02/24 07:05 36.9 C 72 12 147/86 H 95 Room Air 09/02/24 02:39 36.7 C 69 18 155/88 H 93 Room Air 09/02/24 00:43 94 H 09/01/24 22:37 36.8 C 71 18 127/82 95 Room Air Laboratory Results Cardiac Enzymes 09/01/24 09/01/24 09/02/24 Range/Units 07:55 14:14 05:30 Troponin I High Sens 569.4 H* D 753.6 H* D 790.6 H* (0-20) pg/ml CBC 09/02/24 Range/Units 05:30 WBC 8.06 (4.8-10.8) K/ul RBC 4.77 (4.70-6.10) M/uL Hgb 14.0 (14.0-18.0) g/dl Hct 40.9 L (42.0-52.0) % Plt Count 240 (130-400) K/uL Neut # (Auto) 4.98 (1.40-6.50) K/uL Lymph # (Auto) 1.77 (1.20-3.40) K/uL Rogers # (Auto) 0.89 H (0.11-0.59) K/uL Eos # (Auto) 0.33 (0.00-0.50) K/uL Baso # (Auto) 0.07 (0.00-0.20) K/uL Comprehensive Metabolic Panel 09/02/24 Range/Units 05:30 Sodium 136 (136-145) mmol/L Potassium 3.9 (3.5-5.1) mmol/L Chloride 104 (98-107) mmol/L Carbon Dioxide 26 (21-32) mmol/L BUN 14 (6-23) mg/dl Creatinine 1.02 (0.6-1.4) mg/dl Glucose 103 H (70-99(Fasting)) mg/dl Calcium 8.7 (8.6-10.3) mg/dl Intake and Output 09/01/24 09/02/24 09/02/24 22:59 06:59 14:59 Intake Total 217 / 1088.5 283 / 1088.5 Balance 217 / 1088.5 283 / 1088.5 Intake: IV 217 / 788.5 283 / 788.5 Heparin Sodium/Dextrose 25,000 217 / 788.5 283 / 788.5 units In 500 ml @ 1,500 UNITS/ HR 30 mls/hr IV .[id number] [facility] Rx #:[id number] Other: Weight 103 kg 103 kg Weight Measurement Method Built in [facility] Patient Weight 09/03/24 06:59 Weight 103 kg Diagnostic Findings LE US: 09-01-2024 IMPRESSION: No evidence of deep venous thrombus within the bilateral lower extremities. CT PE: 09-02-2024 IMPRESSION: 1. No pulmonary emboli identified. 2. No consolidation to suggest pneumonia. Groundglass opacities suggestive of atelectasis. 3. Moderate cardiomegaly. Mild dilatation of the ascending aorta, measuring 4.3 cm. Medications Administered Current Inpatient Medications Acetaminophen (Acetaminophen 325 Mg Tab) 650 mg PO Q4H PRN PRN Reason: Pain or Fever Stop: 09/30/24 16:27 Aspirin (Aspirin 81 Mg Ectab) 81 mg PO DAILY [facility] Stop: 10/01/24 08:59 Last Admin: 09/01/24 09:12 Dose: 81 mg Atorvastatin Calcium (Atorvastatin 40 Mg Tab) 40 mg PO QAM [facility] Stop: 10/01/24 08:59 Last Admin: 09/01/24 09:12 Dose: 40 mg Ezetimibe (Ezetimibe 10 Mg Tab) 10 mg PO QAM [facility] Stop: 10/01/24 12:14 Last Admin: 09/01/24 14:14 Dose: 10 mg Heparin Sodium/Dextrose (Heparin Sodium/Dextrose) 25,000 units in 500 mls @ 30 mls/hr IV .[id number] [facility]; Protocol Stop: 09/30/24 17:59 Last Admin: 09/02/24 05:31 Dose: Not Given Pantoprazole Sodium (Pantoprazole 40 Mg Tab) 40 mg PO DAILY [facility] Stop: 10/01/24 08:59 Last Admin: 09/01/24 09:12 Dose: 40 mg Polyethylene Glycol (Polyethylene (Miralax) 17 Gm Pack) 17 gm PO DAILY PRN PRN Reason: Constipation Stop: 09/30/24 16:27 Vibegron (Vibegron 75 Mg Tab) 75 mg PO DAILY [facility] Stop: 10/01/24 08:59 Last Admin: 09/01/24 09:13 Dose: 75 mg
--- NOTE | 2024-09-02 08:48 | Anesthesiology Progress Note ---
Date of Service September 02, 2024 Anesthesia Post Procedure Vital Signs Vital Signs: Temp Pulse Pulse Resp BP Pulse Ox O2 Del Method 09/02/24 08:30 75 14 123/86 94 Room Air 09/02/24 08:15 65 14 116/80 97 Oxymask 09/02/24 08:05 71 12 128/79 94 Oxymask 09/02/24 07:05 98.4 F 72 12 147/86 H 95 Room Air 09/02/24 02:39 98.1 F 69 18 155/88 H 93 Room Air 09/02/24 00:43 94 H 09/01/24 22:37 98.2 F 71 18 127/82 95 Room Air 09/01/24 19:38 97.9 F 82 18 150/92 H 94 Room Air 09/01/24 16:07 75 09/01/24 15:13 97.9 F 60 18 142/87 H 95 Room Air 09/01/24 11:11 98.1 F 73 20 137/82 95 Room Air O2 Flow Rate 09/02/24 08:30 09/02/24 08:15 7 09/02/24 08:05 7 09/02/24 07:05 09/02/24 02:39 09/02/24 00:43 09/01/24 22:37 09/01/24 19:38 09/01/24 16:07 09/01/24 15:13 09/01/24 11:11 Transfer of Care Handoff Completed per policy Notes Mental Status: alert / awake / arousable and participated in evaluation Patient Amnestic to Procedure: Yes Nausea / Vomiting: adequately controlled Pain: adequately controlled Airway Patency, RR, SpO2: stable & adequate BP & HR: stable & adequate Hydration State: stable & adequate Anesthetic Complications: no major complications apparent and Pt Satisfied with anesthetic care
[2024-09-02] MEDS: OPTIRAY 320 125ml IV ONE (10:50)
[2024-09-02] MEDS: BENZOCAINE/TETRACAIN/BUTAM 50 APPLN/5 GM CAN EXT ONE (11:16)
--- NOTE | 2024-09-02 11:20 | CT Scan Report ---
CT ANGIOGRAPHY OF THE CHEST, PULMONARY EMBOLUS PROTOCOL CLINICAL HISTORY: Shortness of breath. Evaluate for pulmonary embolus. COMPARISON STUDY: Chest radiograph August 31, 2024. TECHNIQUE: Following IV administration of 112 mL of Optiray, helical axial images of the chest were o btained utilizing the pulmonary embolus protocol. Maximal intensity projections and sagittal and cor onal reformats were viewed on an independent 3D workstation. IV contrast was administered without co mplication. Automated exposure control was utilized for the study. A dose lowering technique was ut ilized adhering to the principles of ALARA. CT DOSE: 867.17 mGy.cm FINDINGS: No pulmonary emboli are identified. The heart is moderately enlarged. There is mild aortic valvular calcification moderate mitral annular calcification. There is no pericardial effusion. No e nlarged axillary, mediastinal or hilar lymph nodes are present. Ascending aorta is mildly dilated, me asuring 4.3 cm at the level the main pulmonary artery. Opacification of the thoracic aorta is subopti mal but no dissection is identified. There is tortuosity and mild dilatation of the descending thorac ic aorta. No pneumothorax or pleural effusion. Lungs are suboptimally assessed due to motion artifact . No consolidation to suggest pneumonia. No suspicious pulmonary nodules. Ground glass opacities favo r atelectasis. A water attenuation 3.4 cm left upper pole renal lesion favors a cyst. IMPRESSION: 1. No pulmonary emboli identified. 2. No consolidation to suggest pneumonia. Groundglass opacities suggestive of atelectasis. 3. Moderate cardiomegaly. Mild dilatation of the ascending aorta, measuring 4.3 cm. ACT 112: Negative or not required by law. Electronically signed by: Martin Wesley M.D. 09/02/2024 11:18 AM
[2024-09-02] MEDS: CLOPIDOGREL BISULFATE 75 MG TAB PO SCH (13:08)
--- NOTE | 2024-09-02 15:45 | Consultation ---
Date of Consultation September 02, 2024 Assessment & Plan (1) Carotid stenosis, right: Pt with significant R ICA stenosis of at least 80%. While this is not likely the source of his current CVA, pt is at increased risk of CVA due to the severity of stenosis. Pt imaging reviewed by Dr Forbes, who also saw the pt today. Recommends pt undergo CEA vs TCAR electively in near future to reduce risk of CVA. Both procedures discussed at length with pt and family present. Pt elects to proceed with R TCAR. Recommend office visit in 3-4 weeks to discuss further. Recommend cardiology continue workup for optimization prior to any procedure. Recommend pt remain on DAPT and statin in preparation for TCAR. Pt and family agreeable to this plan. Patient was seen, examined, and chart reviewed. Agree with exam and treatment plan of the Vascular PA. History of Present Illness Reason for Consultation: R ICA stenosis Attending Physician: Sandy Lane MD History of Present Illness 79 yo m with hx of CVA, HTN, CHF, CAD, GERD, admitted with CVA sx, seen in consultation today for R ICA stenosis. Pt had sudden onset of slurred speech, balance difficulty, tingling in BUE which started 2 days ago and lasted a few hrs. Sx then seemed to resolve. Was eval by telestroke, but no tPA recommended. CTA neck demonstrates at least 80% R ICA stenosis. MRI demonstrates multiple vessel territory infarcts. Has been eval for sources, including TTE, AMEYA, and BLE venous US for DVT. All testing has been negative for embolism source. Cardiology planning on implantable loop recorder tomorrow. Pt with hx of CVA in 2017 as well, no source was identified at that time. Pt remains asymptomatic, without any R hemispheric lateralizing sx. Denies LOPES, fever, chest pain, SOB, palpitations, abd pain, N/V, rest pain, claudication, other complaints. Allergies Allergy/AdvReac Type Severity Reaction Status Date / Time No Known Allergies Allergy Verified 08/31/24 16:29 Home Medications Medication Instructions Recorded Confirmed Type amlodipine 5 mg tablet 5 mg PO QAM 08/31/24 08/31/24 History aspirin 81 mg PO DAILY 08/31/24 08/31/24 History clopidogrel 75 mg tablet 75 mg PO DAILY 08/31/24 08/31/24 History lisinopril 20 1 tab PO DAILY 08/31/24 08/31/24 History mg-hydrochlorothiazide 12.5 mg tablet mirabegron 50 mg tablet,extended 50 mg PO DAILY 08/31/24 08/31/24 History release 24 hr (Myrbetriq) pantoprazole 40 mg tablet,delayed 40 mg PO DAILY 08/31/24 08/31/24 History release Patient History Medical History Embolic stroke Second degree heart block Hypertension TIA (transient ischemic attack) Surgical History No pertinent past surgical history Social History Smoking Status: Never smoker Hx Alcohol Use: Yes Alcohol type: hard liquor Hx Substance Use: No Preferred Language: Austrian Communication Ability: Effective Needle Punch Operator Required: No Beliefs That Will Affect Care: None Current Living Situation: Spouse Feels Safe at Home: Yes Assistive Devices: None Review of Systems Review of Systems: All systems reviewed & are unremarkable except as noted in HPI & below Physical Exam Constitutional: WD/WN, vitals as above healthy appearing, cooperative and comfortable; not in distress Neck: trachea midline Respiratory: normal respiratory effort, lungs clear to auscultation Auscultation: + diminished lung sounds Cardiovascular: Rate/Rhythm: regular rate and regular rhythm Vessels: posterior tibial pulses present, dorsalis pedis pulses present and radial pulses present; + abnormal peripheral pulses Extremities: normal capillary refill; no edema Gastrointestinal (Abdomen): Inspection/Auscultation: abdomen normal to inspection and normal bowel sounds Percussion/Palpation: abdomen soft; abdomen nontender Musculoskeletal: no cyanosis or clubbing, extremities motor strength 5/5 Skin: no rashes, warm and dry Neurologic: moves all extremities and awake; no focal motor deficits and not confused Psychiatric: A+Ox3, euthymic affect Results & Data Vital Signs (Past 12 Hours) Vital Signs Temp Pulse Pulse Resp BP Pulse Ox O2 Del Method 09/02/24 14:51 74 09/02/24 13:18 73 09/02/24 11:19 36.5 C 68 20 155/97 H 95 Room Air 09/02/24 09:23 36.6 C 69 17 132/83 93 Room Air 09/02/24 08:30 75 14 123/86 94 Room Air 09/02/24 08:15 65 14 116/80 97 Oxymask 09/02/24 08:05 71 12 128/79 94 Oxymask 09/02/24 07:05 36.9 C 72 12 147/86 H 95 Room Air O2 Flow Rate 09/02/24 14:51 09/02/24 13:18 09/02/24 11:19 09/02/24 09:23 09/02/24 08:30 09/02/24 08:15 7 09/02/24 08:05 7 09/02/24 07:05
[2024-09-03 07:10] LABS: Hemoglobin 14.4 g/dl (14.0-18.0); Mean Corpuscular Hgb Conc 33.5 g/dL (32.0-36.0); Mean Corpuscular Volume 86.5 fL (80.0-100.0); Mean Platelet Volume 11.4 fL (9.4-12.4); Platelet Count 235 K/uL (130-400); RDW Coefficient of Variation 14.3 % (11.5-14.5); RDW Standard Deviation 45.3 fL (36.4-46.3); Red Blood Count 4.97 M/uL (4.70-6.10)
[2024-09-03 07:27] LABS: BUN Creatinine Ratio 13.8 (10-20); Calcium 8.9 mg/dl (8.6-10.3); Creatinine Clr Calc Pharmacy 62.9 ml/min; Potassium 3.7 mmol/L (3.5-5.1)
--- NOTE | 2024-09-03 08:10 | Electrocardiogram Report ---
Test Reason : Blood Pressure : */* mmHG Vent. Rate : 59 BPM Atrial Rate : 72 BPM P-R Int : 310 ms QRS Dur : 156 ms QT Int : 458 ms P-R-T Axes : 12 -59 -11 degrees QTcB Int : 453 ms Sinus rhythm with 2nd degree A-V block (Mobitz II) with occasional Premature ventricular complexes Right bundle branch block Left anterior fascicular block Left ventricular hypertrophy Abnormal ECG When compared with ECG of 01-Sep-2024 05:30, Sinus rhythm is now with 2nd degree A-V block (Mobitz II) Confirmed by Shaun Hyde ([id number]) on 09/03/2024 8:09:55 AM Referred By: REFERRED SELF Confirmed By: Shaun Hyde
[2024-09-03] MEDS: lisinopril 2.5 MG TAB PO SCH (09:19)
--- NOTE | 2024-09-03 11:01 | Hospitalist Progress Note ---
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 Patient was made a stroke alert on arrival to the ED. Telestroke was consulted and recommended against TNK use given that his last known well was around 12PM this afternoon. Second Degree Heart Block (Mobitz II): Acute Known history of first-degree AVB, RBBB and left anterior fascicular block and LVH. 1016: 0440 this morning telemetry showed difference in P wave and QRS; confirmed second-degree AVB Mobitz 2. I met with patient and his this morning and sara visual pictures and discussed verbally description of different heart blocks. External pacer pads in place placed this a.m. Cardiology aware and will be having conversation with regards to possible pacemaker placement this afternoon. Patient ate breakfast this morning will keep n.p.o. for remainder of day. Embolic CVA & High-Grade Right Internal Carotid Artery Stenosis: Acute H/O TIA and known high grade R ICA stenosis BP: BP ranging 130-[address] negative for ICH, midline shift or SDH. Chronic microvascular ischemic disease in addition to an age-indeterminate right cerebellar lacunar infarct. Head and neck CTA imaging revealed high-grade stenosis (80%) of the proximal cervical segment right ICA secondary to prominent atherosclerotic plaque. Brain MRI Multiple vascular territory foci of mostly subcentimeter restricted diffusion noted throughout the cerebrum, brainstem and cerebellum. Findings compatible with acute versus subacute lacunar infarcts, likely from a proximal thromboembolic source. No ICH, SDH, midline shift Lyme (-) ECHO EF 55-60%, mild LVH, mild to moderate AR PT/OT/ST Was not on a lipid lowering agent; started on atorvastatin on admission lipid panel TG 59, LDL 71, HDL 47, Hgb A1c 5.6 Zetia added as adjuvant therapy to atorvastatin on 09/01 Continue aspirin, Plavix as recommended by neurology Needs follow-up with neurology in 4 to 6 weeks and vascular surgery in 3 to 4 weeks on discharge Needs transcarotid artery revascularization as outpatient Demand Ischemia Elevated Troponin I Level, Hypertensive Heart Disease & Conduction Disease: Troponin 503 on presentation--->806--> 504 this AM, trending upward again; 790 this am 09/02 Initial EKG showed sinus rhythm with marked sinus arrhythmia with first-degree AV block and bifascicular block. CXR cardiomegaly without acute process. [facility]Dr. Carpio[facility] Known history of first-degree AVB, RBBB and left anterior fascicular block and LVH. ECHO today EF 55-60%, mild LVH, mild to moderate AR Keep LDL < 55; TG 59, LDL 71, HDL 47 from 09/01 Zetia 10 mg added on 09/01 for adjuvant therapy AMEYA ruled out intracardiac thrombus and aortic atheroma Chest CT negative for PE Normal CK Loop monitored cancelled due to patient going into 2nd degree AVB (Mobitz II) Started on lisinopril for better control of blood pressure Carotid artery stenosis: Acute Head/neck CTA on 08/31: High-grade stenosis of the proximal cervical segment right ICA secondary to prominent atherosclerotic plaque. No aneurysm, dissection or arterial occlusion identified within the head or neck. Vascular saw patient on 09/02; appreciate recommendations. Pt planning to proceed with R TCAR. Recommend office visit in 3-4 weeks to discuss further. Recommend pt remain on DAPT and statin in preparation for TCAR. Restarted Plavix on 09/02 Other Chronic Medical Conditions: GERD, urinary incontinence --> Can continue home medications for these specific conditions. Disposition: PCP: Snow Aguayo DO Code Status: FULL CODE DVT Prophylaxis: Teds/SCDs Disposition: Admit to PCU/Telemetry I spent a total of 58 minutes coordinating, documenting, and providing care for this patient excluding time spent in the performance of separately billed services. This included personally reviewing all current laboratories and imaging studies, medical reconciliation, outpatient chart review and discussion with specialists. Admission and Anticipated Discharge Date Admission Date: August 31, 2024 Supervising Physician Co-Signing Physician Notes I have seen and examined the patient at bedside. Discussed the case with the collaborating advanced practitioner. I agree with the documentation as above. I have reviewed and confirmed the patients medical history, thefindings on physical examination, and the patients diagnosis and treatment plan with Isabelle BRENNAN and agree with the information documented. Note has been edited as needed. Plan for pacemaker placement today for second-degree heart block Lisinopril added for better blood pressure control Likely discharge home tomorrow if stable Needs follow-up with cardiology, vascular surgery, neurology on discharge Subjective Pt sitting in his hospital bed in no apparent distress. Pt denies chest pain, visual changes, palpitations, SOB, N/V/D, hematochezia. Per tele review, patient went into 2nd degree AVB (Mobitz II). No chest pain/SOB with event. External pacer pads in place. Heart rate overnight ranging 58-85 Discussed with cardiology and plan shifting from internal loop recorder this afternoon to possible placement of pacemaker. Made patient n.p.o. for remainder of day. Please see A/P for further details. Review of Systems Review of Systems: Neuro: (-) Falls, trauma, slurred speech HEENT: (-) LOPES, dizziness, dysphagia, visual or auditory changes CV: (-) CP, palpitations, swelling Resp: (-) SOB GI: (-) appetite changes, N/V/D, bowel changes : (-) urinary changes Skin: (-) rashes Psych: (-) anxiety, depression Physical Exam Physical Exam: Neuro: AAOx4, PERRLA, no aphagia, memory changes, CNII-XII grossly intact HEENT: head normocephalic, moist mucus membranes CV: Irregularly Irregular, (-) M/G/R, (-) edema, cap refill < 3 seconds Resp: Lungs CTA in all harris. On RA GI: Abdomen S/NT/ND, Ax4 bowel sounds, (-) CVA tenderness Musculoskeletal: 5/5 B/L UE strength, 5/5 B/L LE strength. No gait disturbance Skin: (-) rashes , (-) erythema. Psych: euthymic mood Results & Data Results & Data Vital Signs (Past 12 Hours) Vital Signs Temp Pulse Pulse Resp BP BP Pulse Ox 09/03/24 10:09 85 09/03/24 10:09 09/03/24 07:22 36.7 C 66 18 160/95 H 95 09/03/24 04:15 70 09/03/24 03:34 36.6 C 63 19 168/98 H 94 09/02/24 23:35 59 L O2 Del Method 09/03/24 10:09 09/03/24 10:09 Room Air 09/03/24 07:22 Room Air 09/03/24 04:15 09/03/24 03:34 Room Air 09/02/24 23:35 Laboratory Results Short CBC 09/03/24 Range/Units 06:11 WBC 9.10 (4.8-10.8) K/ul Hgb 14.4 (14.0-18.0) g/dl Hct 43.0 (42.0-52.0) % Plt Count 235 (130-400) K/uL BMP 09/03/24 06:11 Sodium 139 Potassium 3.7 Chloride 104 Carbon Dioxide 26 BUN 15 Creatinine 1.09 Glucose 88 Calcium 8.9 (4) Carotid artery stenosis Laterality: right Qualified Code(s): I65.21 - Occlusion and stenosis of right carotid artery
--- NOTE | 2024-09-03 12:10 | Neurology Progress Note ---
Date of Service September 03, 2024 Assessment & Plan (1) Embolic stroke: Roldan Raphael is an 79 yo M presenting with widely scattered embolic stroke concerning for cardioembolism, not related to the R ICA, though R ICA stenosis is present. Noted testing results, continue to suspect cardioembolism though no thrombus seen. Alternatives include mitral annular calcification and the aortic atheroma. -- Agree with aspirin/plavix -- Agree with lipitor 40mg daily -- Pacemaker plan today -- TCAR plan per vascular surgery -- Patient can follow-up with neurology in 4-6 weeks, we will sign off, please contact us with any questions Subjective Telehealth Information I performed this visit using a real-time telehealth connection between my location and the patients location ([facility]). After connecting through interactive tele-video, patient was identified by name and date of and/or wristband check.Patient (or authorized healthcare artist representative) was informed that this was a telemedicine visit and it was being conducted confidentially over secure lines. My office door was closed and no one else was present in the room with me.Patient (or authorized healthcare artist representative) provided consent to proceed with the visit, expressed an understanding of privacy and security of the telemedicine visit, and gave permission to have a hospital artist representative in the room in order to assist with the visit and to conduct portions of the visit, as needed. I informed the patient (or authorized healthcare artist representative) that I reviewed their record and presented the opportunity for them to ask any questions regarding the visit today. The patient agreed to participate. Mr. Raphael is an 79 yo M initially presenting with R arm numbness found to have widely embolic ischemic stroke. He has not had any symptom fluctuation since being seen on 08/31. Consult notes reviewed with plan for pacemaker for heart block this afternoon and TCAR of the R ICA stenosis in the future. His was present at bedside, all questions answered. Physical Exam Neurological Examination: Mental Status: Awake and alert. Oriented to person, place, and time. Fluent with mild dysarthria. Comprehension intact. Affect appropriate. Cranial Nerves: II: Reads NIHSS cards, pupils 3/3 to 2/2, harris grossly intact. III/IV/: Versions intact without nystagmus, no gaze preference. V: Facial sensation symmetric to light touch VII: Facial expression symmetric VIII: Hearing intact to voice IX/X: Palate elevates symmetrically XI: Shoulder shrug symmetric XII: Tongue midline Motor: Strength was symmetric and antigravity throughout. Pronator drift was absent. There were no abnormal movements. Sensory: Sensation to light touch was intact. Reflexes: Unable to assess over telemedicine Results & Data Vital Signs (Past 12 Hours) Vital Signs Temp Pulse Pulse Resp BP BP Pulse Ox 09/03/24 11:13 36.5 C 58 L 18 132/84 94 09/03/24 10:09 85 09/03/24 10:09 09/03/24 07:22 36.7 C 66 18 160/95 H 95 09/03/24 04:15 70 09/03/24 03:34 36.6 C 63 19 168/98 H 94 O2 Del Method 09/03/24 11:13 Room Air 09/03/24 10:09 09/03/24 10:09 Room Air 09/03/24 07:22 Room Air 09/03/24 04:15 09/03/24 03:34 Room Air Diagnostic Findings AMEYA with severe mitral calcification and aortic atheroma. (1) Embolic stroke Precerebral and cerebral artery: unspecified cerebral artery Qualified Code(s): I63.40 - Cerebral infarction due to embolism of unspecified cerebral artery
--- NOTE | 2024-09-03 14:12 | Cardiology Progress Note ---
Date of Service September 03, 2024 Assessment & Plan (1) Embolic stroke: (2) Mobitz type 2 second degree heart block: (3) Carotid stenosis, right: (4) Elevated troponin I level: Plan ECG and telemetry with second-degree AV block Mobitz type II. Discussed pacemaker implantation versus implantable loop recorder. Given underlying conduction disease (right bundle branch block and left angina fascicular) and now second-degree AV block Mobitz type II, Pacemaker implantation preferred. Patient agreeable. Results of transesophageal echocardiogram reviewed without evidence of intracardiac thrombus, vegetation, or PFO. Significant mitral annular calcification noted which may be associated with embolic CVA. Continue low-dose aspirin, atorvastatin, Zetia, clopidogrel, and lisinopril as ordered. Possible discharge in 24-48 hours. Admission and Anticipated Discharge Date Admission Date: August 31, 2024 Subjective 79-year-old male seen and examined at the bedside. Telemetry revealing second- degree AV block Mobitz type II. No lightheadedness, dizziness, syncope, or near syncope. Denies chest pain or shortness of breath. Review of Systems Review of Systems: All systems reviewed & are unremarkable except as noted in Subjective Physical Exam Constitutional: well nourished; no acute distress Respiratory: no respiratory distress, no labored breathing and no retractions Cardiovascular: Rate/Rhythm: regular rate and regular rhythm Heart Sounds: normal S1 and normal S2; no murmur Vessels: no JVD and no carotid bruit Extremities: no edema Gastrointestinal (Abdomen): Inspection/Auscultation: abdomen normal to inspection and normal bowel sounds; abdomen not distended Percussion/Palpation: abdomen soft; abdomen nontender, no guarding and abdomen not rigid Results & Data Vital Signs (Past 12 Hours) Vital Signs Temp Pulse Pulse Resp BP BP Pulse Ox 09/03/24 11:13 36.5 C 58 L 18 132/84 94 09/03/24 10:09 85 09/03/24 10:09 09/03/24 07:22 36.7 C 66 18 160/95 H 95 09/03/24 04:15 70 09/03/24 03:34 36.6 C 63 19 168/98 H 94 O2 Del Method 09/03/24 11:13 Room Air 09/03/24 10:09 09/03/24 10:09 Room Air 09/03/24 07:22 Room Air 10/16/24 04:15 09/03/24 03:34 Room Air (1) Embolic stroke Laterality of affected vessel: unspecified
--- NOTE | 2024-09-03 14:56 | History & Physical Bridge Note ---
Date of Service September 03, 2024 History & Physical Bridge Note I have examined the patient, reviewed the History & Physical and in the interval since the performance of the History & Physical I have noted the following changes of clinical significance: pt with recurrent presumed embolic CVA recommended a loop insertion prior to hospital discharge. I discussed the procedure and potential risks of bleeding and infection; he expressed an understanding and consents signed.
--- NOTE | 2024-09-03 16:20 | History & Physical Bridge Note ---
Date of Service September 03, 2024 History & Physical Bridge Note I have examined the patient, reviewed the History & Physical and in the interval since the performance of the History & Physical I have noted the following changes of clinical significance: pt with 2:1 AV block and presented with CVA; recommended a dual chamber pacemaker prior to hospital discharge; i discussed the procedure and potential risks with the patient and consents signed.
--- NOTE | 2024-09-03 16:21 | Pre Anesthesia Assessment ---
Date of Service September 03, 2024 Pre Sedation Assessment Vital Signs Temp Pulse Pulse Resp BP BP Pulse Ox 09/03/24 11:13 36.5 C 58 L 18 132/84 94 09/03/24 10:09 85 09/03/24 10:09 09/03/24 07:22 36.7 C 66 18 160/95 H 95 09/03/24 04:15 70 09/03/24 03:34 36.6 C 63 19 168/98 H 94 09/02/24 23:35 59 L 09/02/24 22:49 36.6 C 58 L 18 139/87 94 09/02/24 19:48 36.7 C 64 18 137/86 95 O2 Del Method 09/03/24 11:13 Room Air 09/03/24 10:09 09/03/24 10:09 Room Air 09/03/24 07:22 Room Air 09/03/24 04:15 09/03/24 03:34 Room Air 09/02/24 23:35 09/02/24 22:49 Room Air 09/02/24 19:48 Room Air Cardiovascular RRR, no murmur, no edema + bradycardic Respiratory normal respiratory effort, lungs clear to auscultation Pre-Sedation Airway Assessment Smoking Status: Never smoker Hx Sleep Apnea: No Hx Difficult Intubation: No Short, Thick Neck: No Thyromental Distance: > or= 3.5 Finger Breadths Mallampati Class: II ASA: ASA3 NPO Status Date of Last Intake of Fluids: 09/02/24 Date of Last Intake of Solid Food: 09/02/24 Procedure Planning Contraindications for Sedation: none Current Medications Reviewed: Yes Notes The planned sedation has been discussed with the patient. Informed Consent was obtained. I have identified the patient, determined the appropriateness of sedation and have assessed the patient immediately prior to the procedure. All medicine(s) and interventions are by my order.
[2024-09-03] MEDS: BUPIVACAINE 0.25% PF 30 ML VIAL ONE (17:05)
[2024-09-03] MEDS: LIDOCAINE 1% LOCAL 20 ML VIAL ONE (17:05)
[2024-09-03] MEDS: ceFAZolin 330 MG/ML 1 GM VIAL ONE (17:05)
[2024-09-03] MEDS: VANCOMYCIN HCL 1000MG/20ML VIAL ONE (17:06)
[2024-09-03] MEDS: fentaNYL citrate PF 100 MCG/2 ML VIAL ONE (17:22)
[2024-09-03] MEDS: MIDAZOLAM HCL 5 MG/ML 1 ML VIAL ONE (17:22)
[2024-09-03] MEDS: ENALAPRILAT 2.5 MG/2 ML 2ML VIAL IV ONE ×2 (17:24→20:38)
--- NOTE | 2024-09-03 17:34 | Post Anesthesia Assessment ---
Date of Service September 03, 2024 Post Sedation Assessment Vital Signs Temp Pulse Pulse Resp BP BP Pulse Ox 09/03/24 11:13 36.5 C 58 L 18 132/84 94 09/03/24 10:09 85 09/03/24 10:09 09/03/24 07:22 36.7 C 66 18 160/95 H 95 09/03/24 04:15 70 09/03/24 03:34 36.6 C 63 19 168/98 H 94 09/02/24 23:35 59 L 09/02/24 22:49 36.6 C 58 L 18 139/87 94 09/02/24 19:48 36.7 C 64 18 137/86 95 O2 Del Method 09/03/24 11:13 Room Air 09/03/24 10:09 09/03/24 10:09 Room Air 09/03/24 07:22 Room Air 09/03/24 04:15 09/03/24 03:34 Room Air 09/02/24 23:35 09/02/24 22:49 Room Air 09/02/24 19:48 Room Air Recovery Score Activity: Moves 4 extremities Respiration: Deep Breath/Cough Circulation: +/-20% PreAnes Value Consciousness: Fully Awake Oxygen Saturation: > 92% On Room Air Post Anesthesia Score: 9 Discharge Sedation Level of Care: Fast Track Phase II Post Sedation Plan On clinical assessment, the patient appears to have tolerated the sedation without complications. Patient is recovering as anticipated. Patient will continue to be monitored by nursing and may be discharged when sedation discharge criteria are met per below protocol. Upon Completions of procedure up to 15 minutes continue every 5 minute vital signs and the P.A.R. score; then discharge to a Phase I or Fast Track to Phase II per the following guidelines: * Discharge Patient to appropriate Phase II area if PAR is 8 or greater or return to pre- procedure baseline. The post - procedure orders will be as directed. * If PAR score is less than 8 or not return to pre-procedure baseline then patient will follow Phase I monitoring till PAR is reached for Phase II. The Phase I may be done in procedure room or may call to secure a Phase I area. * If naloxone or flumazenil are used for reversal, hold in Phase I for continued monitoring from when last reversal dose was given for a minimum of 60 minutes or longer pending the nurse and/or physician discretion of patient condition before discharge to Phase II. Please call the Sedation Physician to re-evaluate and complete post-note for discharge to Phase II area. Do NOT discharge from procedure sedation or Phase 1 until post- sedation evaluation note is complete by procedure /sedation MD Sedation Discharge Instructions to be given to the patient at discharge to home.
[2024-09-03] MEDS: hydrALAZINE HCL 20 MG/ML VIAL ONE (17:36)
[2024-09-03] MEDS: WATER, STERILE FOR INJ 10 ML VIAL ONE (18:11)
[2024-09-03] MEDS: ACETAMINOPHEN 325 MG TAB PO PRN (20:34)
[2024-09-04] MEDS: lisinopril 2.5 MG TAB PO ONE (05:34)
[2024-09-04 07:16] VITALS: RESP 18
--- NOTE | 2024-09-04 07:16 | XRay Report ---
XR chest 1V portable HISTORY: 79 years-old Male s/p ppm ensure no ptx status post placement of a left subclavian pacer COMPARISON: 08/31/2024 TECHNIQUE: AP view of the chest FINDINGS: Cardiac silhouette is enlarged. Status post placement of a dual lead left subclavian pacer. No postpr ocedural pneumothorax. The lungs appear generally clear. No pleural effusion. Descending thoracic aor tic tortuosity. IMPRESSION: Status post placement of a dual lead left subclavian pacer. No postprocedural pneumothora x. ACT 112: Negative or not required by law. The above report was generated using voice recognition software. It may contain grammatical, syntax o r spelling errors. Electronically signed by: Fredis Teixeira M.D. 09/04/2024 7:15 AM
[2024-09-04 07:40] LABS: Hematocrit (blood only) 43.2 % (42.0-52.0); Hemoglobin 15.2 g/dl (14.0-18.0); Mean Corpuscular Hemoglobin 29.9 pg (25.0-34.0); Mean Corpuscular Hgb Conc 35.2 g/dL (32.0-36.0); Mean Platelet Volume 11.7 fL (9.4-12.4); Platelet Count 238 K/uL (130-400); RDW Coefficient of Variation 14.2 % (11.5-14.5); Red Blood Count 5.08 M/uL (4.70-6.10); White Blood Count 9.42 K/ul (4.8-10.8)
[2024-09-04 07:59] LABS: BUN Creatinine Ratio 18.5 (10-20); Creatinine Clr Calc Pharmacy 73.8 ml/min; Potassium 4.3 mmol/L (3.5-5.1)
--- NOTE | 2024-09-04 08:48 | Electrocardiogram Report ---
Test Reason : Blood Pressure : */* mmHG Vent. Rate : 79 BPM Atrial Rate : 79 BPM P-R Int : 150 ms QRS Dur : 146 ms QT Int : 444 ms P-R-T Axes : 10 136 -61 degrees QTcB Int : 509 ms Atrial-sensed ventricular-paced rhythm Abnormal ECG When compared with ECG of 03-Sep-2024 04:53, Electronic ventricular pacemaker has replaced Sinus rhythm Confirmed by Shaun Hyde ([id number]) on 09/04/2024 8:47:59 AM Referred By: REFERRED SELF Confirmed By: Shaun Hyde
[2024-09-04 11:08] VITALS: TEMP 98.8; O2SAT 93
--- NOTE | 2024-09-04 12:48 | Discharge Summary ---
Discharge Summary Date of Service September 04, 2024 Principal Dx & Hospital Course #1 = Principal Diagnosis (1) Embolic stroke: (2) Carotid artery stenosis: (3) Elevated troponin I level: (4) Mobitz type 2 second degree heart block: Johnnie Raphael is an 79y/o M with PMHx significant for hypertensive heart disease without evidence of congestive heart failure, history of cryptogenic CVA/TIA in 2017 chronically treated with DAPT, moderate OSVALDO stenosis, underlying conduction disease (right BBB, left anterior fascicular block, first-degree AVB), moderate aortic root enlargement, mild ascending aortic enlargement, HLD, GERD, history of prostate cancer s/p radiation therapy, urinary incontinence and HTN who presented to the ED for evaluation of stroke-like symptoms on 08/31/2024. Patient was made a stroke alert on arrival to the ED. Telestroke was consulted and recommended against TNK use given that his last known well was around 12PM this afternoon. He was diagnosed with an embolic stroke on his brain MRI. Embolic CVA & High-Grade Right Internal Carotid Artery Stenosis: Acute; H/O TIA and known high grade R ICA stenosis. Head CT negative for acute intracranial hemorrhage or territorial infarct but does note involutional changes with chronic microvascular ischemic disease in addition to an age- indeterminate right cerebellar lacunar infarct. Head and neck CTA imaging revealed high-grade stenosis (80%) of the proximal cervical segment right ICA secondary to prominent atherosclerotic plaque. Lyme screen negative. Brain MRI revealed multiple vascular territory foci of mostly subcentimeter restricted diffusion noted throughout the cerebrum, brainstem and cerebellum. Findings compatible with acute versus subacute lacunar infarcts, likely from a proximal thromboembolic source. No ICH, SDH nor midline shift. Echo done 09/01/2024 --> LVEF of 55 to 60%, mild concentric LVH, mildly dilated left atrium, mild aortic valve sclerosis, mild to moderate aortic regurgitation, mildly enlarged aortic root (4.0cm), borderline enlarged ascending aorta (3.9cm). Was not on a lipid lowering agent; started on atorvastatin on admission Lipid panel: TG 59, LDL 71, HDL 47 and Hgb A1c 5.6%. Zetia added as adjuvant therapy to atorvastatin on 09/01/2024. Continue aspirin, Plavix as recommended by neurology. Neurology and vascular surgery follow-up appointments at time of discharge. Needs right transcarotid artery revascularization performed as outpatient. Recommend patient toremain on DAPT and statin in preparation for TCAR. Second Degree Heart Block (Mobitz II): Acute; Known history of first-degree AVB, RBBB and left anterior fascicular block and LVH. 09/03/2024 --> 04:40 this morning telemetry showed difference in P wave and QRS; confirmed second-degree AVB Mobitz 2. He had a pacemaker placed on 09/03/2024. Demand Ischemia , Elevated Troponin I Level Hypertensive Heart Disease & Conduction Disease: Troponin 503 on presentation--->806--> 504 --> 790 on 09/02/2024 in the AM. Initial EKG showed sinus rhythm with marked sinus arrhythmia with first-degree AV block and bifascicular block. CXR cardiomegaly without acute process. Recently established with [employer] 08/12 [Dr. Carpio]. Known history of first-degree AVB, RBBB and left anterior fascicular block and LVH as per above. Echo done 09/01/2024 --> LVEF of 55 to 60%, mild concentric LVH, mildly dilated left atrium, mild aortic valve sclerosis, mild to moderate aortic regurgitation, mildly enlarged aortic root (4.0cm), borderline enlarged ascending aorta (3.9cm). Results of transesophageal echocardiogram without evidence of intracardiac thrombus, vegetation, or PFO. Significant mitral annular calcification noted which may be associated with embolic CVA. Chest CT negative for PE. Normal CK. Continue home lisinopril-HCTZ and amlodipine at time of discharge. Other Chronic Medical Conditions: GERD, urinary incontinence --> Can continue home medications for these specific conditions. PCP: Snow Aguayo DO Disposition: Patient is being discharged home in stable condition with close neurology, cardiology and vascular surgery follow-up appointments. Patient seen in collaboration with Dr. Weaver. Please see addendum. I spent a total of 65 minutes coordinating, documenting, and providing care for this patient excluding time spent in the performance of separately billed services. This included personally reviewing all current laboratories and imagi ng studies, medical reconciliation, outpatient chart review and discussion with specialists. This chart was completed in part utilizing Speech Voice Recognition Software. Grammatical errors, random word insertions, pronoun errors, and incomplete sentences are an occasional consequence of this system due to software limitations, ambient noise, and hardware issues. Any formal questions or concerns about the content, text, or information contained within the body of this dictation should be directly addressed to the provider for clarification. Notes For Next Care Provider Will need routine BP monitoring with medication adjustments as needed. Medication Changes From Visit 1. CONTINUE taking aspirin 81mg daily. 2. CONTINUE taking clopidogrel 75mg daily. 3. START taking ezetimibe 10mg daily and atorvastatin 40mg daily. Admission HPI Per Admitting Provider Roldan Raphael is an 79y/o M with PMHx significant for hypertensive heart disease without evidence of congestive heart failure, history of cryptogenic CVA/TIA in 2017 chronically treated with dual antiplatelet therapy, moderate right internal carotid artery stenosis, underlying conduction disease (right bundle branch block, left anterior fascicular block, first-degree AV block), moderate aortic root enlargement, mild ascending aortic enlargement, dyslipidemia, GERD, peripheral neuropathy, history of prostate cancer s/p radiation therapy, urinary incontinence and HTN who presented to the ED for evaluation of stroke-like symptoms. History obtained from patient, family at bedside and associated chart review. Symptoms seemed to have started around 1PM this afternoon. Family at bedside mentions he had some slurring of his speech in addition to a delay in his speech during conversation. He also had some numbness and tingling in both of his upper extremities (R>L) - which has not yet fully resolved. Family noticed some lower right-sided facial drooping once they got to the ED but mentions it has seemed to improve. Patient had previously noticed some brightness in his vision yesterday that lasted approximately 45 minutes to an hour and resolved without any intervention. The visual disturbance eventually did reoccur later in the day and lasted for about 45 minutes before resolving without any intervention once again. He was having trouble walking when this all started around 1PM. Family reports that he had no balance at all when this started, mentions he couldn't even take a step forward or move around without leaning on nearby objects for support in order to prevent him from falling. No loss of bladder or bowel control after this all started. Patient reports that he has some balance issues at baseline due to his peripheral neuropathy, family mentions that he frequently stumbles at baseline. Patient did have some lightheadedness when his other symptoms started this afternoon. He does have a history of TIA but no known history of CVA. He denies any chest pain or discomfort. Patient was actually made a stroke alert on arrival to the ED. Telestroke was consulted and recommended against TNK use given that his last known well was around 12PM this afternoon. Admission Exam Per Admitting Provider General Appearance:Moderately built and nourished, no apparent distress Head: normocephalic, Atraumatic Eyes: normal inspection, EOMI Neck: supple, Trachea midline Respiratory/Chest: Normal breath sounds, CTA, No accessory muscle use Cardiovascular: S1, S2, No murmur Abdomen/GI:Soft, Non tender, Bowel sounds present Extremities/Musculoskeletal:normal inspection, no edema Neurologic/Psych:AAOX3,? Minimal right facial droop, speech clear, +Dysmetria,Adiadochokinesia, gait not performed otherwise grossly no focal deficits Skin: normal color, warm Discharge Exam General: WD/WN, vitals as above, NAD, sitting up in bed, very pleasant, conversing appropriately. A+Ox3, euthymic affect. HEENT: Normocephalic, atraumatic. PERRL, conjunctivae normal, anicteric sclerae. External ear and nose normal, oropharynx normal. Respiratory: Normal respiratory effort, lungs clear to auscultation, no wheeze, rales, rhonchi. No accessory muscle use. Cardiovascular: Regular rate, rhythm, no murmur, normal peripheral pulses, no BLE edema. Vessels: No JVD. Abdomen/GI: Normal bowel sounds, soft, nontender, no hepatosplenomegaly. Extremities/Musculoskeletal: No cyanosis or clubbing, extremities motor strength intact, moves all extremities. Neurologic: EOMI, no focal deficits, CN's II-XI not formally tested but appear grossly intact bilaterally. Skin: No rashes, normal color, warm/dry. Bandaging intact over pacemaker insertion site. Updated Medication List Medication Instructions Recorded Confirmed Type amlodipine 5 mg tablet 5 mg PO QAM 08/31/24 09/04/24 History aspirin 81 mg PO DAILY 08/31/24 09/04/24 History lisinopril 20 1 tab PO DAILY 08/31/24 09/04/24 History mg-hydrochlorothiazide 12.5 mg tablet mirabegron 50 mg tablet,extended 50 mg PO DAILY 08/31/24 09/04/24 History release 24 hr (Myrbetriq) pantoprazole 40 mg tablet,delayed 40 mg PO DAILY 08/31/24 09/04/24 History release atorvastatin 40 mg tablet 40 mg PO QAM #30 tabs 09/04/24 Rx clopidogrel 75 mg tablet 75 mg PO DAILY 09/04/24 09/04/24 History ezetimibe 10 mg tablet 10 mg PO QAM #30 tabs 09/04/24 Rx Hospital Stay Data Consultations 08/31/24 15:06 ED Decision to Admit Stat 08/31/24 15:08 Consult Cardiology Routine Consult Neurology Routine 09/01/24 12:29 Consult Anesthesiology Routine 09/01/24 13:45 Consult Vascular Surgery Routine Procedures Performed Operation Date: 09/03/24 14:00 Actual Procedures p Pacer with A/V Leads (Dual) - Bee Robbins DO s Venogram, Unilateral - Bee Robbins DO Diagnostic Imagining Performed 08/31/24 13:49 CT angio head w con Stat CT angio neck with con Stat CT head/brain wo con Stat 08/31/24 16:28 MRI Brain [MR brain wo/w con] Routine 09/01/24 11:39 US venous duplex leg [US venous doppler LE BI] Routine 09/02/24 09:50 CT angio chest PE protocol Routine 09/03/24 16:45 EP Lab Images for PACS ONCE Pending Results Patient Have Any Pending Studies at Discharge: No Discharge Instructions Given to Patient (Per Discharging Provider) Mac Monteiro were admitted to the hospital due to stroke-like symptoms and unfortunately were found to have evidence of an embolic stroke on your admitting brain MRI. You were therefore seen and evaluated by neurology during your admission. You already have a follow-up appointment scheduled with [facility] neurology as outlined below. Please attend this follow-up appointment as scheduled! You are being sent home with a prescription for outpatient physical therapy. You were also found to have high-grade right internal carotid artery stenosis [AKA narrowing] on your admitting imaging. You were subsequently seen by vascular surgery during your admission, whom recommended that you eventually undergo a procedure called transcarotid artery revascularization (TCAR) to reopen this area of stenosis. You will have a follow-up appointment with Dr. Forbes to further discuss the details regarding this route of intervention. You will be contacted by his office very soon to schedule this appointment! Please attend this follow-up appointment as scheduled! You were found to have a second-degree atrioventricular block [AKA heart block] while you were admitted as well. Heart blocks happen when the electrical signals that tell the heart to beat either get slowed down or stopped. You were therefore seen by cardiology and underwent pacemaker placement on 09/03/2024. Pacemakers are electronic devices that stimulate the heart with electrical impulses to maintain or restore a normal heartbeat. You will be contacted by the [facility] cardiology office at [facility] very soon to schedule a follow-up appointment! Please attend this follow-up appointment as scheduled! MEDICATION CHANGES 1. CONTINUE taking aspirin 81mg daily. 2. CONTINUE taking clopidogrel 75mg daily. 3. START taking ezetimibe 10mg daily and atorvastatin 40mg daily. * You can continue taking all of your other previous home medications as prescribed. UPCOMING APPOINTMENTS Date & Time: 09/08/2024 @ 8:20 AM Provider: Pharmacist [address] [place] [address] Department: [address] Date & Time: 09/08/2024 @ 4:20 PM Provider: Snow Aguayo DO Department: [address] Date & Time: 10/10/2024 @ 11:00 AM Provider: Bee Snowden PA-C Department: [facility] Neurology [facility] Date & Time: , 12/18/2024 @ 11:00 AM Provider: Teddy Steinberg MD Department: [facility] Urology Amber Mendoza Seek medical attention if you have: * temperature above 101F * chest pain or trouble breathing * abdominal pain, nausea, vomiting * diarrhea, dark stools or bloody stools * any unanswered questions or concerns Call 911 if symptoms are severe. Monitor your blood pressure regularly at home. Discuss with your primary care physician for further adjustment of medications as needed. Please take good care of yourself. It has been a pleasure taking care of you. If you have any questions regarding your recent hospitalization please contact [facility] and request justice Hospitalist @ [phone]. Total Time Total Time Spent Total Time Spent (In Minutes): 65 Supervising Physician Co-Signing Physician Notes I have seen and examined the patient at bedside. Discussed the case with the collaborating advanced practitioner. I agree with the documentation as above. I have reviewed and confirmed the patients medical history, thefindings on physical examination, and the patients diagnosis and treatment plan with Mellissa Johnson PA-C and agree with the information documented. Note has been edited as needed. Admits to have mild soreness at pacemaker insertion site Otherwise no new complaints today Family at bedside Embolic CVA High-grade right internal carotid artery stenosis Second degree heart block S/P pacemaker placement Continue aspirin, Plavix, atorvastatin, Zetia Resume home lisinopril/HCTZ Needs follow-up with cardiology, vascular surgery, neurology on discharge Will likely require Lexiscan nuclear stress test prior to carotid endarterectomy as per cardiology
[2024-09-04 13:21] VITALS: BP 157/96; PULSE 82
--- NOTE | 2024-09-04 13:58 | Cardiology Progress Note ---
Date of Service September 04, 2024 Assessment & Plan (1) Embolic stroke: (2) Mobitz type 2 second degree heart block: (3) Carotid stenosis, right: (4) Elevated troponin I level: Plan 79-year-old male admitted with strokelike symptoms. MRI evidence of possible embolic CVA. Neurology recommending continue dual antiplatelet therapy. No evidence of atrial fibrillation since admission. Patient experienced cryptogenic stroke in 2017 with implantable loop recorder. No obvious etiology of CVA elucidated at that time. Results of transesophageal echocardiogram 09/02/2024 discussed. No evidence of intracardiac thrombus, vegetation, or PFO. Significant mitral annular calcification noted which may be associated with embolic .CVA Intermittent second-degree AV block recorded since during hospitalization. Underlying conduction disease with left anterior fascicular block and right bundle branch block noted. Permanent pacemaker implanted 09/03/2024. Outpatient wound check and interrogation in 1 week. Activity restrictions reviewed. High-grade right internal carotid artery stenosis noted. Likely not the cause of current symptoms and MRI findings. Vascular surgery input appreciated. Outpatient follow-up recommended. Continue dual antiplatelet therapy, (aspirin, clopidogrel), atorvastatin, Zetia, and lisinopril as ordered. Patient will require further evaluation prior to carotid endarterectomy, likely Lexiscan nuclear stress testing. Discuss further at follow-up appointment. Patient may be discharged from a cardiac perspective. Outpatient cardiology follow-up in 2 to 4 weeks. Admission and Anticipated Discharge Date Admission Date: August 31, 2024 Subjective 79-year-old male seen and examined at the bedside. Dual-chamber permanent pacemaker implanted 09/03/2024 without complication. Telemetry reveals sinus rhythm with ventricular pacing. Reports mild soreness near the surgical site denies palpitations or lightheadedness. Tolerating current medications. Review of Systems Review of Systems: All systems reviewed & are unremarkable except as noted in Subjective Physical Exam Constitutional: well nourished; no acute distress Respiratory: no respiratory distress, no labored breathing and no retractions Cardiovascular: Rate/Rhythm: regular rate and regular rhythm Heart Sounds: normal S1 and normal S2; no murmur Vessels: no JVD and no carotid bruit Extremities: no edema Gastrointestinal (Abdomen): Inspection/Auscultation: abdomen normal to inspection and normal bowel sounds; abdomen not distended Percussion/Palpation: abdomen soft; abdomen nontender, no guarding and abdomen not rigid Neurologic: CN's II-XI intact bilaterally Results & Data Vital Signs (Past 12 Hours) Vital Signs Temp Pulse Pulse Resp BP BP Pulse Ox 09/04/24 13:46 37.1 C 82 18 134/92 157/96 H 93 09/04/24 13:17 37.1 C 82 18 134/92 157/96 H 93 09/04/24 11:07 37.1 C 82 18 134/92 93 09/04/24 08:00 76 09/04/24 07:15 36.6 C 71 18 157/96 H 95 09/04/24 05:24 73 129/86 09/04/24 04:49 150/97 H O2 Del Method 09/04/24 13:46 09/04/24 13:17 09/04/24 11:07 Room Air 09/04/24 08:00 09/04/24 07:15 Room Air 09/04/24 05:24 09/04/24 04:49 Laboratory Results CBC 09/04/24 Range/Units 06:56 WBC 9.42 (4.8-10.8) K/ul RBC 5.08 (4.70-6.10) M/uL Hgb 15.2 (14.0-18.0) g/dl Hct 43.2 (42.0-52.0) % Plt Count 238 (130-400) K/uL Comprehensive Metabolic Panel 09/04/24 Range/Units 06:56 Sodium 137 (136-145) mmol/L Potassium 4.3 (3.5-5.1) mmol/L Chloride 105 (98-107) mmol/L Carbon Dioxide 25 (21-32) mmol/L BUN 17 (6-23) mg/dl Creatinine 0.92 (0.6-1.4) mg/dl Glucose 89 (70-99(Fasting)) mg/dl Calcium 9.0 (8.6-10.3) mg/dl Intake and Output 09/03/24 09/04/24 09/04/24 22:59 06:59 14:59 Intake Total 360 / 360 Balance 360 / 360 Intake: Oral 360 / 360 Other: # Unmeasured Voids 1 1 3 Weight 101 kg 101 kg Weight Measurement Method Built in [facility] Patient Weight 09/05/24 06:59 Weight 101 kg (1) Embolic stroke Laterality of affected vessel: unspecified
[2024-09-05] MEDS ORDERED: lisinopril 2.5 MG TAB PO SCH (09:00)
== END 2024-09-04 15:03 | disposition home or self-care (01) | DRG 41 ==
LOC: ED 13:39 → 4W 15:11 → SUATTDRO 15:11 → 4W 16:04

== ENCOUNTER 2025-10-01 19:02 | Observation (INO) ==
[2025-10-01] MEDS: MAGNESIUM SULFATE / D5W 1 GM/100 ML BAG IV STA (21:22)
[2025-10-01 21:41] LABS: Partial Thromboplastin Time 31 Seconds (21-31)
--- NOTE | 2025-10-01 22:19 | Emergency Department Note ---
History of Present Illness General Chief complaint: Abnormal Labs/Diagnostic Testing Stated complaint: ABN LABS, REF BY Time Seen by Provider: 10/01/25 20:34 History of Present Illness This is an 80-year-old male returning to the emergency department for evaluation of possible stroke. He is having visual disturbance in his left eye, and at his visit this morning he did have blood work as well as CT and CTA. The patient did not have any distinct acute findings on CT imaging, and it was recommended that he be admitted for MRI. The patient does have a pacemaker that will likely need the food service representative to disable the device for the MRI. Patient did not want to stay in the hospital, as he had an appointment with ophthalmology this afternoon, and preferred to go to that appointment. Patient did follow with Dr. Ordaz this afternoon, where concern was for a 4th nerve palsy affecting his vision. Dr. Ordaz also recommended MRI, and now the patient returns to the emergency department for evaluation. The patient is currently on aspirin and Plavix. No difficulty moving arms or legs. Patient rates his current discomfort a 1/10. Home Medications Medication Instructions Recorded Confirmed Type amlodipine 5 mg tablet 5 mg PO QAM 08/31/24 10/01/25 History pantoprazole 40 mg tablet,delayed 40 mg PO DAILY 08/31/24 10/01/25 History release atorvastatin 40 mg tablet 40 mg PO QAM #30 tabs 09/04/24 10/01/25 Rx clopidogrel 75 mg tablet 75 mg PO DAILY 09/04/24 10/01/25 History ezetimibe 10 mg tablet 10 mg PO QAM #30 tabs 09/04/24 10/01/25 Rx lisinopril 20 mg tablet 20 mg PO BID 09/30/25 10/01/25 History metoprolol succinate 25 mg 25 mg PO DAILY 09/30/25 10/01/25 History tablet,extended release 24 hr solifenacin 5 mg tablet 5 mg PO DAILY 09/30/25 10/01/25 History apixaban 5 mg tablet (Eliquis) 5 mg PO BID 10/01/25 10/01/25 History Allergies Allergy/AdvReac Type Severity Reaction Status Date / Time No Known Allergies Allergy Verified 09/30/25 21:30 Past Med/Surg History Problem List (Updated 10/01/25 @ 22:19 by Teddy Gonzalez PA-C) Visual disturbance (Acute) Blurred vision, left eye (Acute) Nausea & vomiting (Acute) Acute dehydration (Acute) Medical History Embolic stroke Second degree heart block Hypertension TIA (transient ischemic attack) Surgical History No pertinent past surgical history Social History Smoking Status: Former smoker Tobacco Type: Cigarettes Second Hand Exposure: No; Do You Dip or Chew Tobacco: No; Tobacco Cessation Education Requested by Patient: No Hx Alcohol Use: Yes Alcohol type: hard liquor Hx Substance Use: No Preferred Language: [place] Communication Ability: Effective 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 Station 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: No Beliefs That Will Affect Care: None Current Living Situation: Spouse Current Living Situation Comment: At hiome with Other Information That Helps Us Care for You: No Feels Safe at Home: Yes Safety Concerns: Feels Safe At This Time Assistive Devices: Glasses, Hearing Aid - Bilateral and Hospital Bed Review of Systems A total of 10 systems reviewed and were otherwise negative Physical Exam Vital Signs Vital Signs - 24 hr 10/01/25 22:30 10/01/25 22:51 Pulse Rate [Finger] 60 Respiratory Rate 20 18 Blood Pressure [Right Arm] 155/93 H 146/102 H Blood Pressure Mean [Right Arm] 113 116 Blood Pressure Position [Right Arm] Lying Pulse Oximetry 93 96 Oxygen Delivery Method Room Air Room Air VITALS: Vitals are noted on the nurse's note and reviewed by myself. Vital signs stable. GENERAL: Elderly white male who appears in no acute distress HEAD: Normocephalic atraumatic. HEART: Regular rate and rhythm LUNGS: Clear to auscultation bilaterally without wheezes, rales or rhonchi. No retractions or accessory muscle use. ABDOMEN: Positive normal bowel sounds x 4. Soft, nontender, without masses or organomegaly. No guarding or rebound tenderness. MUSCULOSKELETAL: No muscle atrophy, erythema, or edema noted. Full range of motion in all extremities. NEURO: Patient was alert and oriented to person place and time. Course Administered Medications Discontinued Medications Amlodipine Besylate (Amlodipine Besylate 5 Mg Tab) 5 mg PO NOW ONE Stop: 10/02/25 10:45 Last Admin: 10/02/25 11:15 Dose: 5 mg Documented By: ANITA Apixaban (Apixaban 5 Mg Tablet) 5 mg PO BID CAMILLE Stop: 11/01/25 08:59 Last Admin: 10/02/25 08:04 Dose: 5 mg Documented By: ANITA Apixaban (Apixaban 5 Mg Tablet) 5 mg PO ONE STA Stop: 10/01/25 23:31 Last Admin: 10/02/25 00:11 Dose: 5 mg Documented By: SHKellen Atorvastatin Calcium (Atorvastatin 40 Mg Tab) 40 mg PO QAM [place] Stop: 11/01/25 08:59 Last Admin: 10/02/25 08:04 Dose: 40 mg Documented By: ANITA Ezetimibe (Ezetimibe 10 Mg Tab) 10 mg PO QAM [place]LI[place] Stop: 11/01/25 08:59 Last Admin: 10/02/25 08:04 Dose: 10 mg Documented By: ANITA Magnesium Sulfate/Dextrose (Magnesium Sulfate / D5w) 1 gm in 100 mls @ 50 mls/hr IV ONE STA Stop: 10/01/25 22:58 Last Infusion: 10/01/25 23:07 Dose: Infused Documented By: Admin: 10/01/25 21:22 Dose: 50 mls/hr Documented By: yuniw Sodium Chloride (Nss) 1,000 mls @ 60 mls/hr IV .[id number] STA Stop: 10/02/25 15:20 Last Admin: 10/01/25 23:07 Dose: 60 mls/hr Documented By: REGINA Metoprolol Succinate (Metoprolol Succ 25mg Ext Rel Tab) 25 mg PO DAILY [place] Stop: 11/01/25 08:59 Last Admin: 10/02/25 08:03 Dose: 25 mg Documented By: ANITA Metoprolol Tartrate (Metoprolol Tartrate 25 Mg Tab) 12.5 mg PO NOW STA Stop: 10/01/25 22:40 Last Admin: 10/01/25 22:48 Dose: 12.5 mg Documented By: yuniw Oxybutynin Chloride (Oxybutynin Chloride Xl 5 Mg Tabcr) 5 mg PO DAILY CAM[place] Stop: 11/01/25 08:59 Last Admin: 10/02/25 08:04 Dose: 5 mg Documented By: ANITA Pantoprazole Sodium (Pantoprazole 40 Mg Tab) 40 mg PO DAILY [place] Stop: 11/01/25 08:59 Last Admin: 10/02/25 08:03 Dose: 40 mg Documented By: ANITA Medical Decision Making Differential Diagnosis Differential diagnosis: Etiologies such as stroke, cranial nerve palsy, benign positional vertigo, labrynthitis, dehydration, hypovolemia, anemia, tumor, infection, hypoglycemia, electrolyte abnormalities, cardiac sources, toxicological sources, central neurologic process, as well as others were entertained. Laboratory Data 10/02/25 07:38 10/02/25 07:38 Lab Results 10/01/25 Range/Units 20:47 APTT 31 (21-31) Seconds PTT Ratio 1.1 Troponin I High Sens 27.8 H (0-20) pg/ml MDM Narrative Physical exam and history were performed. Nursing notes, EMR, and Medication List were personally reviewed. No social concerns were identified as barriers to patients care. History was provided by the Patient and family who are at bedside. Patient appears to have continued visual disturbance in the left eye. It was recommended that he stay for MRI this morning, but the patient did leave. 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 The patient is willing to stay in the hospital, understanding that he will need MRI, which is somewhat complicated by his pacemaker. IV access was established. Labs and additional imaging studies were not ordered as he did have these earlier today. Escalation of care was considered, and felt to be necessary. The case was discussed with the on-call hospitalist, who agreed to evaluate the patient here in the ER. Please see their dictation for further patient course, plan, disposition. The chart was completed utilizing [employer] Speech Voice Recognition Software. Grammatical errors, random word insertions, pronoun errors, and incomplete sentences are an occasional consequence of this system due to software limitations, ambient noise, and hardware issues. Any formal questions or concerns about the content, text, or information contained within the body of this dictation should be directly addressed to the provider for clarification. Attending Attestation: I Jose Campbell MD I have reviewed the advanced practitioner's documentation and agree with the plan of care. I accept the responsibility for the associated risk of managing the patient. I performed a substantive portion of the visit including involvement in all aspects of medical decision making. Impression & Plan Visual disturbance Discharge Plan Visit Data Chief Complaint: Abnormal Labs/Diagnostic Testing Stated Complaint: ABN LABS, REF BY ED Provider: Jose Campbell ED Midlevel Provider: Teddy Gonzalez Discharge Problem: Visual disturbance Patient Disposition: Admitted As Inpatient Condition: Fair Discharge Instructions Interventions: ED Discharge Assessment Last Done: 10/02/25 00:17
[2025-10-01] MEDS: METOPROLOL TARTRATE 25 MG TAB PO STA (22:48)
[2025-10-01] MEDS: SODIUM CHLORIDE 0.9% 1,000 ML IV STA (23:07)
--- NOTE | 2025-10-01 23:09 | History & Physical Report ---
Date of Service October 01, 2025 Assessment & Plan (1) TIA (transient ischemic attack): Plan: Assessment and plan below following discussion of case with ED provider and reviewing patient history/pertinent normal/abnormal diagnostic test results. 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 MRI department to notify Young re presentative in AM.) Permissive hypertension until new stroke ruled out Neurology consult contingent on MRI results. Retrieve outpatient Optometry consultation. (Dr. Ordaz from [facility].) Update lipid profile Check hemoglobin A1c DVT prophylaxis. Eliquis Full code Patient requesting updates providers. Tracey Raphael, contact #[phone]. Text document was generated using [employer] voice recognition software. It may contain grammatical or spelling errors. Kindly contact undersigned for clarification of any documentation item in question. History of Present Illness Chief Complaint: MRI Primary Care Provider: Snow Aguayo DO History obtained from patient and records. 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 Last confinement August 2024 for embolic CVA presenting as slurred speech, facial drooping, visual disturbance and trouble walking. MRI brain showed multiple vascular territory foci of mostly subcentimeter restricted diffusion noted throughout cerebrum, brainstem and cerebellum compatible with acute versus subacute lacunar infarcts likely from proximal thromboembolic source. 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 Patient discharged on statin Rx in addition to DAPT. Eliquis later initiated outpatient for thromboembolic prophylaxis due to mobile echodensity on mitral valve. [place] [facility] [place] woke up with trouble focusing on the left eye this morning. Double vision. No headache symptoms. No slurred speech or focal arm or leg weakness. Compliant with home medications. Patient denies chest pain, SOB. Patient consulted [facility] ER this a.m. Unremarkable CT head and neck imaging. Normal eye exam as per provider note. Concern for TIA. Patient refused to stay for stroke workup and preferred to see local telesales specialist. Patient seen by local telesales specialist from [facility]. Concern for 4th nerve palsy as per ED provider. Orthotic/Prosthetic Clinician recommended return to ER to facilitate MRI. Vision issue currently resolved at time of return to ER. Asymptomatic NSVT episode noted on telemetry during ED stay. 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 Allergies Allergy/AdvReac Type Severity Reaction Status Date / Time No Known Allergies Allergy Verified 09/30/25 21:30 Home Medications Medication Instructions Recorded Confirmed Type amlodipine 5 mg tablet 5 mg PO QAM 08/31/24 10/01/25 History pantoprazole 40 mg tablet,delayed 40 mg PO DAILY 08/31/24 10/01/25 History release atorvastatin 40 mg tablet 40 mg PO QAM #30 tabs 09/04/24 10/01/25 Rx clopidogrel 75 mg tablet 75 mg PO DAILY 09/04/24 10/01/25 History ezetimibe 10 mg tablet 10 mg PO QAM #30 tabs 09/04/24 10/01/25 Rx lisinopril 20 mg tablet 20 mg PO BID 09/30/25 10/01/25 History metoprolol succinate 25 mg 25 mg PO DAILY 09/30/25 10/01/25 History tablet,extended release 24 hr solifenacin 5 mg tablet 5 mg PO DAILY 09/30/25 10/01/25 History apixaban 5 mg tablet (Eliquis) 5 mg PO BID 10/01/25 10/01/25 History Past Med/Surg History Problem List (Updated 10/01/25 @ 22:19 by Teddy Gonzalez PA-C) Visual disturbance (Acute) Blurred vision, left eye (Acute) Nausea & vomiting (Acute) Acute dehydration (Acute) Medical History Embolic stroke Second degree heart block Hypertension TIA (transient ischemic attack) Surgical History No pertinent past surgical history Social History Smoking Status: Former smoker Tobacco Type: Cigarettes Second Hand Exposure: No; Do You Dip or Chew Tobacco: No; Tobacco Cessation Education Requested by Patient: No Hx Alcohol Use: Yes Alcohol type: hard liquor Hx Substance Use: No Preferred Language: Syriac Communication Ability: Effective Grant Coordinator Required: No Beliefs That Will Affect Care: None Current Living Situation: Spouse Current Living Situation Comment: At hiome with Other Information That Helps Us Care for You: No Feels Safe at Home: Yes Safety Concerns: Feels Safe At This Time Assistive Devices: Glasses, Hearing Aid - Bilateral and Hospital Bed Review of Systems Review of Systems: As per HPI, all other systems reviewed and negative Physical Exam Physical Exam: GENERAL: Comfortable, pleasant, obese, slightly hard of hearing, no respiratory distress SKIN: Normal color, warm HEENT: Alopecia, pink palpebral conjunctivae, no ptosis, moist buccal mucosa NECK : Supple, no tenderness CHEST : CTA, no tenderness HEART : RRR, systolic murmur ABDOMEN: Some distention, nontender EXTREMITIES : No LE swelling/tenderness, palpable pulses, no other conspicuous deformities noted NEUROLOGIC : Coherent, no eye deviation, no facial asymmetry, slightly hard of hearing, no other gross focality Results & Data Results & Data Vital Signs (Past 12 Hours) Vital Signs Temp Pulse Pulse Resp BP BP Pulse Ox 10/01/25 22:51 60 18 146/102 H 96 10/01/25 22:30 20 155/93 H 93 10/01/25 20:47 67 16 97 10/01/25 20:47 16 149/77 H 97 10/01/25 20:43 61 10/01/25 19:05 36.6 C 67 18 147/92 H 94 O2 Del Method 10/01/25 22:51 Room Air 10/01/25 22:30 Room Air 10/01/25 20:47 Room Air 10/01/25 20:47 Room Air 10/01/25 20:43 10/01/25 19:05 Room Air Laboratory Results Laboratory Results APTT 31 Seconds (21-31) 10/01/25 20:47 PTT Ratio 1.1 10/01/25 20:47 Troponin I High Sens 27.8 pg/ml (0-20) H 10/01/25 20:47
[2025-10-01] MEDS ORDERED: PHARMACIST DISCHARGE MED REC CONSULT PRN (23:33)
[2025-10-01] MEDS ORDERED: PROMETHAZINE 6.25 MG/50.25 ML BAG IV PRN (23:35)
[2025-10-01] MEDS ORDERED: ACETAMINOPHEN 325 MG TAB PO PRN (23:35)
[2025-10-01] MEDS ORDERED: LORazepam 0.5 MG TAB PO PRN (23:35)
[2025-10-02] MEDS: APIXABAN 5 MG TABLET PO STA (00:11)
[2025-10-02 07:43] VITALS: RESP 18; TEMP 98.2
[2025-10-02] MEDS: METOPROLOL SUCC 25MG EXT REL TAB PO SCH (08:03)
[2025-10-02] MEDS: EZETIMIBE 10 MG TAB PO SCH (08:04)
[2025-10-02] MEDS: OXYBUTYNIN CHLORIDE XL 5 MG TABCR PO SCH (08:04)
[2025-10-02] MEDS: APIXABAN 5 MG TABLET PO SCH (08:04)
[2025-10-02] MEDS: ATORVASTATIN 40 MG TAB PO SCH (08:04)
[2025-10-02 08:19] LABS: Hematocrit (blood only) 39.5 % (42.0-52.0); Hemoglobin 14.0 g/dL (14.0-18.0); Immature Granulocytes # (auto) 0.03 K/uL (0.01-0.20); Immature Granulocytes % (auto) 0.4 %; Mean Corpuscular Hemoglobin 32.1 pg (25.0-34.0); Mean Corpuscular Volume 90.6 fL (80.0-100.0); Platelet Count 214 K/uL (130-400); RDW Standard Deviation 44.9 fL (36.4-46.3); Red Blood Count 4.36 M/uL (4.70-6.10); White Blood Count 8.18 K/ul (4.8-10.8)
[2025-10-02 08:40] LABS: Anion Gap 6.0 (3-11); Blood Urea Nitrogen 15.0 mg/dl (6-23); Calcium 8.9 mg/dl (8.6-10.3); Carbon Dioxide 26.0 mmol/L (21-32); Chloride 107.0 mmol/L (98-107); Cholesterol 68.0 mg/dl (0-200); Creatinine Clr Calc Pharmacy 72.4 ml/min; Glucose 95.0 mg/dl (70-99(Fasting)); HDL Cholesterol 41.0 mg/dl; Potassium 3.9 mmol/L (3.5-5.1); Sodium 139.0 mmol/L (136-145); Triglycerides 38.0 mg/dl (0-150)
[2025-10-02 08:55] LABS: Hemoglobin A1C 5.8 % (4.5-5.6)
[2025-10-02] MEDS ORDERED: STROKE PATIENT DISCHARGE STA (11:01)
--- NOTE | 2025-10-02 11:01 | Discharge Summary ---
<Statement entered by Magno Keen, DO - 10/02/25 14:23> I have seen and examined the patient and have discussed the case with the advance practice provider. I have reviewed the advanced practitioner's documentation, and I agree with, and take responsibility for that plan of care. Patient seen in the morning of discharge. Symptoms completely resolved. MRI unable to be performed until next week when pharmaceutical service representative for pacemaker available to coordinate management of the pacemaker with the MRI. Concern for possible 4th cranial nerve palsy versus TIA. Both of these would be microvascular ischemic etiologies. Patient is on maximal therapy for secondary stroke prevention with Eliquis and Plavix. Patient reports that his blood pressure is usually well-controlled at home. He has been fluctuating here in the hospital with some hypertensive readings, however no severe hypertension. Plan for discharge as outlined below. Will need to continue to monitor blood pressure as an outpatient may need titration of medications. PCP to discuss with patient and coordinate outpatient MRI else to be coordinated with his pacemaker pharmaceutical service representative. I spent a total of 20 minutes coordinating, documenting, and providing care for this patient excluding time spent by another provider/QHP. Discharge Summary Date of Service October 02, 2025 Principal Dx & Hospital Course #1 = Principal Diagnosis (1) TIA (transient ischemic attack): This is an 80yo M with PMH of history of embolic CVA in 2023 on Eliquis, second- degree Mobitz type II AV block status post pacemaker placement, valvular heart disease (moderate AR, mild ), PVD status post surgery, hypertension, hyperlipidemia, prostate cancer status post radiation, peripheral neuropathy as per records, past tobacco abuse and other medical problems listed below who was sent over by communication center operator for brain MRI due to visual changes noted yesterday that have since resolved. Patient was initially seen in ED on 10/01 for pre syncope with nausea and visual disturbances. Head CT, CTA head and neck obtained for stroke eval and CT head, CTA head and neck from 10/01 with no acute changes and was discharged with close follow up with box icer. Have not yet received those records but reportedly sent back to ER for recommended MRI to look for further evidence of a 4th CN palsy. Was admitted further workup with MRI complicated by pacemaker. Due to specific pacemaker, MRI dept would need a pharmaceutical service representative here and they are not due back until Sunday. Patient did not want to wait for that and instead elects to pursue brain MRI as outpatient, as coordinated by PCP. Their office was sent a message regarding plan for outpatient imaging. Patient has not had any diplopia since arrival to the ER last evening. No difficulty speaking or swallowing or focal weakness. Instructed to continue Eliquis, Plavix and statin on discharge along with blood pressure medications. No hemodynamic instability noted. Patient to return home with close follow up in PCP's office and outpatient MRI. Instructed to return with any worsening symptoms. Notes For Next Care Provider possible TIA vs CN palsy - PCP and optometry follow out, msg sent to pcp to coordinate outpatient brain MRI Medication Changes From Visit no changes Admission HPI Per Admitting Provider History obtained from patient and records. 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 Last confinement August 2024 for embolic CVA presenting as slurred speech, facial drooping, visual disturbance and trouble walking. MRI brain showed multiple vascular territory foci of mostly subcentimeter restricted diffusion noted throughout cerebrum, brainstem and cerebellum compatible with acute versus subacute lacunar infarcts likely from proximal thromboembolic source. 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 Patient discharged on statin Rx in addition to DAPT. Eliquis later initiated outpatient for thromboembolic prophylaxis due to mobile echodensity on mitral valve. Patient underwent right TCAR last November 2024 at [facility] [place]. Patient woke up with trouble focusing on the left eye this morning. Double vision. No headache symptoms. No slurred speech or focal arm or leg weakness. Compliant with home medications. Patient denies chest pain, SOB. Patient consulted [facility] ER this a.m. Unremarkable CT head and neck imaging. Normal eye exam as per provider note. Concern for TIA. Patient refused to stay for stroke workup and preferred to see local box icer. Patient seen by local box icer from [facility]. Concern for 4th nerve palsy as per ED provider. Ship Worker recommended return to ER to facilitate MRI. Vision issue currently resolved at time of return to ER. Asymptomatic NSVT episode noted on telemetry during ED stay. 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 Admission Exam Per Admitting Provider GENERAL: Comfortable, pleasant, obese, slightly hard of hearing, no respiratory distress SKIN: Normal color, warm HEENT: Alopecia, pink palpebral conjunctivae, no ptosis, moist buccal mucosa NECK : Supple, no tenderness CHEST : CTA, no tenderness HEART : RRR, systolic murmur ABDOMEN: Some distention, nontender EXTREMITIES : No LE swelling/tenderness, palpable pulses, no other conspicuous deformities noted NEUROLOGIC : Coherent, no eye deviation, no facial asymmetry, slightly hard of hearing, no other gross focality Discharge Exam Gen: WD/WN, NAD, sitting in bedside chair HEENT: Normocephalic, atraumatic, mucous membranes moist Lung: Clear to Auscultation bilaterally, no wheezes/rales/rhonchi Heart: Regular rate, regular rhythm, no murmurs, rubs, or gallops Abdomen: Soft, NT, ND +BS x 4 Extremities: no edema Neuro: A&Ox3, PERRL, EOMI, no face palsy, no dysarthria, CN's II-XI intact bilaterally and moves all extremities Skin: Warm, no rash Updated Medication List Medication Instructions Recorded Confirmed Type amlodipine 5 mg tablet 5 mg PO QAM 08/31/24 10/01/25 History pantoprazole 40 mg tablet,delayed 40 mg PO DAILY 08/31/24 10/01/25 History release atorvastatin 40 mg tablet 40 mg PO QAM #30 tabs 09/04/24 10/01/25 Rx clopidogrel 75 mg tablet 75 mg PO DAILY 09/04/24 10/01/25 History ezetimibe 10 mg tablet 10 mg PO QAM #30 tabs 09/04/24 10/01/25 Rx lisinopril 20 mg tablet 20 mg PO BID 09/30/25 10/01/25 History metoprolol succinate 25 mg 25 mg PO DAILY 09/30/25 10/01/25 History tablet,extended release 24 hr solifenacin 5 mg tablet 5 mg PO DAILY 09/30/25 10/01/25 History apixaban 5 mg tablet (Eliquis) 5 mg PO BID 10/01/25 10/01/25 History Hospital Stay Data Consultations 10/01/25 20:49 ED Decision to Admit Stat 10/02/25 06:59 HIM [Consult Health Information Management] Routine Diagnostic Imagining Performed 10/02/25 23:33 MR brain wo con Routine Pending Results Patient Have Any Pending Studies at Discharge: Yes Discharge Instructions Given to Patient (Per Discharging Provider) MEDICATION CHANGES: No changes SUMMARY OF TEST RESULTS: CT head, CTA head and neck from 10/01 with no acute changes RECOMMENDATIONS FOR FOLLOW-UP: Follow up with PCP as scheduled. Please follow up for outpatient MRI as coordinated by PCP (unable to obtain while in-patient due to no rep available for pacemaker until next week) Continue medication regimen as scheduled aside from changes noted above. OTHER INSTRUCTIONS: Seek medical attention if you have: * temperature above 101 * chest pain or trouble breathing * abdominal pain, nausea, vomiting * diarrhea, dark stools or bloody stools * any unanswered questions or concerns Call 911 if symptoms are severe. Please take good care of yourself. Call if you have any questions or problems. You can reach a [facility] hospitalist on duty at [facility] 24 hours a day by calling [phone]. Total Time Total Time Spent Total Time Spent (In Minutes): 50
--- NOTE | 2025-10-02 11:13 | Pharmacy Report ---
- Date of Service October 02, 2025 - Pharmacy CVA/TIA Medication Review Medications to Prevent Stroke handout has been added to the patients discharge packet. Antiplatelet(s) * clopidogrel 75 mg PO daily Cholesterol * High intensity statin: atorvastatin 40 mg daily DVT Prophylaxis * Apixaban for Afib Therapeutic Anticoagulation * Hx Afib/Aflutter noted, and patient is currently receiving apixaban Type 2 Diabetes * Patient does not have T2DM
[2025-10-02 11:20] VITALS: BP 138/81; PULSE 58; O2SAT 93
== END 2025-10-02 12:25 | disposition home or self-care (01) ==
LOC: 2N 19:02 → ED 19:02 → SUATTDRO 23:10 → 2N 10-02 00:17